=== PATIENT | female | born 1940 | race Caucasian/White ===

== ENCOUNTER 2018-05-01 18:46 | Emergency (ER) | payer MEDICARE, BC ==
--- NOTE | 2018-05-01 20:12 | ED ---
Abdominal Pain/Female - HPI Summary HPI Summary: Pt is a 77 y/o F presenting to the ED with a chief complaint of LLQ abd pain intermittently since 04/28/18 but steady since this afternoon. The pt reports a low fever, abd pain, normal bowel movements, and decreased frequency of urination. The pt denies N/V, hx of stomach surgery, diverticulitis, or kidney stones. - History of Current Complaint Chief Complaint: EDAbdPain Stated Complaint: SEVERE ABD CRAMPS SINCE 4 PM PER PT Time Seen by Provider: 05/01/18 20:08 Hx Obtained From: Patient Onset/Duration: Gradual Onset, Lasting Days, Still Present Timing: Days Severity Initially: Mild Severity Currently: Moderate Pain Intensity: 3 Pain Scale Used: 0-10 Numeric Location: Discrete At: LLQ Radiates: No Character: Cramping Aggravating Factor(s): Movement, Deep Breaths Alleviating Factor(s): Nothing Associated Signs and Symptoms: Positive: Fever, Urinary Symptoms - decreased urination. Negative: Nausea, Vomiting Allergies/Adverse Reactions: Allergies Allergy/AdvReac Type Severity Reaction Status Date / Time anaesthesia Allergy Severe violent Uncoded 05/01/18 18:50 emesis Home Medications: Home Medications [employer] Tab 1 cap PO DAILY 05/01/18 [History Confirmed ] Fish Oil 1,200 mg Softgel 1 cap PO DAILY 05/01/18 [History Confirmed 05/01/18] Vitamin C TAB* 1,000 mg PO DAILY 05/01/18 [History Confirmed 05/01/18] Vitamin D TAB* 1,000 units PO DAILY 05/01/18 [History Confirmed 05/01/18] PMH/Surg Hx/FS Hx/Imm Hx Previously Healthy: Yes Endocrine/Hematology History: Reports: Hx Thyroid Disease - 1/2 thyroid removed no problems since Denies: Hx Diabetes Cardiovascular History: Reports: Hx Angina, Hx Hypercholesterolemia, Hx Hypertension Respiratory History: Denies: Hx Asthma, Hx Chronic Obstructive Pulmonary Disease (COPD) GI History: Denies: Hx Diverticulosis History: Denies: Hx Kidney Stones Musculoskeletal History: Reports: Hx 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 Denies: Hx Osteoporosis Sensory History: Reports: Hx Cataracts - slight in both, Hx Contacts or Glasses Denies: Hx Hearing Aid Opthamlomology History: Reports: Hx Cataracts - slight in both, Hx Contacts or Glasses Neurological History: Reports: Hx Migraine - off and on - none recently - Cancer History Hx Chemotherapy: No Hx Radiation Therapy: No - Surgical History Surgery Procedure, Year, and Place: partial thyroidectomy Hx Anesthesia Reactions: Yes Infectious Disease History: No Infectious Disease History: Denies: Traveled Outside the [place] in Last 30 Days - Family History Known Family History: Negative: Renal Disease, Respiratory Disease - Social History Alcohol Use: None Hx Substance Use: No Substance Use Type: Reports: None Hx Tobacco Use: No Smoking Status (MU): Never Smoked Tobacco Review of Systems Positive: Fever Positive: Abdominal Pain. Negative: Vomiting, Nausea Positive: frequency - decreased frequency of urination All Other Systems Reviewed And Are Negative: Yes Physical Exam - Summary Physical Exam Summary: VITAL SIGNS: Reviewed. GENERAL: Patient is a well-developed and nourished female who is lying comfortable in the stretcher. Patient is not in any acute respiratory distress. HEAD AND FACE: No signs of trauma. No ecchymosis, hematomas or skull depressions. No sinus tenderness. EYES: PERRLA, EOMI x 2, No injected conjunctiva, no nystagmus. EARS: Hearing grossly intact. Ear canals and tympanic membranes are within normal limits. MOUTH: Oropharynx within normal limits. NECK: Supple, trachea is midline, no adenopathy, no JVD, no carotid bruit, no c- spine tenderness, neck with full ROM. CHEST: Symmetric, no tenderness at palpation LUNGS: Clear to auscultation bilaterally. No wheezing or crackles. CVS: Regular rate and rhythm, S1 and S2 present, no murmurs or gallops appreciated. ABDOMEN: LLQ tenderness. Abd diffusely distended. No rebound no guarding, and no masses palpated. Bowel sounds are normal. EXTREMITIES: FROM in all major joints, no edema, no cyanosis or clubbing. NEURO: Alert and oriented x 3. No acute neurological deficits. Speech is normal and follows commands. SKIN: Dry and warm Triage Information Reviewed: Yes Vital Signs On Initial Exam: Initial Vitals Temp Pulse Resp BP Pulse Ox 98.4 F 95 18 165/80 95 05/01/18 18:50 05/01/18 18:50 05/01/18 18:50 05/01/18 18:50 05/01/18 18:50 Vital Signs Reviewed: Yes Diagnostics - Vital Signs Vital Signs Temp Pulse Resp BP Pulse Ox 03/05/19 18:50 98.4 F 95 18 165/80 95 - Laboratory Result Diagrams: 05/01/18 20:43 05/01/18 20:43 Lab Statement: Any lab studies that have been ordered have been reviewed, and results considered in the medical decision making process. - CT Abd/pelv CT CT Interpretation Completed By: Radiologist Summary of CT Findings: 1. Fairly extensive sigmoid diverticulitis. No evidence of perforation or abscess. Mild associated small bowel ileus. 2. Left adnexal cyst measuring 3 x 4 cm. Followup ultrasound recommended, non-emergently. ED physician has reviewed this report. Abdominal Pain Fem Course/Dx - Course Course Of Treatment: Pt is a 77 y/o F presenting to the ED with a chief complaint of abd pain intermittently since 04/28/18 in her LLQ but steady since this afternoon. The pt reports a low fever, abd pain, normal bowel movements, and decreased frequency of urination. The pt denies N/V. Abd/pelv CT shows 1. Fairly extensive sigmoid diverticulitis. No evidence of perforation or abscess. Mild associated small bowel ileus.2. Left adnexal cyst measuring 3 x 4 cm. Followup ultrasound recommended, non-emergently. I discussed the results with the patient and gave her the option of going home or being admitted to the hospital. She would like to go home, and she will be discharged with abx and instructions to follow up with her primary care provider. - Diagnoses Provider Diagnoses: Diverticulitis Discharge - Sign-Out/Discharge Documenting (check all that apply): Patient Departure Patient Received Moderate/Deep Sedation with Procedure: No - Discharge Plan Condition: Stable Disposition: HOME Prescriptions: Levofloxacin TAB* [Levaquin TAB*] 500 mg PO DAILY #7 tab metroNIDAZOLE [Flagyl 500 MG TAB] 500 mg PO TID #1 tab Patient Education Materials: Diverticulitis (ED) Referrals: Yola Chua MD [Primary Care Provider] - Additional Instructions: Please follow up with your primary care provider within the next three days. Return to the emergency department with any new or worsening symptoms. - Attestation Statements Document Initiated by Scribe: Yes Documenting Scribe: Fide Mims Provider For Whom Scribe is Documenting (Include Credential): Viktor Olivas MD. Scribe Attestation: I, Fide O'Raimundo, scribed for Viktor Olivas MD. on 05/02/18 at 0158. Status of Scribe Document: Ready
[2018-05-01] MEDS ORDERED: Acetaminophen TAB* 325 MG PO ONE (20:27)
[2018-05-01] MEDS ORDERED: NS 0.9% 1000 ML** 1,000 ML IV ONE (20:27)
[2018-05-01 20:54] LABS: ABS Basophils 0.1 10^3/ul (0-0.2); ABS Eosinophils 0 10^3/ul (0-0.6); ABS Lymphocytes 1.4 10^3/ul (1.0-4.8); ABS Monocytes 0.9 10^3/ul (0-0.8); ABS Neutrophils 9.2 10^3/ul (1.5-7.7); ABS Nucleated RBC 0 10^3/ul; Eosinophil % 0.1 %; Hematocrit 36 % (35-47); Hemoglobin 11.7 g/dl (12.0-16.0); Lymphocyte % 12.3 %; Mean Corpuscular HGB Conc 33 g/dl (31-36); Mean Corpuscular Hemoglobin 29 pg (27-31); Mean Corpuscular Volume 87 fL (80-97); Mean Platelet Volume 7.4 fL (7.4-10.4); Nucleated Red Blood Cells % 0; Platelet Count 307 10^3/ul (150-450); Red Blood Count 4.09 10^6/ul (4.00-5.40); Red Cell Distribution Width 14 % (10.5-15); White Blood Count 11.6 10^3/ul (3.5-10.8)
[2018-05-01 21:06] LABS: Activated Partial Thrombo Time 25.5 seconds (26.0-36.3); INR 1.1 (0.77-1.02)
[2018-05-01 21:11] LABS: Albumin/Globulin Ratio 1.2 (1-3); C Reactive Protein 95.43 mg/L (<8.01); Calcium 9.4 mg/dL (8.6-10.3); EGFR African American 109.5 (>60); EGFR Non-African American 90.5 (>60); Globulin 3.3 g/dL (2-4); Potassium 3.8 mmol/L (3.5-5.0); Total Bilirubin 0.6 mg/dL (0.2-1.0); Total Protein 7.3 g/dL (6.4-8.9)
[2018-05-01] MEDS ORDERED: Iohexol 300* (CONTRAST) 10 ML SDV IV ONE (21:18)
[2018-05-01] MEDS ORDERED: metroNIDAZOLE TAB* 250 MG PO ONE (23:46)
[2018-05-01] MEDS ORDERED: Levofloxacin TAB* 500 MG PO ONE (23:51)
[2018-05-02 00:59] VITALS: BP 126/67
== END 2018-05-02 00:35 | disposition home or self-care (01) ==
LOC: ED 18:46
DX: K57.92 Diverticulitis of intestine, part unspecified, without perforation or abscess without bleeding (principal); R50.9 Fever, unspecified; R10.32 Left lower quadrant pain; E07.9 Disorder of thyroid, unspecified; I10 Essential (primary) hypertension; I20.9 Angina pectoris, unspecified
CPT/HCPCS: 36415; 74177; 80053; 82150; 83605; 83690; 83735; 85025; 85610; 85730; 86140; 87040; 96360; 96361; 99284; A9270-GY; Q9967

== ENCOUNTER 2019-03-25 21:52 | Inpatient (IN) | payer MEDICARE, BC ==
[2019-03-26 00:16] LABS: ABS Basophils 0.1 10^3/ul (0-0.2); ABS Lymphocytes 1.1 10^3/ul (1.0-4.8); ABS Monocytes 0.9 10^3/ul (0-0.8); ABS Neutrophils 9.8 10^3/ul (1.5-7.7); Eosinophil % 0.1 %; Hematocrit 34 % (35-47); Hemoglobin 11.6 g/dL (12.0-16.0); Lymphocyte % 9.5 %; Mean Corpuscular HGB Conc 34 g/dL (31-36); Mean Corpuscular Hemoglobin 28 pg (27-31); Mean Corpuscular Volume 82 fL (80-97); Mean Platelet Volume 6.9 fL (7.4-10.4); Platelet Count 472 10^3/uL (150-450); Red Blood Count 4.21 10^6 /uL (3.70-4.87); Red Cell Distribution Width 16 % (10-15); White Blood Count 11.8 10^3/uL (3.5-10.8)
[2019-03-26 00:27] LABS: Albumin 3.8 g/dL (3.2-5.2); Albumin/Globulin Ratio 1.1 (1-3); BUN/Creatinine Ratio 10.4 (8-20); C Reactive Protein 91.27 mg/L (<8.01); Calcium 9.4 mg/dL (8.6-10.3); EGFR African American 46.1 (>60); EGFR Non-African American 38.1 (>60); Globulin 3.5 g/dL (2-4); Potassium 3.4 mmol/L (3.5-5.0); Total Bilirubin 0.5 mg/dL (0.2-1.0); Total Protein 7.3 g/dL (6.4-8.9)
[2019-03-26 01:22] LABS: Urine Appearance Clear; Urine Bilirubin Negative (Negative); Urine Blood Negative (Negative); Urine Color Yellow; Urine Glucose Negative (Negative); Urine Ketones Trace (Negative); Urine Nitrite Negative (Negative); Urine Protein Negative (Negative); Urine Specific Gravity 1.009 (1.010-1.030); Urine Urobilinogen Negative (Negative)
[2019-03-26 01:30] LABS: Urine Bacteria 1+ (Absent); Urine Red Blood Cell 2+(6-10/hpf) (Absent); Urine Squamous Epithelial Cell Present (Absent); Urine White Blood Cell 3+(>20/hpf) (Absent)
[2019-03-26] MEDS ORDERED: Ondansetron INJ* 2 MG/ML VIAL IV ONE (02:02)
[2019-03-26] MEDS ORDERED: Famotidine IV* 10 MG/ML 2 ML (20 mg) IV SLOW PU ONE (02:02)
[2019-03-26] MEDS ORDERED: Lactated Ringers 1000 ML Bag* 1,000 ML IV ONE ×2 (02:02→06:24)
--- NOTE | 2019-03-26 02:09 | ED ---
Abdominal Pain/Female - HPI Summary HPI Summary: The patient is a 78 y/o female with a chief complaint of LLQ pain onset six days ago. She reports that she has a history of diverticulitis initially diagnosed a year ago but managed with antibiotic use. She was re-diagnosed six days ago by her PCP, who placed her on Cipro and Flagyl. She has since been experiencing LLQ and left flank pain and GI symptoms including nausea, vomiting , diarrhea, and decreased oral intake. She denies any dysuria or burning with urination. She is not currently in pain. She notes history of gallstones without any surgery. No other abdominal surgeries. She is also concerned for whiteness on her tongue without any current steroid use. PMHx: thyroid disease with partial removal, angina, HLD, HTN. Nonsmoker, no EtOH, no substance use. Medications reviewed. Allergies noted. - History of Current Complaint Chief Complaint: EDAbdPain Stated Complaint: POSSIBLE ALLERGIC REACTION Time Seen by Provider: 03/26/19 01:47 Hx Obtained From: Patient Onset/Duration: Lasting Days - six, Still Present Timing: Constant Severity Initially: Mild Severity Currently: Moderate Pain Intensity: 0 Pain Scale Used: 0-10 Numeric Location: Discrete At: LLQ Radiates: No Aggravating Factor(s): Nothing Alleviating Factor(s): Nothing Associated Signs and Symptoms: Positive: Nausea, Vomiting, Diarrhea, Other: - decreased oral intake, whiteness of tongue. Negative: Urinary Symptoms Allergies/Adverse Reactions: Allergies Allergy/AdvReac Type Severity Reaction Status Date / Time Anesthetics - Amide Type AdvReac Severe Vomiting Verified 03/26/19 10:45 Anesthetics - Kerry Type- AdvReac Severe Vomiting Verified 03/26/19 10:45 Parabens Home Medications: Home Medications Ciprofloxacin TAB* [Cipro 500 MG TAB*] 500 mg PO BID 03/26/19 [History Confirmed 03/26/19] PMH/Surg Hx/FS Hx/Imm Hx Endocrine/Hematology History: Reports: Hx Thyroid Disease - 1/2 thyroid removed no problems since Denies: Hx Diabetes Cardiovascular History: Reports: Hx Angina, Hx Hypercholesterolemia, Hx Hypertension, Other Cardiovascular Problems/Disorders - HYPERCHOLESTEROLEMIA Respiratory History: Denies: Hx Asthma, Hx Chronic Obstructive Pulmonary Disease (COPD) GI History: Reports: Other GI Disorders - diverticulitis History: Denies: Hx Kidney Stones Musculoskeletal History: Reports: Hx 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 Denies: Hx Osteoporosis Sensory History: Reports: Hx Cataracts - slight in both, Hx Contacts or Glasses Denies: Hx Hearing Aid Opthamlomology History: Reports: Hx Cataracts - slight in both, Hx Contacts or Glasses Neurological History: Reports: Hx Migraine - off and on - none recently - Cancer History Hx Chemotherapy: No Hx Radiation Therapy: No - Surgical History Surgical History: Yes Surgery Procedure, Year, and Place: partial thyroidectomy Hx Anesthesia Reactions: Yes Infectious Disease History: No Infectious Disease History: Denies: Traveled Outside the [place] in Last 30 Days - Family History Known Family History: Negative: Renal Disease, Respiratory Disease - Social History Alcohol Use: None Hx Substance Use: No Substance Use Type: Reports: None Hx Tobacco Use: No Smoking Status (MU): Never Smoked Tobacco Review of Systems Positive: Other - whiteness of tongue Positive: Abdominal Pain - LLQ, Vomiting, Diarrhea, Nausea, Other - decreased oral intake Positive: flank pain - left. Negative: burning, dysuria All Other Systems Reviewed And Are Negative: Yes Physical Exam - Summary Physical Exam Summary: Constitutional: Well-developed, Well-nourished, Alert. (-) Distressed Skin: Warm, Dry HENT: Normocephalic; Atraumatic Eyes: Conjunctiva normal Neck: Musculoskeletal ROM normal neck. (-) JVD, (-) Stridor, (-) Tracheal deviation Cardio: Rhythm regular, rate normal, Heart sounds normal; Intact distal pulses; The pedal pulses are 2+ and symmetric. Radial pulses are 2+ and symmetric. Pulmonary/Chest wall: Effort normal. (-) Respiratory distress, (-) Wheezes, (-) Rales Abd: Soft, (-) tenderness, (-) Distension, (-) Guarding, (-) Rebound Musculoskeletal: (-) CVA tenderness, (-) Edema Neuro: Alert, Oriented x3 Psych: Mood and affect Normal Triage Information Reviewed: Yes Vital Signs On Initial Exam: Initial Vitals Temp Pulse Resp BP Pulse Ox 99.2 F 92 18 155/81 96 03/25/19 21:54 03/25/19 21:54 03/25/19 21:54 03/25/19 21:54 03/25/19 21:54 Vital Signs Reviewed: Yes Procedures - Sedation Patient Received Moderate/Deep Sedation with Procedure: No Diagnostics - Vital Signs Vital Signs Temp Pulse Resp BP Pulse Ox 03/26/19 01:06 81 94 03/26/19 01:04 81 145/84 95 03/26/19 00:00 98.3 F 85 18 143/81 96 03/25/19 21:54 99.2 F 92 18 155/81 96 - Laboratory Lab Results: Lab Results 03/25/19 03/26/19 03/26/19 Range/Units 23:09 00:02 00:02 WBC 11.8 H (3.5-10.8) 10^3/uL RBC 4.21 (3.70-4.87) 10^6 /uL Hgb 11.6 L (12.0-16.0) g/dL Hct 34 L (35-47) % MCV 82 (80-97) fL MCH 28 (27-31) pg MCHC 34 (31-36) g/dL RDW 16 H (10-15) % Plt Count 472 H (150-450) 10^3/uL MPV 6.9 L (7.4-10.4) fL Neut % (Auto) 82.4 % Lymph % (Auto) 9.5 % [place] % (Auto) 7.5 % Eos % (Auto) 0.1 % Baso % (Auto) 0.5 % Absolute Neuts (auto) 9.8 H (1.5-7.7) 10^3/ul Absolute Lymphs (auto) 1.1 (1.0-4.8) 10^3/ul Absolute Monos (auto) 0.9 H (0-0.8) 10^3/ul Absolute Eos (auto) 0.0 (0-0.6) 10^3/ul Absolute Basos (auto) 0.1 (0-0.2) 10^3/ul Absolute Nucleated RBC 0.0 10^3/ul Nucleated RBC % 0.0 Sodium 136 (135-145) mmol/L Potassium 3.4 L (3.5-5.0) mmol/L Chloride 101 (101-111) mmol/L Carbon Dioxide 26 (22-32) mmol/L Anion Gap 9 (2-11) mmol/L BUN 14 (6-24) mg/dL Creatinine 1.35 H (0.51-0.95) mg/dL Est GFR ( Amer) 46.1 (>60) Est GFR (Non-Af Amer) 38.1 (>60) BUN/Creatinine Ratio 10.4 (8-20) Glucose 122 H (70-100) mg/dL Lactic Acid (0.5-2.0) mmol/L Calcium 9.4 (8.6-10.3) mg/dL Total Bilirubin 0.50 (0.2-1.0) mg/dL AST 15 (13-39) U/L ALT 18 (7-52) U/L Alkaline Phosphatase 85 (34-104) U/L C-Reactive Protein 91.27 H (<8.01) mg/L Total Protein 7.3 (6.4-8.9) g/dL Albumin 3.8 (3.2-5.2) g/dL Globulin 3.5 (2-4) g/dL Albumin/Globulin Ratio 1.1 (1-3) Lipase 19 (11.0-82.0) U/L Urine Color Yellow Urine Appearance Clear Urine pH 5.0 (5-9) Ur Specific [place] 1.009 L (1.010-1.030) Urine Protein Negative (Negative) Urine Ketones Trace A (Negative) Urine Blood Negative (Negative) Urine Nitrate Negative (Negative) Urine Bilirubin Negative (Negative) Urine Urobilinogen Negative (Negative) Ur Leukocyte Esterase 3+ A (Negative) Urine WBC (Auto) 3+(>20/hpf) A (Absent) Urine RBC (Auto) 2+(6-10/hpf) A (Absent) Ur Squamous Epith Cells Present A (Absent) Urine Bacteria 1+ A (Absent) Urine Glucose Negative (Negative) 03/26/19 Range/Units 00:02 WBC (3.5-10.8) 10^3/uL RBC (3.70-4.87) 10^6 /uL Hgb (12.0-16.0) g/dL Hct (35-47) % MCV (80-97) fL MCH (27-31) pg MCHC (31-36) g/dL RDW (10-15) % Plt Count (150-450) 10^3/uL MPV (7.4-10.4) fL Neut % (Auto) % Lymph % (Auto) % [place] % (Auto) % Eos % (Auto) % Baso % (Auto) % Absolute Neuts (auto) (1.5-7.7) 10^3/ul Absolute Lymphs (auto) (1.0-4.8) 10^3/ul Absolute Monos (auto) (0-0.8) 10^3/ul Absolute Eos (auto) (0-0.6) 10^3/ul Absolute Basos (auto) (0-0.2) 10^3/ul Absolute Nucleated RBC 10^3/ul Nucleated RBC % Sodium (135-145) mmol/L Potassium (3.5-5.0) mmol/L Chloride (101-111) mmol/L Carbon Dioxide (22-32) mmol/L Anion Gap (2-11) mmol/L BUN (6-24) mg/dL Creatinine (0.51-0.95) mg/dL Est GFR ( Amer) (>60) Est GFR (Non-Af Amer) (>60) BUN/Creatinine Ratio (8-20) Glucose (70-100) mg/dL Lactic Acid 0.5 (0.5-2.0) mmol/L Calcium (8.6-10.3) mg/dL Total Bilirubin (0.2-1.0) mg/dL AST (13-39) U/L ALT (7-52) U/L Alkaline Phosphatase (34-104) U/L C-Reactive Protein (<8.01) mg/L Total Protein (6.4-8.9) g/dL Albumin (3.2-5.2) g/dL Globulin (2-4) g/dL Albumin/Globulin Ratio (1-3) Lipase (11.0-82.0) U/L Urine Color Urine Appearance Urine pH (5-9) Ur Specific [place] (1.010-1.030) Urine Protein (Negative) Urine Ketones (Negative) Urine Blood (Negative) Urine Nitrate (Negative) Urine Bilirubin (Negative) Urine Urobilinogen (Negative) Ur Leukocyte Esterase (Negative) Urine WBC (Auto) (Absent) Urine RBC (Auto) (Absent) Ur Squamous Epith Cells (Absent) Urine Bacteria (Absent) Urine Glucose (Negative) Result Diagrams: 03/27/19 08:11 03/27/19 08:11 Lab Statement: Any lab studies that have been ordered have been reviewed, and results considered in the medical decision making process. - Radiology Abd/Pel CT Radiology Interpretation Completed By: Radiologist Summary of Radiographic Findings: Impression: 1. There is wall thickening noted of the sigmoid colon with surrounding inflammatory changes and scattered diverticula, findings are concerning for acute diverticulitis. There are multiple foci of pneumoperitoneum noted adjacent to the region of bowel inflammation concerning for perforation. 2. There are large gallstones noted within a partially collapsed gallbladder. 3. If there is a stable left adnexal cyst noted measuring approximately 4.2 cm. The uterus is unremarkable. 4. There is a stable calcified lesion noted in the right adnexa measuring up to 1.8 cm. ED physician has reviewed this report. Re-Evaluation - Re-Evaluation First Eval Comment: Plan for fluids, antiemetics, CT Second Eval Re-Evaluation Time: 04:00 Comment: Patient agreeable with admission Abdominal Pain Fem Course/Dx - Course Course Of Treatment: Patient is a 78 y/o female who has a history of diverticulitis managed with antibiotics presenting with an acute episode of LLQ and left flank pain accompanied by decreased oral intake, nausea, vomiting, and diarrhea despite being placed on Cipro and Flagyl by her PCP. No symptoms. Physical exam is negative for abdominal or CVA tenderness. Labs results reveal elevated WBCs, CRP of 91.27. UA consistent with UTI with 3+ WBCs, 2+ RBCs, 1+ bacteria. Patient administered lactated ringers, Pepcid, Zofran, and Zosyn in the ED. Abd/Pel CT impression reveals diverticulitis with perforation. Dr. Santiago accepts the patient for admission. Patient agreeable with plan. - Diagnoses Provider Diagnoses: Diverticulitis of intestine with perforation, Peritonitis - Provider Notifications Discussed Care Of Patient With: Harvey Santiago - hospitalist Time Discussed With Above Provider: 04:30 Instructed by Provider To: Other - Dr. Santiago accepts patient for admission. Discharge ED - Sign-Out/Discharge Documenting (check all that apply): Patient Departure - Patient accepted for admission by Dr. Santiago. - Discharge Plan Condition: Stable Disposition: ADMITTED TO [facility] - Attestation Statements Document Initiated by David: Yes Documenting Scribe: Angie Arroyo Provider For Whom David is Documenting (Include Credential): MD David Akers Attestation: IAngie scribed for Dr. Sergio Harris MD on 03/27/19 at 1147. Status of Scribe Document: Ready
[2019-03-26] MEDS ORDERED: Iodixanol* (CONTRAST) 320 MG/ML 100 ML SDV IV ONE (04:14)
[2019-03-26] MEDS ORDERED: Piperacillin/Tazobac ADVAN(*) 3.375 GM in NS 0.9% 100 ML* 100 ML IVPB ONE ×2 (04:50→08:00)
[2019-03-26] MEDS ORDERED: Lactated Ringers 1000 ML Bag* 1,000 ML IV SCH (05:00)
[2019-03-26] MEDS ORDERED: Zosyn per Pharmacy* NOTE FOLLOW UP SCH ×2 (06:00→07:00)
[2019-03-26] MEDS ORDERED: NS 0.9% 1000 ML** 1,000 ML IV SCH (07:00)
[2019-03-26] MEDS ORDERED: Lorazepam PYXIS KEY ONE (08:47)
[2019-03-26] MEDS: amLODIPine TAB* 5 MG PO SCH (09:25)
[2019-03-26] MEDS ORDERED: Clotrimazole TROCHE* 10 MG TROCHE PO SCH (10:00)
[2019-03-26] MEDS: Clotrimazole TROCHE* 10 MG TROCHE PO SCH ×4 (10:02→23:10)
[2019-03-26] MEDS: Pantoprazole IV* 40 MG IV SCH (10:45)
--- NOTE | 2019-03-26 11:16 | HP ---
HISTORY AND PHYSICAL: DATE OF ADMISSION: 03/26/19 ATTENDING PHYSICIAN: Harvey Santiago MD PRIMARY CARE PROVIDER: Dr. Chua. CONSULTING GENERAL SURGEON: Dr. Oakes. CHIEF COMPLAINT: Nausea, vomiting, inability to tolerate p.o., left lower quadrant abdominal pain. HISTORY OF PRESENT ILLNESS: Marycruz Mcadams is a 78-year-old female with past medical history of hypertension, hyperlipidemia, hemorrhoids, and episode of diverticulitis in 2019. Approximately, 03/13/19 she started to develop left lower quadrant abdominal pain. A week later on 03/20/19, she saw a colleague of her primary care provider, Dr. Velez, who suspected given her history another episode of diverticulitis and she was started empirically on ciprofloxacin and Flagyl. The pain almost immediately improved within a day or 2. However, she continued to have some nausea and vomiting and was initially only tolerating things like Jell-O, poornima jake, but then even the Jell-O she was not tolerating. She vomited once a day prior to admission, twice the day of admission. She also noticed some white discoloration of her tongue and that was one of the side effects of the medications to seek medical attention and therefore she did so. She had been having some low-grade fevers at home. She has been having some diarrhea and she, given her history of hemorrhoids, sometimes has some trace blood with diarrhea. Initial workup in [facility] emergency room included a mild leukocytosis of 11.8, temperature of 99.2, heart rate of 92. No lactic acidosis at 0.5. CRP was 91. Creatinine was elevated to 1.35 from baseline of 0.7 a month prior. She had a CT abdomen and pelvis with IV and oral contrast, demonstrated wall thickening of the sigmoid colon with surrounding inflammatory changes and scattered diverticula, findings concerning for acute diverticulitis. There were a multiple foci of pneumoperitoneum noted adjacent to the region of bowel inflammation concerning for perforation. There were large gallstones noted in the partially collapsed gallbladder, stable left adnexal cyst measuring approximately 4.2 cm and a stable calcified lesion in the right adnexa measuring up to 1.[address] Harris contacted general surgeon called Dr. Oakes, who recommended IV fluids, Zosyn, and p.o. and consideration for Medicine admission until he can evaluate further in the morning given Dr. Harris's report that she was nontoxic-appearing with no peritoneal signs or even any abdominal pain at the moment and mild leukocytosis. A year ago, she was diagnosed with diverticulitis that was fairly extensive in the sigmoid colon with oral antibiotics without any admission. She has had 3 colonoscopies in her life. She would refuse any further given that her from a perforation complication from a colonoscopy at this hospital approximately 3 years ago. She has never had a EGD before. PAST MEDICAL HISTORY: Hypertension, hyperlipidemia, hemorrhoids diverticulitis. PAST SURGICAL HISTORY: Half of her thyroid was removed. MEDICATIONS: Include: 1. Fish oil 1 capsule p.o. daily. 2. [employer] tab 1 capsule p.o. daily. 3. Aspirin 81 mg daily. 4. Vitamin D 1000 units p.o. daily. 5. Vitamin C 1000 mg p.o. daily. 6. Flagyl 500 mg p.o. t.i.d. 7. Losartan 100 mg p.o. daily. 8. Fluvastatin 40 mg p.o. at bedtime. 9. Ciprofloxacin 500 mg p.o. b.i.d. ALLERGIES: She had a severe reaction with to one of her anesthesia procedures to remove half of her thyroid. No other details available. FAMILY HISTORY: Her father and mother both of lung cancer at age mother of 51 and father of 61. She has 1 brother who of a myocardial infarction and exposure. One sister is alive and one sister who of gallbladder cancer. Both brother and sister around age 80. SOCIAL HISTORY: The patient is a never smoker, does not drink. She is a retired teacher. 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 She desires to be a full code. Her medical surrogate is her son, Juan Luis, who is at the bedside. REVIEW OF SYSTEMS: Complete 14-point review of systems negative except as per HPI. PHYSICAL EXAMINATION GENERAL APPEARANCE: In no acute distress. VITAL SIGNS: Temperature initially 99.2, pulse rate initially 92, satting 92% to 96% on room air, blood pressure 158/81. HEENT: Normocephalic and atraumatic. Pupils are equal, round, and reactive to light. Extraocular motions intact. No scleral icterus. There is evidence of thrush in her mouth. LUNGS: Clear to auscultation bilaterally with no wheezing, rales, or rhonchi. CARDIOVASCULAR: Regular rate and rhythm. No murmurs, rubs, or gallops. ABDOMEN: Soft, nontender, nondistended. No rebound or guarding. No Marrero sign. No CVA tenderness. EXTREMITIES: Warm and well perfused. No peripheral edema. SKIN: No lesions. No rashes. NEUROLOGIC: Cranial nerves II through XII intact. Moving all extremities. Walking in a stable gait. Alert and oriented x4. DIAGNOSTIC STUDIES/LAB DATA: White count 11.8, hemoglobin 11.6, hematocrit 34, platelets 472, RDW 16, MCV 82. Sodium 136, potassium 3.4, carbon dioxide 26, BUN 14, creatinine 1.35, glucose 122, lactic acid 0.5, calcium 9.4. Total bili 0.5, AST 15, ALT 18, alk phos 85. CRP 91.3. Albumin 3.8. Lipase 19. Urinalysis: 3+ leukocyte esterase, 3+ wbc's, 2+ rbc's, 1+ bacteria, trace ketones, specific gravity 1.009, squamous epithelial cells present. Imaging: CT abdomen and pelvis with p.o. and IV contrast demonstrated wall thickening of the sigmoid colon with surrounding inflammatory changes and scattered diverticula, findings concerning for acute diverticulitis. There were a multiple foci of pneumoperitoneum noted adjacent to the region of bowel inflammation concerning for perforation. There were large gallstones noted in the partially collapsed gallbladder, stable left adnexal cyst measuring approximately 4.2 cm and a stable calcified lesion in the right adnexa measuring up to 1.8 cm. ASSESSMENT AND PLAN: Pineda Mcadams is a 78-year-old female with past medical history of hypertension, hyperlipidemia, hemorrhoids, diverticulitis, who had abdominal pain starting about 2 weeks ago and resolved after starting outpatient Cipro and Flagyl, but she had continued progressive nausea, vomiting , and inability to tolerate p.o. intake on these medications. She developed white discoloration of her tongue, which concerned her. She has evidence of acute diverticulitis on CT abdomen and pelvis with p.o. and IV contrast. The case has been discussed with between Dr. Oakes and Dr. Harris. Dr. Oakes plans to see the patient in the morning after Medicine admits the patient, see her on General Surgery service. Recommendation to continue Zosyn, IV fluids, n.p.o. in case surgical intervention is required. She is nontoxic-appearing with no peritoneal signs. We will give her Zofran p.r.n. Get an EKG for possible preoperative risk stratification and check her QTc. I am going to continue her fluvastatin or can be substituted with atorvastatin as per formulary requirement. For her thrush, I am going to start clotrimazole troches 10 mg p.o. 5 times a day starting at [address] Oakes can see her and rule out that she would need an operative time this morning. Holding her losartan given her acute kidney injury with elevated creatinine of 1.35, substitute for amlodipine 5 mg daily and monitor her blood pressures, which are normotensive here potential diverticulitis infection. For her DVT prophylaxis, she can have SCDs. She is n.p.o. Medical surrogate is her son , Juan Luis. For IV fluids, she is status post 2 L of lactated Ringer's, continue at remain as IV 100 cc an hour. [id number]/[facility] #: [id number] MTDD
--- NOTE | 2019-03-26 11:25 | HP ---
CC: Dr. Chua; [facility] HISTORY AND PHYSICAL: DATE OF ADMISSION: 03/26/19 CHIEF COMPLAINT: Ms. Mcadams is a 78-year-old female who was admitted in the overnight period with a diagnosis of complicated diverticulitis. HISTORY OF PRESENT ILLNESS: The patient's symptoms started almost 2 weeks ago when she had intermitt ent left lower quadrant pain. She thought she might have had flu. It was associated with some GI ups et and the patient ultimately presented to her primary care doctor approximately a week ago with the thought that she possibly had diverticulitis similar to her first diverticulitis episode in April of 2018. She was started on ciprofloxacin and Flagyl and her pain promptly improved. She was told to c ontact the office or emergency room if she had any allergic symptoms possibly to the medication. The patient complained of nausea and multiple episodes of vomiting along with possible thrush, and for t his reason, presented to the ER. She has now presented with abdominal pain. She was treated with IV fluids and sent for a CAT scan of the abdomen and pelvis with p.o. and IV contrast. These images and report were reviewed and was consistent with perforated sigmoid diverticulitis. The patient had mult iple large calcified gallstones as well. No free air other than in the sigmoid mesentery. No absces s was noted. No evidence of small bowel obstruction. No free fluid, air in the rectum.. She was ad mitted and started on Zosyn, has received a single dose at this point. The patient is concerned about eating and afraid that it might give her additional nausea. She is pa ssing flatus and having loose bowel movements for almost 4 days now. PAST MEDICAL HISTORY: 1. Hypercholesterolemia. 2. Migraine headaches. PAST SURGICAL HISTORY: 1. Thyroidectomy. 2. No abdominal surgeries. MEDICATIONS: Home medications include: 1. Fluvastatin. 2. Ciprofloxacin. 3. Metronidazole. ALLERGIES: She is not allergic to any discrete medications. FAMILY HISTORY: Noncontributory. Mother and father of respiratory diseases secondary to smokin g. No history of colon cancer. SOCIAL HISTORY: Nonsmoker. Live alone. Very active. Children live nearby. REVIEW OF SYSTEMS: On review of systems, no fevers or chills. Nausea and vomiting as described. Ab dominal pain as described that has resolved. No shortness of breath or chest pain. History of colon oscopies, but the patient refused to ever get another one since her after being perforat ed during colonoscopy. The patient had a history of diverticulitis in April of last year. She presen antonio to the emergency room where a CT scan revealed this diagnosis and the patient was sent home and n ot admitted and did well with antibiotics alone. Denies any dysuria. No pneumaturia. No vaginal di scharge. No endocrine disorders. No bleeding or clotting disorders. No psychiatric illnesses. No neurologic illnesses other than intermittent migraines. PHYSICAL EXAMINATION GENERAL: Alert and oriented x3, in no apparent distress. VITAL SIGNS: She is afebrile. Vital signs are stable. HEENT: Head, ears, eyes, nose, and throat: Normocephalic, atraumatic. Sclerae anicteric. Mucous m embranes are moist. NECK: No lymphadenopathy. LUNGS: Clear. ABDOMEN: Soft, nondistended, nontender. Hypoactive bowel sounds. EXTREMITIES: Within normal limits. RECTAL: Not performed. DIAGNOSTIC STUDIES/LAB DATA: Labs reviewed show a white count of 11.8 with elevated platelets. Cleopatra ramon panel reviewed, shows an elevated creatinine of 1.35 and an elevated CRP of 91. The patient's baseline creatinine is less than 1. Urinalysis is negative for nitrites, positive for white blood ce lls. CAT scan reviewed and described above. IMPRESSION AND PLAN: Complicated diverticulitis with localized perforation, but no abscess in a matilda ent with benign abdomen and loose bowel movements with nausea and vomiting. The GI issues may be sec ondary to antibiotics, and we will convert it into renal dosing, hopefully with better results. I be lieve the patient would benefit from IV antibiotics at this point. We will forgo any urgent operatio n given the patient's stable situation. She shows no signs of sepsis or obstruction. Plan will be fo r introducing liquids later today. We will keep her on IV fluids, and she will have labs drawn in morning. The patient also is dealing with thrush, and we will start her on a swish and swallow nys tatin. She also has acute kidney injury and we will look towards maintaining hydration and repeating labs. This is all discussed with her and her daughter today. They understand that they may require urgent surgery, which would be a Erin procedure, but hopefully, the patient will benefit from jus t antibiotics and observation alone and we can look towards discussing the care as an outpatient. Th e patient will likely always refuse colonoscopy and this might be difficult going forward, but we celina l take it 1 step at a time. The patient will be given GI and DVT prophylaxis. [id number]/[facility] #: [id number]
[2019-03-26] MEDS: ZOSYN 3.375 GM Q8H per EXTENDED INFUSION IVPB SCH ×4 (14:05→23:05)
[2019-03-26] MEDS: Nystatin SUSPENSION* 100000 UNITS/ML 5 ML UDC PO SCH ×3 (14:27→23:09)
[2019-03-26] MEDS: NS 0.9% 1000 ML** 1,000 ML IV SCH (18:25)
[2019-03-26] MEDS: KCL 20 MEQ/100 ML IVPREMIX* 20 MEQ/100 ML BAG IV SCH ×2 (18:26→20:39)
[2019-03-26] MEDS ORDERED: FLUVASTATIN PO SCH (21:00)
[2019-03-26] MEDS ORDERED: Atorvastatin* 10 MG TAB PO SCH (21:00)
[2019-03-26] MEDS ORDERED: Losartan TAB* 25 MG PO SCH (21:00)
[2019-03-27] MEDS: ZOSYN 3.375 GM Q8H per EXTENDED INFUSION IVPB SCH ×6 (04:39→21:55)
[2019-03-27] MEDS: NS 0.9% 1000 ML** 1,000 ML IV SCH ×2 (04:40→18:33)
[2019-03-27] MEDS: Clotrimazole TROCHE* 10 MG TROCHE PO SCH ×5 (06:18→22:01)
[2019-03-27] MEDS: amLODIPine TAB* 5 MG PO SCH (08:18)
[2019-03-27] MEDS: Nystatin SUSPENSION* 100000 UNITS/ML 5 ML UDC PO SCH ×4 (08:19→21:54)
[2019-03-27 08:46] LABS: ABS Lymphocytes 1.3 10^3/ul (1.0-4.8); ABS Monocytes 0.8 10^3/ul (0-0.8); ABS Neutrophils 6.1 10^3/ul (1.5-7.7); Eosinophil % 0.3 %; Hematocrit 31 % (35-47); Hemoglobin 10.4 g/dL (12.0-16.0); Lymphocyte % 16.2 %; Mean Corpuscular HGB Conc 34 g/dL (31-36); Mean Corpuscular Hemoglobin 28 pg (27-31); Mean Corpuscular Volume 83 fL (80-97); Mean Platelet Volume 7.2 fL (7.4-10.4); Platelet Count 451 10^3/uL (150-450); Red Blood Count 3.73 10^6 /uL (3.70-4.87); Red Cell Distribution Width 15 % (10-15); White Blood Count 8.2 10^3/uL (3.5-10.8)
[2019-03-27 09:05] LABS: BUN/Creatinine Ratio 8.3 (8-20); Calcium 8.5 mg/dL (8.6-10.3); EGFR African American 42.5 (>60); EGFR Non-African American 35.1 (>60); Potassium 3.8 mmol/L (3.5-5.0)
[2019-03-27] MEDS: Pantoprazole IV* 40 MG IV SCH (09:08)
--- NOTE | 2019-03-27 12:30 | PN ---
Progress Note - Progress Note Date of Service: 03/27/19 SOAP: Subjective: Patient reports that she is doing very well. She denies any pain, n/v. Reports that she is having a lot of loose stools. States that she and her family would really like to have a repeat CT scan before she leaves the hospital. Objective: Vital Signs Temp 99.5 F 03/27/19 11:27 Pulse 85 03/27/19 11:27 Resp 16 03/27/19 11:27 BP 136/72 03/27/19 11:27 Pulse Ox 98 03/27/19 11:27 Intake & Output 03/26/19 03/27/19 03/27/19 18:59 06:59 18:59 Intake Total 0 2057 Output Total 700 1200 650 Balance -700 857 -650 Intake: IV Fluids 1087 ABX - ZOSYN 107 NS (0.9%) 980 Oral 0 970 Output: Urine 700 1200 650 Other: Estimated Void Medium # Bowel Movements 3 0 Estimated Stool Amount Medium # Voids 1 Laboratory Results - last 24 hr 03/27/19 03/27/19 08:11 08:11 WBC 8.2 RBC 3.73 Hgb 10.4 L Hct 31 L MCV 83 MCH 28 MCHC 34 RDW 15 Plt Count 451 H MPV 7.2 L Neut % (Auto) 73.9 Lymph % (Auto) 16.2 Lyon % (Auto) 9.1 Eos % (Auto) 0.3 Baso % (Auto) 0.5 Absolute Neuts (auto) 6.1 Absolute Lymphs (auto) 1.3 Absolute Monos (auto) 0.8 Absolute Eos (auto) 0.0 Absolute Basos (auto) 0.0 Absolute Nucleated RBC 0.0 Nucleated RBC % 0.0 Sodium 143 Potassium 3.8 Chloride 110 Carbon Dioxide 25 Anion Gap 8 BUN 12 Creatinine 1.45 H Est GFR ( Amer) 42.5 Est GFR (Non-Af Amer) 35.1 BUN/Creatinine Ratio 8.3 Glucose 103 H Calcium 8.5 L Physical Exam: General: Sitting up in bed in NAD. HEENT: Large white patch on posterior half of tongue. CV: RRR Resp: CTAB Abd: Soft, non-distended. Positive bowel sounds. No tenderness throughout. Assessment: This is a 78 year old female with complicated diverticulitis HD #2. WBC has normalized. There are no signs of sepsis or obstruction. Plan: No emergent surgical treatment needed at this point - continue observation and conservative management. Continue clear liquid diet as tolerated. <Solange French - Last Filed: 03/27/19 12:10> - Progress Note SOAP: Plan: Agree with above assessment, Pt doing well with conservative non operative management. Tolerating Clear liquid diet. appears comfortable. WBC Improved at 8.2 (11.8) creatinine elevated at 1.45 (1.35) IV Fluids NS @ 100cc/hr Will increase rate to 125/hr, recheck labs in AM. Add Mag Phos to AM LAbs Above D/W Dr Oakes [] <Munir Olmedo - Last Filed: 03/27/19 15:24>
[2019-03-27] MEDS: Losartan TAB* 25 MG PO SCH (21:53)
[2019-03-27] MEDS: FLUVASTATIN PO SCH (22:01)
[2019-03-28] MEDS: NS 0.9% 1000 ML** 1,000 ML IV SCH ×3 (02:36→20:33)
[2019-03-28] MEDS: Clotrimazole TROCHE* 10 MG TROCHE PO SCH ×5 (04:47→22:00)
[2019-03-28] MEDS: ZOSYN 3.375 GM Q8H per EXTENDED INFUSION IVPB SCH ×2 (04:48)
[2019-03-28 06:59] LABS: BUN/Creatinine Ratio 6.3 (8-20); Calcium 7.9 mg/dL (8.6-10.3); EGFR African American 49.1 (>60); EGFR Non-African American 40.5 (>60); Magnesium 1.8 mg/dL (1.9-2.7); Phosphorus 3.2 mg/dL (2.5-5.0); Potassium 3.1 mmol/L (3.5-5.0)
[2019-03-28] MEDS: amLODIPine TAB* 5 MG PO SCH (08:47)
[2019-03-28] MEDS: Nystatin SUSPENSION* 100000 UNITS/ML 5 ML UDC PO SCH ×4 (08:51→20:30)
[2019-03-28] MEDS: Pantoprazole IV* 40 MG IV SCH (08:52)
--- NOTE | 2019-03-28 09:42 | PN ---
Progress Note - Progress Note Date of Service: 03/28/19 SOAP: Subjective:No pain,no nausea,[place] clears;passing flatus and loose stools;feeling better [] Objective: Laboratory Results - last 24 hr 03/28/19 06:15 Sodium 144 Potassium 3.1 L Chloride 112 H Carbon Dioxide 25 Anion Gap 7 BUN 8 Creatinine 1.28 H Est GFR ( Amer) 49.1 Est GFR (Non-Af Amer) 40.5 BUN/Creatinine Ratio 6.3 L Glucose 98 Calcium 7.9 L Phosphorus 3.2 Magnesium 1.8 L Vital Signs Temp 98.3 F 03/28/19 08:00 Pulse 66 03/28/19 08:00 Resp 18 03/28/19 08:00 BP 143/71 03/28/19 08:00 Pulse Ox 97 03/28/19 08:00 Intake & Output 03/27/19 03/28/19 03/28/19 18:59 06:59 18:59 Intake Total 2528 1660 Output Total 1300 1200 200 Balance 1228 460 -200 Intake: IV Fluids 2062 1080 ABX - ZOSYN 100 100 NS (0.9%) 1963 980 IVPB 105 ABX - ZOSYN 105 Oral 360 580 Output: Urine 1300 1200 200 Other: # Bowel Movements 0 abd:+bs,softly distended,nontender to deep palpation,no guarding [] Assessment:HD#3 complicated diverticulitis with local perforation,no abscess; pain free and afebrile;hypokalemia [] Plan:replete K+;try full liquids;update []
[2019-03-28] MEDS: KCL 20 MEQ/100 ML IVPREMIX* 20 MEQ/100 ML BAG IV SCH ×2 (10:01→16:02)
[2019-03-28] MEDS ORDERED: ZOSYN 3.375 GM x ONE DOSE over 30 miuntes IVPB ×2 (14:00)
[2019-03-28] MEDS ORDERED: Magnesium Sulfate 2 GM IV* 2 GM/50 ML BAG IVPB ONE (14:30)
[2019-03-28] MEDS: FLUVASTATIN PO SCH (20:29)
[2019-03-28] MEDS: Losartan TAB* 25 MG PO SCH (20:30)
[2019-03-28] MEDS: Piperacillin/Tazobac ADVAN(*) 3.375 GM in NS 0.9% 100 ML* 100 ML IVPB SCH (20:31)
[2019-03-29] MEDS: Piperacillin/Tazobac ADVAN(*) 3.375 GM in NS 0.9% 100 ML* 100 ML IVPB SCH ×2 (04:10→13:34)
[2019-03-29] MEDS: NS 0.9% 1000 ML** 1,000 ML IV SCH (04:14)
[2019-03-29 05:50] LABS: ABS Eosinophils 0.1 10^3/ul (0-0.6); ABS Lymphocytes 1.5 10^3/ul (1.0-4.8); ABS Monocytes 0.8 10^3/ul (0-0.8); ABS Neutrophils 4.8 10^3/ul (1.5-7.7); Eosinophil % 0.9 %; Hematocrit 27 % (35-47); Hemoglobin 9.1 g/dL (12.0-16.0); Lymphocyte % 20.4 %; Mean Corpuscular HGB Conc 34 g/dL (31-36); Mean Corpuscular Hemoglobin 28 pg (27-31); Mean Corpuscular Volume 81 fL (80-97); Platelet Count 362 10^3/uL (150-450); Red Cell Distribution Width 15 % (10-15); White Blood Count 7.1 10^3/uL (3.5-10.8)
[2019-03-29 06:03] LABS: Calcium 7.8 mg/dL (8.6-10.3); Potassium 3.2 mmol/L (3.5-5.0)
[2019-03-29 06:09] LABS: BUN/Creatinine Ratio 4.5 (8-20); EGFR African American 57.8 (>60); EGFR Non-African American 47.8 (>60)
[2019-03-29] MEDS: Clotrimazole TROCHE* 10 MG TROCHE PO SCH ×4 (06:14→17:29)
[2019-03-29] MEDS: amLODIPine TAB* 5 MG PO SCH (08:52)
[2019-03-29] MEDS: Nystatin SUSPENSION* 100000 UNITS/ML 5 ML UDC PO SCH ×3 (08:55→17:29)
[2019-03-29] MEDS: Pantoprazole IV* 40 MG IV SCH (08:56)
[2019-03-29] MEDS ORDERED: Potassium Chlor TAB* 20 MEQ TAB.ER PO ONE (09:40)
[2019-03-29] MEDS: KCL 20 MEQ/100 ML IVPREMIX* 20 MEQ/100 ML BAG IV SCH ×2 (10:05→13:18)
--- NOTE | 2019-03-29 12:08 | PN ---
Progress Note - Progress Note Date of Service: 03/29/19 SOAP: Subjective: Patient seen and examined. Overall, she continues to feel well. She is tolerating a full liquid diet. She has no abdominal pain. No nausea or vomiting. She continues to have loose bowel movements. These are nonbloody. Patient does complain of hemorrhoids. Objective: Temp Pulse Resp BP Pulse Ox 98.9 F 71 18 146/76 98 03/29/19 11:22 03/29/19 11:22 03/29/19 11:22 03/29/19 11:22 03/29/19 11:22 Alert and oriented 3, in no apparent distress Abdomen: Soft, nondistended, nontender. Normoactive bowel sounds. Rectal: No stool in the vault. No blood. No masses or fullness to suggest abscess. Positive enlarged external hemorrhoids. Nonbleeding. Anoscopy not performed Labs noted. Low potassium Assessment: Hospital day four, complicated diverticulitis, hemodynamically stable and improving with each day on IV antibiotics. Acute kidney injury that's improved with normalizing creatinine. Plan: I would like to send patient home with antibiotics, likely 10 days of Augmentin 875 twice a day. However, given the findings of the initial CT scan I would like patient to undergo a CAT scan today to rule out abscess. If there is a small abscess I would like her to remain on IV antibiotics, larger abscess may warrant percutaneous drainage. If there is no evidence of abscess, we will look towards discharge home with follow-up next week. We discussed the possibility of surgical intervention as we go. Certainly no surgical intervention at this time. Patient understands the plan as it was discussed with her in length. [facility] to cover me until April 01
[2019-03-29 15:29] VITALS: BP 148/70
[2019-03-29] MEDS ORDERED: Piperacillin/Tazobac ADVAN(*) 3.375 GM in NS 0.9% 100 ML* 100 ML IVPB SCH (15:30)
--- NOTE | 2019-03-29 17:31 | DS ---
Discharge Summary Surgeon: Violette LUCAS Admit Date:03/25/2019 Discharge Date: 03/29/2019 Admission DX: Diverticulitis Discharge DX:Diverticulitis, Acute Kidney Injury, Oral Candidiasis Condition at Discharge: Stable Date of D/C PEX: Temp Pulse Resp BP Pulse Ox 98.9 F 71 18 146/76 98 03/29/19 11:22 03/29/19 11:22 03/29/19 11:22 03/29/19 11:22 03/29/19 11:22 Alert and oriented 3, in no apparent distress Abdomen: Soft, nondistended, nontender. Normoactive bowel sounds. Rectal: No stool in the vault. No blood. No masses or fullness to suggest abscess. Positive enlarged external hemorrhoids. Nonbleeding. Anoscopy not performed Labs noted. Low potassium Hospital Course: Admitted with complicated diverticulitis, oral candidiasis and acute kidney injury. Treatment plan was IV Fluids, IV ABX, PO Nystatin and Chlotrimazole. Labs were checked daily, electrolytes were checked and corrected. patients condition continued to improve Creatinine continued to improve, Thrush continued to improve. CT scan was repeated on 03/29 with no abscess formation noted. Plan for Discharge home on oral Augmentin 875 BID x 10 days, Clotrimazole x 10 days, with office follow up in 1 week Laboratory Tests 03/26/19 03/26/19 03/27/19 00:02 00:02 08:11 WBC 11.8 H 8.2 Creatinine 1.35 H 03/27/19 03/28/19 03/29/19 08:11 06:15 05:37 WBC 7.1 Creatinine 1.45 H 1.28 H 03/29/19 05:37 WBC Creatinine 1.[address] Scan 03/25/2019 IMPRESSION: 1. There is wall thickening noted of the sigmoid colon with surrounding inflammatory changes and scattered diverticula, findings are concerning for acute diverticulitis. There are multiple foci of pneumoperitoneum noted adjacent to the region of bowel inflammation concerning for perforation. 2. There are large gallstones noted within a partially collapsed gallbladder. 3. If there is a stable left adnexal cyst noted measuring approximately 4.2 cm. The uterus is unremarkable. 4. There is a stable calcified lesion noted in the right adnexa measuring up to 1.[address] Scan 03/29/2019 IMPRESSION: 1. SIGMOIDAL DIVERTICULITIS WITH UNCHANGED BURDEN OF FOCAL INFLAMMATION. NO EXTRALUMINAL ORAL CONTRAST IS IDENTIFIED. A FISTULOUS APPEARING STRUCTURE DIRECTED FROM THE SIGMOID TOWARD THE LEFT ADNEXA/BLADDER IS ANNOTATED ON GABRIEL IMAGES. IT IS NOT OPACIFIED WITH CONTRAST. 2. ABNORMAL RETENTION OF CONTRAST IN THE KIDNEYS. CORRELATE FOR SIGNS OF ACUTE KIDNEY INJURY 3. CHOLELITHIASIS WITH NO INTRA OR EXTRAHEPATIC BILIARY DUCTAL DILATATION. 4. LEFT ADNEXAL CYSTIC STRUCTURE UNCHANGED FROM APRIL 2018. GIVEN THIS PATIENT' S AGE, A BASELINE PELVIC ULTRASOUND SHOULD BE OBTAINED FOR SCREENING PURPOSES. 5. RIGHT LOWER LOBE ATELECTASIS VERSUS INFILTRATE. Case discussed with Dr. Marcell Alvarez at 12:55 PM on March 29, 2019 Discharge instructions were given to the patient regarding Diet, Medications, Activity, and post operative Follow up. All Questions were answered. Discharged Home in Stable Condition on 03/29/2019
== END 2019-03-29 18:15 | disposition home or self-care (01) | DRG 392 ==
LOC: ED 21:52 → SSU 03-26 05:35 → ED 03-26 06:28
PROVIDERS: ADMIT Internal Medicine; ATTEND Surgery
DX: K57.20 Diverticulitis of large intestine with perforation and abscess without bleeding (principal); N17.9 Acute kidney failure, unspecified; B37.0 Candidal stomatitis; E78.00 Pure hypercholesterolemia, unspecified; G43.909 Migraine, unspecified, not intractable, without status migrainosus; E89.0 Postprocedural hypothyroidism; I10 Essential (primary) hypertension; E78.5 Hyperlipidemia, unspecified; K64.9 Unspecified hemorrhoids; M17.11 Unilateral primary osteoarthritis, right knee; M19.042 Primary osteoarthritis, left hand; M19.041 Primary osteoarthritis, right hand; E87.6 Hypokalemia; Z88.4 Allergy status to anesthetic agent; Z28.21 Immunization not carried out because of patient refusal
CPT/HCPCS: 36415; 74176; 74177; 80048; 80053; 81003; 81015; 83605; 83690; 83735; 84100; 85025; 86140; 87086; 93005; 99284; A9270-GY; J2405; J2543; J3475; J3480; Q9967

== ENCOUNTER 2019-04-26 11:53 | Inpatient (IN) | payer MEDICARE, BC ==
--- OUTSIDE RECORDS SUMMARY | 2019-04-26 12:06 | XMS REPORT | Continuity of Care Document ---
:1940 External Reference #:[id number] Author Name Marcell Oakes MD, FACS (transmitted by agent of provider [employer]) Address [address] [place] [address] Care Team Providers Name Role Phone Yola Chua MD - Family Care Team Information Reception Specialist [phone] Medicine Problems Active Problems Provider Date Arthroplasty of knee Syeda Nelson M.D. Onset: 12/30/2015 Localized, primary osteoarthritis Syeda Nelson M.D. Onset: 06/01/2015 Social History Type Date Description Comments Sex Unknown ETOH Use Denies alcohol use Tobacco Use Start: Unknown Patient has never smoked Recreational Drug Use Denies Drug Use Smoking Status Reviewed: 04/04/19 Patient has never smoked Exercise Type/Frequency Exercises regularly Allergies, Adverse Reactions, Alerts Description No Known Drug Allergies Medications Active Medications SIG Qnty Indications Ordering Provider Date Ibuprofen 1 by mouth three 90tabs Z47.1 Syeda Nelson, 01/08/2016 800mg Tablets times a day as M.D. needed Fluvastatin Sodium Yola Chua, 40mg MD Capsules Losartan Potassium Yola Chua, 100mg MD Tablets Augmentin one by mouth Unknown 875-125mg every 12 hours Tablets for ten days Multivitamin Adult 1 by mouth every Unknown day Tablets Aspirin 81 1 by mouth every Unknown 81mg Tablets day DR Fish Oil 1 tab by mouth Unknown 1000mg Capsules every morning Coq10 1 by mouth once Unknown 100mg Capsules a day Vitamin C 1 by mouth every Unknown 1000mg Tablets day Medications Administered in Office Medication SIG Qnty Indications Ordering Provider Date Synvisc Or Synvisc-One Injection 1 Syeda Nelson M.D. 06/26/2015 MG Injection Synvisc Or Synvisc-One Injection 1 Syeda Nelson M.D. 06/19/2015 MG Injection Synvisc Or Synvisc-One Injection 1 Syeda Nelson M.D. 06/08/2015 MG Injection Immunizations Description No Information Available Vital Signs Date Vital Result Comment 04/04/2019 11:41am Height 59.5 inches 4'11.50" Weight 130.00 lb Heart Rate 84 /min BP Systolic 130 mmHg BP Diastolic 68 mmHg Respiratory Rate 16 /min Body Temperature 100.4 F BMI (Body Mass Index) 25.8 kg/m2 04/01/2016 8:44am Height 60 inches 5'0" Weight 141.00 lb Heart Rate 82 /min Respiratory Rate 17 /min Body Temperature 98.3 F Pain Level 0 BMI (Body Mass Index) 27.5 kg/m2 Results Test Acquired Date Facility Test Result H/L Range Note CBC Auto 04/04/2019 [facility] White Blood 8.8 10^3/uL Normal 3.5-10.[address] Count [place], [place] [id number] [phone] Red Blood Count 3.67 10^6/uL Low 3.70-4.87 Hemoglobin 10.2 g/dL Low 12.0-16.0 Hematocrit 30 % Low 35-47 Mean Corpuscular Volume 81 fL Normal 80-97 Mean Corpuscular Hemoglobin 28 pg Normal 27-31 Mean Corpuscular HGB Conc 34 g/dL Normal 31-36 Red Cell Distribution Width 16 % High 10-15 Platelet Count 465 10^3/uL High 150-450 Mean Platelet Volume 7.3 fL Low 7.4-10.4 Abs Neutrophils 6.1 10^3/uL Normal 1.5-7.7 Abs Lymphocytes 1.7 10^3/uL Normal 1.0-4.8 Abs Monocytes 0.9 10^3/uL High 0-0.8 Abs Eosinophils 0.1 10^3/uL Normal 0-0.6 Abs Basophils 0.0 10^3/uL Normal 0-0.2 Abs Nucleated RBC 0.0 10^3/uL Granulocyte % 69.7 % Lymphocyte % 19.4 % Monocyte % 9.7 % Eosinophil % 0.7 % Basophil % 0.5 % Nucleated Red Blood Cells % 0.0 Basic Metabolic 04/04/2019 [facility] Sodium 141 mmol/L Normal 135-145 Panel [address] [place] [address] [phone] Potassium 4.0 mmol/L Normal 3.5-5.0 Chloride 104 mmol/L Normal 101-111 Co2 Carbon Dioxide 29 mmol/L Normal 22-32 Anion Gap 8 mmol/L Normal 2-11 Glucose 118 mg/dL High 70-100 Blood Urea Nitrogen 7 mg/dL Normal 6-24 Creatinine 0.82 mg/dL Normal 0.51-0.95 BUN/Creatinine Ratio 8.5 Normal 8-20 Calcium 9.1 mg/dL Normal 8.6-10.3 Egfr Non- 67.8 >60 Egfr 82.0 >60 1 Laboratory test 04/04/2019 [facility] Phosphorus 2.8 mg/dL Normal 2.5-5.0 finding [address] [place] [address] [phone] Magnesium 1.9 mg/dL Normal 1.9-2.7 1 Because ethnic data is not always readily available, this report includes an eGFR for both -Americans and non- Americans. The National Kidney Disease Education Program (NKDEP) does not endorse the use of the MDRD equation for patients that are not between the ages of 18 and 70, are , have extremes of body size, muscle mass, or nutritional status, or are non- or non-. According to the National Kidney Foundation, irrespective of diagnosis, the stage of the disease is based on the level of kidney function: Stage Description GFR(mL/min/1.73 m(2)) 1 Kidney damage with normal or decreased GFR 90 2 Kidney damage with mild decrease in GFR 60-89 3 Moderate decrease in GFR 30-59 4 Severe decrease in GFR 15-29 5 Kidney failure <15 (or dialysis) Procedures Description No Information Available Medical Devices Description No Information Available Encounters Type Date Location Provider Dx Diagnosis Office Visit 03/29/2019 Surgical Rey K57.20 Dvtrcli of lg int w 7:[facility]a [facility]C perforation and abscess w/o bleeding N17.9 Acute kidney failure, unspecified B37.0 Candidal stomatitis Office Visit 03/28/2019 Surgical Hillary Meredith K57.20 Dvtrcli of lg int 7:00a [facility] MARINA Tarango w perforation and Collar Stay Fuser Tender abscess w/o bleeding Office Visit 03/27/2019 Surgical Marcell Oakes, K57.20 Dvtrcli of lg int 7:00a [facility] w perforation and Collar Stay Fuser Tender abscess w/o bleeding Office Visit 03/26/2019 Surgical Marcell Oakes, K57.20 Dvtrcli of lg int 7:00a [facility] w perforation and Collar Stay Fuser Tender abscess w/o bleeding Assessments Date Code Description Provider 03/29/2019 K57.20 Diverticulitis of large intestine with Munir Olmedo PA-C perforation and abscess without bleeding 03/29/2019 N17.9 Acute kidney failure, unspecified Munir Olmedo PA-C 03/29/2019 B37.0 Candidal stomatitis Munir Olmedo PA-C 03/28/2019 K57.20 Diverticulitis of large intestine with Hillary Tarango NP perforation and abscess without bleeding 03/27/2019 K57.20 Diverticulitis of large intestine with Marcell Oakes MD , KAMRAN perforation and abscess without bleeding 03/26/2019 K57.20 Diverticulitis of large intestine with Marcell Oakes MD , FACS perforation and abscess without bleeding Plan of Treatment Future Appointment(s):04/08/2019 11:30 am - Marcell Oakes MD, FACS at [facility] Functional Status Description No Information Available Mental Status Description No Information Available Referrals Description No Information Available
--- OUTSIDE RECORDS SUMMARY | 2019-04-26 12:06 | XMS REPORT | Continuity of Care Document ---
:1940 External Reference #:[id number] Author Name Marcell Oakes MD, FACS (transmitted by agent of provider Wally Cazares) Address [address] [place] [address] Care Team Providers Name Role Phone Yola Chua MD - Family Care Team Information Ski Patrol Director [phone] Medicine Problems Active Problems Provider Date Arthroplasty of knee Syeda Nelson M.D. Onset: 12/30/2015 Localized, primary osteoarthritis Syeda Nelson M.D. Onset: 06/01/2015 Social History Type Date Description Comments Sex Unknown ETOH Use Denies alcohol use Tobacco Use Start: Unknown Patient has never smoked Recreational Drug Use Denies Drug Use Smoking Status Reviewed: 04/08/19 Patient has never smoked Exercise Type/Frequency Exercises regularly Allergies, Adverse Reactions, Alerts Description No Known Drug Allergies Medications Active Medications SIG Qnty Indications Ordering Provider Date Fluvastatin Sodium 1 tab by mouth Yola Chua, 40mg daily MD Capsules Losartan Potassium 1 tab by mouth Yola Chua, 100mg daily MD Tablets Multivitamin Adult 1 by mouth every Unknown day Tablets Aspirin 81 1 by mouth every Unknown 81mg Tablets day DR Fish Oil 1 tab by mouth Unknown 1000mg Capsules every morning Coq10 1 by mouth once a Unknown 100mg Capsules day Vitamin C 1 by mouth every Unknown 1000mg Tablets day Tylenol 2 by mouth every Unknown 325mg Tablets 6 hours as needed pain Medications Administered in Office Medication SIG Qnty Indications Ordering Provider Date Synvisc Or Synvisc-One Injection 1 Syeda Nelson M.D. 06/26/2015 MG Injection Synvisc Or Synvisc-One Injection 1 Syeda Nelson M.D. 06/19/2015 MG Injection Synvisc Or Synvisc-One Injection 1 Syeda Nelson M.D. 06/08/2015 MG Injection Immunizations Description No Information Available Vital Signs Date Vital Result Comment 04/08/2019 11:08am Heart Rate 72 /min BP Systolic Sitting 124 mmHg BP Diastolic Sitting 72 mmHg Respiratory Rate 16 /min Body Temperature 97.1 F 04/04/2019 11:41am Height 59.5 inches 4'11.50" Weight 130.00 lb Heart Rate 84 /min BP Systolic 130 mmHg BP Diastolic 68 mmHg Respiratory Rate 16 /min Body Temperature 100.4 F BMI (Body Mass Index) 25.8 kg/m2 Results Test Acquired Date Facility Test Result H/L Range Note CBC Auto 04/04/2019 [facility] White Blood 8.8 10^3/uL Normal 3.5-10.[address] [place] [address] [phone] Red Blood Count 3.67 10^6/uL Low 3.70-4.87 [...] Blood Cells % 0.0 Basic Metabolic 04/04/2019 [facility] Sodium 141 mmol/L Normal 135-[address] [place] [address] [phone] Potassium 4.0 mmol/L Normal 3.5-5.0 Chloride 104 mmol/L Normal 101-111 Co2 Carbon Dioxide 29 mmol/L Normal 22-32 Anion Gap 8 mmol/L Normal 2-11 Glucose 118 mg/dL High 70-100 Blood Urea Nitrogen 7 mg/dL Normal 6-24 Creatinine 0.82 mg/dL Normal 0.51-0.95 BUN/Creatinine Ratio 8.5 Normal 8-20 Calcium 9.1 mg/dL Normal 8.6-10.3 Egfr Non- 67.8 >60 Egfr 82.0 >60 1 Laboratory test 04/04/2019 [facility] Phosphorus 2.8 mg/dL Normal 2.5-5.0 finding [address] [place] [address] [phone] Magnesium 1.9 mg/dL Normal 1.9-2.7 1 Because [...] Date Location Provider Dx Diagnosis Office Visit 04/08/2019 Surgical Marcell Oakes, K57.20 Dvtrcli of lg int w 11:30a [facility] FACS perforation and abscess w/o bleeding N17.9 Acute kidney failure, unspecified N28.89 Other specified disorders of kidney and ureter Office Visit 03/29/2019 7:00a Surgical Munir Keane K57.20 Dvtrcli of lg int [facility] Activities Leader Shara, PA-C w perforation and abscess w/o bleeding N17.9 Acute kidney failure, unspecified B37.0 Candidal stomatitis Office Visit 03/28/2019 Surgical Hillary Meredith K57.20 Dvtrcli of lg int 7:00a [facility] Sukhdeep TRACK SERVICE PERSON w perforation and Activities Leader abscess w/o bleeding Office Visit 03/27/2019 Surgical Marcell Oakes, K57.20 Dvtrcli of lg int 7:00a [facility] w perforation and Activities Leader abscess w/o bleeding Office Visit 03/26/2019 Surgical Marcell Oakes, K57.20 Dvtrcli of lg int 7:00a [facility] w perforation and Activities Leader abscess w/o bleeding Assessments Date Code Description Provider 04/08/2019 K57.20 Diverticulitis of large intestine with Marcell Oakes MD , FACS perforation and abscess without bleeding 04/08/2019 N17.9 Acute kidney failure, unspecified Marcell Oakes MD, FACS 04/08/2019 N28.89 Other specified disorders of kidney and Marcell Oakes MD , FACS ureter 04/04/2019 K57.20 Diverticulitis of large intestine with Marcell Oakes MD , FACS perforation and abscess without bleeding 04/04/2019 N17.9 Acute kidney failure, unspecified Marcell Oakes MD, FACS 03/29/2019 K57.20 Diverticulitis of large intestine with Munir Olmedo PA-C perforation and abscess without bleeding 03/29/2019 N17.9 Acute kidney failure, unspecified Munir Olmedo PA-C 03/29/2019 B37.0 Candidal stomatitis Munir Olmedo PA-C 03/28/2019 K57.20 Diverticulitis of large intestine with Hillary Tarango, TRACK SERVICE PERSON perforation and abscess without bleeding 03/27/2019 K57.20 Diverticulitis of large intestine with Marcell Oakes MD , FACS perforation and abscess without bleeding 03/26/2019 K57.20 Diverticulitis of large intestine with Marcell Oakes MD , FACS perforation and abscess without bleeding Plan of Treatment Future Appointment(s):04/22/2019 11:00 am - Marcell Oakes MD, [facility] at [facility]04/08/2019 - Marcell Oakes MD, [id number] Diverticulitis of large intestine with perforation and abscess without bleedingFollow up:2 weeksInstructions:Low fiber diet until stools are normalized with 12 weeks from now, which ever is first No additional [id number] Acute kidney failure, [id number] Other specified disorders of kidney and ureterReferral:Myron Hanson MD, Urology Functional Status Description No Information Available Mental Status Description No Information Available Referrals Refer to Reason for Referral Status Appt Date Myron Hanson MD Recent hospitalization for complicated Created diverticulitis. During admission, repeat CT scan with no IV contrast showed persistent IV contrast over 72 hours still in the kidneys. Nephrology was consulted and considered possibility of UVJ pathology. additionally, patient likely will undergo sigmoid colectomy, and I would like her to undergo ureteral stents prior to intervention. [address] [place] [address] [place] [address] [phone]
--- OUTSIDE RECORDS SUMMARY | 2019-04-26 12:06 | XMS REPORT | Continuity of Care Document ---
:1940 External Reference #:[id number] Author Name Yola Chua M.D. Address [address] [place] [address] Care Team Providers Name Role Phone Julian Aguilar - Surgery Care Team Information Rail Washer [phone] Sergio Mcneill MD - Surgery Care Team Information Rail Washer [phone] Bhavya Hawkins - Pediatric Care Team Information Rail Washer [phone] Dermatology Problems Active Problems Provider Date Pure hypercholesterolemia Yola Chua M.D. Onset: 08/17/2010 Disorder of thyroid gland Yola Chua M.D. Onset: 08/17/2010 Essential hypertension Yola Chua M.D. Onset: 08/17/2010 Social History Type Date Description Comments Sex Unknown Tobacco Use Start: Unknown Never Smoked Cigarettes Allergies, Adverse Reactions, Alerts Active Allergies Reaction Severity Comments Date Anesthetic Severe Vomiting Reaction To Anesthetic 07/25/2007 Medications Active Medications SIG Qnty Indications Ordering Date Provider Nystatin 5 milliliters swish 120ml B37.0 Yola Saucedo 04/15/2019 and swallow four Blegen, M.D. [id number]/ML times a day x 5-7 Suspension days for thrush Vitamin D3 Decrease To 1 by Yola Saucedo 02/15/2016 1000Unit mouth every day for Blegen, M.D. Tablets vit d deficiency Co Q10 1 by mouth every Yola Saucedo 02/10/2014 100mg Capsules day Blegen, M.D. Fish Oil 1 by mouth every Yola Saucedo 02/10/2014 1000mg day Blegen, M.D. Capsules Fluvastatin Sodium Take 1 Capsule By caps Yola Saucedo 02/10/2014 Mouth AT Bedtime Harshil MJaneDJane 40mg Capsules Aspirin 1 po qd Yola Saucedo 03/07/2012 81mg Tablets Harshil M.D. Losartan Potassium take 1 tablet by 90tabs I10 Yola PJane 12/19/2011 mouth once daily Blegen M.D. 100mg Tablets Centrum Performance one po qd Yola PJane 10/17/2011 Harshil M.DJane Tablets Vitamin C (luke-c) one po qd Yola PJane 10/17/2011 500mg Harshil M.D. Chewtabs Amoxicillin/Clavulan Unknown ate Potassium 875-125mg Tablets Clotrimazole dissolve lozenge in 50units Yola Saucedo 10mg mouth 5 times per Leonardo Chua Lozenges day for 7-10 days History Medications Metronidazole take 1 tablet by 30tabs K57.32 Gurvinder 03/20/2019 - 500mg mouth 3 times per MD Rosie 04/03/2019 Tablets day for 10 days for diverticulitis Cipro 1 tab by mouth twice 20tabs K57.32 Gurvinder 03/20/2019 - 500mg Tablets a day MD Rosie 04/03/2019 Amoxicillin 4 by mouth x 1 dose 8tabs Yola Saucedo 03/04/2019 - 500mg 1 hour prior to Leonardo Chua 04/03/2019 Tablets dental procedure as directed Immunizations CPT Code Status Date Vaccine Lot # [id number] Given 12/20/2018 [place] [id number] Given 12/20/2018 [place] [address] Given 12/11/2017 [place] [address] Given 02/16/2017 Tdap (Adacel) [id number] 66838 Given 12/14/2016 Influenza Vaccine High Dose PF [id number] 16989 Given 11/24/2015 Influenza Vaccine High Dose PF [id number] 14406 Given 01/19/2015 [place] [address] Given 02/10/2014 Prevnar-13 Pneumococcal Conjugate Vaccine [id number] 53048 Given 12/19/2012 Influenza Vaccine-Preservative Free 3 Yrs And Above 22135 Given 02/17/2009 H1N1 Influenza Vaccine 90075 Given 11/28/2007 Pneumovax 23 (PPSV23) 65+ years or high risk 2 to 64 year old 08785 Given 07/25/2007 Zoster Vaccine [id number] 28585 Given 07/25/2007 Tdap (Adacel) [id number] 60379 Given 01/30/2003 Influenza Virus Vaccine, 3 Yrs And Above 15290 Given 07/10/1996 DT (Adult) Vital Signs Date Vital Result Comment 04/15/2019 1:35pm Weight 137.00 lb Weight 62.143 kg BP Systolic 128 mmHg BP Diastolic 74 mmHg Heart Rate 74 /min Body Temperature 98.4 F Respiratory Rate 16 /min O2 % BldC Oximetry 98 % 04/03/2019 11:28am Weight 132.38 lb Weight 60.045 kg BP Systolic 132 mmHg BP Diastolic 80 mmHg Heart Rate 88 /min Body Temperature 100.8 F tympanic Respiratory Rate 16 /min O2 % BldC Oximetry 97 % Results Test Acquired Date Facility Test Result H/L Range Note Urine DIP 04/03/2019 In House Lab Leukocytes NEG Neg (607)- - Urine Nitrites NEG Neg Urobilinogen NORM Norm Total Protein Urine NEG Neg Urine pH 7.5 High 5-6 Urine Blood 1+ High Neg Specific Babbitt 1.005 Low 1.01-1.02 Urine Ketones NEG Neg Urine Bilirubin NEG Neg Urine Glucose NORM Norm CBC Auto 03/26/2019 [facility] White Blood 11.8 10^3/ uL High 3.5-10.8 Diff [phone] Count Red Blood Count 4.21 10^6/uL Normal 3.70-4.87 Hemoglobin 11.6 g/dL Low 12.0-16.0 Hematocrit 34 % Low 35-47 Mean Corpuscular Volume 82 fL Normal 80-97 Mean Corpuscular Hemoglobin 28 pg Normal 27-31 Mean Corpuscular HGB Conc 34 g/dL Normal 31-36 Red Cell Distribution Width 16 % High 10-15 Platelet Count 472 10^3/uL High 150-450 Mean Platelet Volume 6.9 fL Low 7.4-10.4 Abs Neutrophils 9.8 10^3/uL High 1.5-7.7 Abs Lymphocytes 1.1 10^3/uL Normal 1.0-4.8 Abs Monocytes 0.9 10^3/uL High 0-0.8 Abs Eosinophils 0.0 10^3/uL Normal 0-0.6 Abs Basophils 0.1 10^3/uL Normal 0-0.2 Abs Nucleated RBC 0.0 10^3/uL Granulocyte % 82.4 % Lymphocyte % 9.5 % Monocyte % 7.5 % Eosinophil % 0.1 % Basophil % 0.5 % Nucleated Red Blood Cells % 0.0 Laboratory test 03/26/2019 [facility] Lactic Acid 0.5 mmol/L Normal 0.5-2.0 1 finding [phone] Comp Metabolic 03/26/2019 [facility] Sodium 136 mmol/ L Normal 135-145 Panel [phone] Potassium 3.4 mmol/L Low 3.5-5.0 Chloride 101 mmol/L Normal 101-111 Co2 Carbon Dioxide 26 mmol/L Normal 22-32 Anion Gap 9 mmol/L Normal 2-11 Glucose 122 mg/dL High 70-100 Blood Urea Nitrogen 14 mg/dL Normal 6-24 Creatinine 1.35 mg/dL High 0.51-0.95 BUN/Creatinine Ratio 10.4 Normal 8-20 Calcium 9.4 mg/dL Normal 8.6-10.3 Total Protein 7.3 g/dL Normal 6.4-8.9 Albumin 3.8 g/dL Normal 3.2-5.2 Globulin 3.5 g/dL Normal 2-4 Albumin/Globulin Ratio 1.1 Normal 1-3 Total Bilirubin 0.50 mg/dL Normal 0.2-1.0 Alkaline Phosphatase 85 U/L Normal 34-104 Alt 18 U/L Normal 7-52 Ast 15 U/L Normal 13-39 Egfr Non- 38.1 >60 Egfr 46.1 >60 2 Laboratory test 03/26/2019 [facility] Lipase 19 U/L Normal 11.0-82.0 finding [phone] C Reactive Protein 91.27 mg/L High <8.01 Urinalysis Profile 03/26/2019 [facility] Urine Color Yellow [phone] Urine Appearance Clear Urine Specific Babbitt 1.009 Low 1.010-1.030 Urine pH 5.0 Normal 5-9 Urine Urobilinogen Negative Negative Urine Ketones Trace Abnormal Negative Urine Protein Negative Negative Urine Leukocytes 3+ Abnormal Negative Urine Blood Negative Negative Urine Nitrite Negative Negative Urine Bilirubin Negative Negative Urine Glucose Negative Negative Urine White Blood Cell 3+(>20/hpf) Abnormal Absent Urine Red Blood Cell 2+(6-10/hpf) Abnormal Absent Urine Bacteria 1+ Abnormal Absent Urine Squamous Epithelial Cell Present Abnormal Absent Laboratory test 03/26/2019 [facility] Magnesium 2.0 mg/dL Normal 1.9-2.7 finding [phone] Urine Culture And 03/26/2019 [facility] Urine Culture SEE 3 Sensitivities [phone] RESULT BELOW Lipid Profile 03/04/2019 [facility] Triglycerides 101 mg/dL 4 (Trig/Chol/HDL) [phone] Cholesterol 190 mg/dL 5 HDL Cholesterol 50.3 mg/dL 6 LDL Cholesterol 120 mg/dL 7 Laboratory test 03/04/2019 [facility] Hemoglobin A1c 5.6 % Normal 4.0-5.6 8 finding [phone] (Glyco HGB) TSH (Thyroid Stim Horm) 1.25 mcIU/mL Normal 0.34-5.60 9 Free T4 (Free Thyroxine) 1.02 ng/dL Normal 0.61-1.12 10 Vitamin D Total 25(Oh) 40.3 ng/mL Normal 20-50 11 Comp Metabolic 02/18/2019 [facility] Sodium 140 mmol/ L Normal 135-145 Panel [phone] Potassium 4.4 mmol/L Normal 3.5-5.0 Chloride 104 mmol/L Normal 101-111 Co2 Carbon Dioxide 29 mmol/L Normal 22-32 Anion Gap 7 mmol/L Normal 2-11 Glucose 89 mg/dL Normal 70-100 Blood Urea Nitrogen 18 mg/dL Normal 6-24 Creatinine 0.70 mg/dL Normal 0.51-0.95 BUN/Creatinine Ratio 25.7 High 8-20 Calcium 9.4 mg/dL Normal 8.6-10.3 Total Protein 6.9 g/dL Normal 6.4-8.9 Albumin 4.1 g/dL Normal 3.2-5.2 Globulin 2.8 g/dL Normal 2-4 Albumin/Globulin Ratio 1.5 Normal 1-3 Total Bilirubin 0.40 mg/dL Normal 0.2-1.0 Alkaline Phosphatase 86 U/L Normal 34-104 Alt 16 U/L Normal 7-52 Ast 19 U/L Normal 13-39 Egfr Non- 81.4 >60 Egfr 98.4 >60 12 CBC Auto 02/18/2019 [facility] White Blood 6.5 10^3/ uL Normal 3.5-10.8 Diff [phone] Count Red Blood Count 4.30 10^6/uL Normal 3.70-4.87 Hemoglobin 12.1 g/dL Normal 12.0-16.0 Hematocrit 36 % Normal 35-47 Mean Corpuscular Volume 84 fL Normal 80-97 Mean Corpuscular Hemoglobin 28 pg Normal 27-31 Mean Corpuscular HGB Conc 33 g/dL Normal 31-36 Red Cell Distribution Width 15 % Normal 10-15 Platelet Count 416 10^3/uL Normal 150-450 Mean Platelet Volume 7.1 fL Low 7.4-10.4 Abs Neutrophils 3.5 10^3/uL Normal 1.5-7.7 Abs Lymphocytes 2.4 10^3/uL Normal 1.0-4.8 Abs Monocytes 0.5 10^3/uL Normal 0-0.8 Abs Eosinophils 0.1 10^3/uL Normal 0-0.6 Abs Basophils 0.0 10^3/uL Normal 0-0.2 Abs Nucleated RBC 0.0 10^3/uL Granulocyte % 53.8 % Lymphocyte % 36.7 % Monocyte % 7.2 % Eosinophil % 1.7 % Basophil % 0.6 % Nucleated Red Blood Cells % 0.0 Protein 02/18/2019 [facility] Total 6.8 g/dL 6.3 - Electrophoresis [phone] Protein(Pep) 7.9 Albumin 3.2 g/dL Abnormal 3.4-4.7 Alpha-1 Globulin 0.3 g/dL 0.1-0.3 Alpha-2 Globulin 1.2 g/dL Abnormal 0.6-1.0 Beta Globulin 1.1 g/dL 0.7-1.2 Gamma Globulin 0.9 g/dL 0.6-1.6 Albumin/Globulin Ratio 0.86 Impression See Comment 13 Pthi 02/18/2019 [facility] Calcium (PTH 9.2 mg/dL Normal 8.6-10.3 [phone] Intact) PTH Intact 38.5 pg/mL Normal 12-88 Laboratory test 02/18/2019 [facility] Bone Alkaline 12 g/L 14 razkvym [phone] Phosphatase, S Osteocalcin 24 ng/mL 9 - 42 15 N-Telopeptide, Serum 11.8 nMBCE 16 1 [facility] Severe Sepsis and Septic Shock Management Bundle Measure requires all lactic acids initially measuring >2.0 mmol/L be repeated. 2 Because ethnic data is not always readily [...] 15-29 5 Kidney failure <15 (or dialysis) 3 SEE RESULT BELOW Name: MARYCRUZ MCADAMS : [address]: Marcell Oakes MD Acct: [id number] Unit: [id number] AGE: 78 Location: [place] [address] Re03/26/19 SEX: F Status: ADM IN SPEC: [id number] OLENA: 03/25/19-[address]: Sergio Harris MD REQ: [id number] RECD: 03/26/190110 STATUS: COMP OTHR DR: [facility] Yola Chua MD _ SOURCE: URINE SPDESC: ORDERED: Urine Culture Procedure Result Reported Site Urine Culture Final 03/27/19- 0918 ML No Growth (<1,000 CFU/mL) * ML - Main Lab . END OF REPORT DEPARTMENT OF PATHOLOGY, [address] [place] [address] Josesito Willson M.D. Director [facility] # [id number] 4 Desirable: <150 Borderline High: 150-199 High: 200-499 Very High: >500 5 Desirable: <200 Borderline High: 200-239 High: >239 6 Low: <40 Desirable: 40-60 High: >60 7 Desirable: <100 Near Optimal: 100-129 Borderline High: 130-159 High: 160-189 Very High: >189 8 Therapeutic target for the treatment of diabetes mellitus patients is <7% HBA1C, and in selective patients <6.0%. Please refer to [place] [employer] diabetic care guidelines for further information. 9 FASTING [id number] 10 FASTING [id number] 11 Total 25-Hydroxyvitamin D2 and D3 (25-OH-VitD) <10 ng/mL (severe deficiency) 10-19 ng/mL (mild to moderate deficiency) 20-50 ng/mL (optimum levels) 51-80 ng/mL (increased risk of hypercalciuria) >80 ng/mL (toxicity possible) 12 Because ethnic data is not always readily [...] 15-29 5 Kidney failure <15 (or dialysis) 13 RESULT: No apparent monoclonal protein on serum electrophoresis. Test Performed by: [place] [address] [employer] Supervisor: Chencho Welch M.D. Ph.D.; CLIA# [id number] 14 REFERENCE VALUE <=14 (Premenopausal) <=22 (Postmenopausal) Test Performed by: [place] [address] [employer] Supervisor: Chencho Welch M.D. Ph.D.; CLIA# [id number] 15 Test Performed by: [place] [address] [employer] Supervisor: Chencho Welch M.D. Ph.D.; CLIA# [id number] 16 REFERENCE VALUE Premenopausal Females: 6.2-19.0 nM BCE The target value for post-menopausal adult females undergoing treatment for osteoporosis is the same as the premenopausal reference interval. BCE= Bone Collagen Equivalents Test Performed by: [facility] [address] [place] [address] [employer] Supervisor: Chencho Welch M.D. Ph.D.; [facility]# [id number] Procedures Date Code Description Status 11/05/2018 29080 EKG, at Least 12 Leads w/Interpretation and Report Completed 12/29/2011 81664725 Colonoscopy Completed Medical Devices Description No Information Available Encounters Type Date Location Provider Dx Diagnosis Office Visit 04/03/2019 Main Office Yola Saucedo K57.20 Dvtrcli of lg int w 11:45a Alireza Chua. perforation and abscess w/o bleeding Office Visit 03/20/2019 Main Office Gurvinder K57.32 Dvtrcli of lg int 5:00p MD Rosie w/o perforation or abscess w/o bleeding Office Visit 03/04/2019 [facility] Yola Saucedo Z00.00 Encntr for general 9:30a Leonardo Chua adult medical exam w/o abnormal findings I10 Essential (primary) hypertension E78.00 Pure hypercholesterolemia, unspecified E07.89 Other specified disorders of thyroid E55.9 Vitamin D deficiency, unspecified M85.80 Oth disrd of bone density and structure, unspecified site Z12.31 Encntr screen mammogram for malignant neoplasm of breast M19.049 Primary osteoarthritis, unspecified hand E66.3 Overweight Office Visit 11/08/2018 12:15p Main Office Yola Saucedo R07.9 Chest pain, Blegen M.D. unspecified I10 Essential (primary) hypertension E78.00 Pure hypercholesterolemia, unspecified Office Visit 11/05/2018 3:30p Main Office Kassandra Rhodes7.9 Chest pain, M.D., R.D. unspecified Assessments Date Code Description Provider 04/15/2019 K57.20 Diverticulitis of large intestine with Yola Chua M.D. perforation and abscess without bleeding 04/15/2019 B37.0 Candidal stomatitis Yola Chua M.D. 04/15/2019 R19.7 Diarrhea, unspecified Yola Chua M.D. 04/03/2019 K57.20 Diverticulitis of large intestine with Yola Chua M.D. perforation and abscess without bleeding 03/20/2019 K57.32 Diverticulitis of large intestine Gurvinder Velez MD without perforation or abscess without bleeding 03/04/2019 Z00.00 Encounter for general adult medical Yola Chua M.D. examination without abnormal findings 03/04/2019 I10 Essential (primary) hypertension Yola Chua M.D. 03/04/2019 E78.00 Pure hypercholesterolemia, unspecified Yola Chua M.D. 03/04/2019 E07.89 Other specified disorders of thyroid Yola Chua M.D. 03/04/2019 E55.9 Vitamin D deficiency, álvaro Chua M.D. 03/04/2019 M85.80 Other specified disorders of bone Yola Chua M.D. density and structure, uns 03/04/2019 Z12.31 Encounter for screening mammogram for Yola Chua M.D. malignant neoplasm of 03/04/2019 M19.049 Primary osteoarthritis, ahmetified Yola Chua M.D. hand 03/04/2019 E66.3 Overweight Yola Chua M.D. 11/08/2018 R07.9 Chest pain, unspecified Yola Chua M.D. 11/08/2018 I10 Essential (primary) hypertension Yola Chua M.D. 11/08/2018 E78.00 Pure hypercholesterolemia, unspecified oYla Chua M.D. 11/05/2018 R07.9 Chest pain, unspecified Shannan Pena M.D., R.D. Plan of Treatment 04/15/2019 - Yola Chua M.D.K57.20 Diverticulitis of large intestine with perforation and abscess without bleedingComments:APPRECIATE DR. OAKES'S CARE. PT IS IMPROVING, STILL CAN GET TIRED BUT GETTING BACK TO HER BASELINE. NO FURTHER FEVERS OR ELEVATED TEMPS. WAS HAVING SWEATING AT NIGHT, WHICH MAY HAVE REPRESENTED FEVER BUT NOT FOR PAST NIGHT. ADVISED TO NOTIFY IF THAT RECURS AGAIN AND WOULD REPEAT CBC, CMP, CRP AND CONSIDER REPEAT CT ABD/ PELVIS. PLAN IS TO HAVE PARTIAL COLON RESECTION OF AFFECTED AREA AT 12 WEEKS. PT HAS BEEN TO [facility] IN [place] IN PAST FOR HEMORRHOID CARE AND WE DISCUSSED SEEING THEMFOR CONSULT WELL. PT WILL BRING CD OF HER CT SCANS TO THEM FOR REVIEW WELL. PT IS FOLLOWING WITH DR. RODRIGUEZ FOR UROLOGY GIVEN ACUTE KIDNEY INJURY DURING HOSPITALIZATION FOR THIS, HE WILL BE DOING CYSTOSCOPY IN 2 DAYS TO EVALUATE BLADDER/ URETERS. CREATININE WAS BACK TO HER NORMAL BASELINE.Follow up:REFER TO DR. DE LA FUENTE, [facility]- FOR CONSULT ON COMPLICATED DIVERTICULITISRecommendations:-- I'M GLAD YOU ARE DOING BETTER- YOU SHOULD CONTINUE TO IMPROVE -- NOTIFY IF NIGHT SWEATS AGAIN, FEVER OR DISCOMFORT -- WE WILL HAVE YOU GET AN OPINION FROM THE [facility] IN [place]- I WILL DO THE REFERRAL. YOU SHOULD HEAR FROM OUR OFFICE BY NEXT WEEK ABOUT THE REFERRAL- PLEASE CALL US MONDAY IF YOU DON'T HEAR FROM US -- CALL [facility] (MAIN NUMBER [phone]) TO ASK TO GET A CD OF YOUR CT SCANS TO [employer] AND BRING TO [place] FOR YOUR CONSULT -- CONTINUE ON YOU LOW RESIDUE / LOW FIBER DIET -- FOLLOW-UP WITH DR. RODRIGUEZ [id number] Candidal stomatitisNew Medication:Nystatin 243137 Unit/ML - 5 milliliters swish and swallow four times a day x 5-7 days for thrushComments:THRUSH IS RESOLVING, WHITE COATING IS RESOLVED, STILL ERYTHEMA AND INFLAMMATORY TONGUE CHANGES BUT LOOKS LIKE ALMOST RESOLVING. PT TOLD BY HER PHARMACIST WHEN PICKED UP CLOTRIMAZOLE LOZENGES THAT IT CAN CAUSE DIARRHEA. IT DOES NOT LIST THAT COMMON SIDE EFFECT ON EPOCRATES BUT DISCUSSED CAN CONSIDER TRYING NYSTATIN SWISH AND SWALLOW INSTEAD. PT WILL BE PICKING UP MEDS AT [facility]- SPOKE WITH PHARMACIST THERE AND SHE SAID NYSTATIN SS 2-10% LISTED RISK DIARRHEA, CLOTRIMAZOLE INSERT LISTS "MILD" RISK BUT DOES NOT GIVE PERCENTAGES. PT WILL TRY OFF CLOTRIMAZOLE AND TRY NYSTATIN S/S INSTEAD.Follow up: .Recommendations:-- IN CASE THE CLOTRIMAZOLE IS CAUSING YOUR DIARRHEA, STOP USING THAT AND USE THE NYSTATIN SWISH ANDSWALLOW- 5 ML SWISH IN MOUTH AND THEN SWALLOW- 4 TIMES PER DAY FOR AT LEAST 3 MORE DAYS, UP TO 5 MORE DAYS, UNTIL YOUR THRUSH SYMPTOMS RESOLVE -- LET ME KNOW IF YOUR THRUSH DOES NOT BSABNQMR74.7 Diarrhea, unspecifiedComments:DOES NOT SEEM LIKE C DIFF FORMED STOOLS- DISCUSSED RISK OF C DIFF AND TO NOTIFY IF LIQUID STOOLS AND SHOULD TEST FOR THAT. TRY SWITCHING OUT CLOTRIMAZOLE TO NYSTATIN IN #2. CONTINUE PROBIOTIC, CONTINUE TRY DIFFERENT ONE. DISCUSSED CONSIDER TRY OFF LACTOSE FOR 1- 2 WEEKS TO SEE IF HELPS SX, MAY BERELATIVELY LACTOSE INTOLERANT AFTER HER DIARRHEA.PT WILL NOTIFY IF DIARRHEA PERSISTS.Follow up:.Recommendations:-- CONTINUE PROBIOTIC- YOU CAN TRY CULTURELLE OR ALIGN INSTEAD IF YOUR DIARRHEA PERSISTS -- HOPEFULLY, SWITCHING TO NYSTATIN FROM CLOTRIMAZOLE WILL HELP -- PEOPLE CAN BECOME RELATIVELY LACTOSE INTOLERANT WHEN THEY HAVE DIARRHEA- YOU CAN TRY LACTOSE-FREE MILK, TRY SLOVAK YOGURT INSTEAD OF REGULAR YOGURT -- CONTINUE BANANAS Functional Status Description No Information Available Mental Status Description No Information Available Referrals Description No Information Available
--- OUTSIDE RECORDS SUMMARY | 2019-04-26 12:06 | XMS REPORT | Continuity of Care Document ---
:1940 External Reference #:[id number] Author Name Marcell Oakes MD, FACS (transmitted by agent of provider Wally Cazares) Address [address] [place] [address] Care Team Providers Name Role Phone Yola Chua MD - Family Care Team Information Hop Strainer [phone] Medicine Problems Active Problems Provider Date Arthroplasty [...] Available Vital Signs Date Vital Result Comment 04/22/2019 10:35am Height 59.5 inches 4'11.50" Weight 126.00 lb Heart Rate 84 /min BP Systolic Sitting 126 mmHg BP Diastolic Sitting 70 mmHg Respiratory Rate 16 /min Body Temperature 98.8 F BMI (Body Mass Index) 25.0 kg/m2 04/08/2019 11:08am Heart Rate 72 /min BP Systolic Sitting 124 mmHg BP Diastolic Sitting 72 mmHg Respiratory Rate 16 /min Body Temperature 97.1 F Results Test Acquired Date Facility Test Result H/L Range Note CBC Auto 04/04/2019 [facility] White Blood 8.8 10^3/uL Normal 3.5-10.[address] [place] [address] [phone] Red Blood Count 3.67 10^6/uL Low 3.70-4.87 [...] Blood Cells % 0.0 Basic Metabolic 04/04/2019 [facility] Sodium 141 mmol/L Normal 135-[address] [place] [address] [phone] Potassium 4.0 mmol/L Normal 3.5-5.0 Chloride 104 mmol/L Normal 101-111 Co2 Carbon Dioxide 29 mmol/L Normal 22-32 Anion Gap 8 mmol/L Normal 2-11 Glucose 118 mg/dL High 70-100 Blood Urea Nitrogen 7 mg/dL Normal 6-24 Creatinine 0.82 mg/dL Normal 0.51-0.95 BUN/Creatinine Ratio 8.5 Normal 8-20 Calcium 9.1 mg/dL Normal 8.6-10.3 Egfr Non- 67.8 >60 Egfr 82.0 >60 1 Laboratory test 04/04/2019 [facility] Phosphorus 2.8 mg/dL Normal 2.5-5.0 finding [address] [place] [address] [phone] Magnesium 1.9 mg/dL Normal 1.9-2.7 1 Because [...] 5 Kidney failure <15 (or dialysis) Procedures Date Code Description Status 03/26/2019 81138 EKG, Interpretation Only Completed Medical Devices Description No Information Available Encounters Type Date Location Provider Dx Diagnosis Office Visit 04/08/2019 Surgical Marcell Oakes, K57.20 [facility] w 11:30a [facility], FACS perforation and abscess w/o bleeding N17.9 Acute kidney failure, unspecified N28.89 Other specified disorders of kidney and ureter Office Visit 04/04/2019 11:30a Bill Saucedo K57.20 [facility] MD, w perforation and FACS abscess w/o bleeding N17.9 Acute kidney failure, unspecified Office Visit 03/29/2019 7:00a Surgical Munir Keane K57.20 [facility] of [facility] PA-C w perforation and abscess w/o bleeding N17.9 Acute kidney failure, unspecified B37.0 Candidal stomatitis Office Visit 03/28/2019 Surgical Hillary Meredith K57.20 [facility] of lg int 7:00a [facility] w perforation and Bottom Sprayer abscess w/o bleeding Office Visit 03/27/2019 Surgical Marcell Oakes K57.20 [facility] of lg int 7:00a [facility] w perforation and Bottom Sprayer abscess w/o bleeding Office Visit 03/26/2019 Surgical Marcell Oakes K57.20 [facility]tr[facility] of lg int 7:00a [facility] w perforation and Bottom Sprayer abscess w/o bleeding Assessments Date Code Description Provider 04/22/2019 K57.20 Diverticulitis of large intestine Marcell Oakes MD, FACS with perforation and abscess without bleeding 04/08/2019 K57.20 Diverticulitis of large intestine Marcell Oakes MD, FACS with perforation and abscess without bleeding 04/08/2019 N17.9 Acute kidney failure, unspecified Marcell Oakes MD, FACS 04/08/2019 N28.89 Other specified disorders of kidney Marcell Oakes MD, FACS and ureter 04/04/2019 K57.20 Diverticulitis of large intestine Marcell Oakes MD, FACS with perforation and abscess without bleeding 04/04/2019 N17.9 Acute kidney failure, unspecified Marcell Oakes MD, FACS 03/29/2019 K57.20 Diverticulitis of large intestine Munir Olmedo PA-C with perforation and abscess without bleeding 03/29/2019 N17.9 Acute kidney failure, unspecified Munir Olmedo PA-C 03/29/2019 B37.0 Candidal stomatitis Munir Olmedo PA-C 03/28/2019 K57.20 Diverticulitis of large intestine Hillary Tarango NP with perforation and abscess without bleeding 03/27/2019 K57.20 Diverticulitis of large intestine Marcell Oakes MD, FACS with perforation and abscess without bleeding 03/26/2019 Z13.6 Encounter for screening for Aguilar Craig M.D., [facility], [facility] cardiovascular disorders 03/26/2019 K57.20 Diverticulitis of large intestine Marcell Oakes MD, FACS with perforation and abscess without bleeding Plan of Treatment Future Appointment(s):06/24/2019 11:00 am - Marcell Oakes MD, [facility] at [facility]04/22/2019 - Marcell Oakes MD, [id number] Diverticulitis of large intestine with perforation and abscess without bleedingFollow up:2 months Functional Status Description No Information Available Mental Status Description No Information Available Referrals Refer to Reason for Referral Status Appt Date Myron Hanson MD Recent hospitalization for complicated Sent diverticulitis. During admission, repeat CT scan with no IV contrast showed persistent IV contrast over 72 hours still in the kidneys. Nephrology was consulted and considered possibility of UVJ pathology. additionally, patient likely will undergo sigmoid colectomy, and I would like her to undergo ureteral stents prior to intervention. [address] [place] [address] [place] [address] [phone]
[2019-04-26] MEDS ORDERED: NS 0.9% 1000 ML** 1,000 ML IV ONE (12:31)
--- NOTE | 2019-04-26 12:44 | ED ---
HPI Febrile Illness - HPI Summary HPI Summary: This pt is a 78 Y/O F presenting to [facility] with a CC of a fever that is currently 101.0 F. She states that she has had the fever since 04/24/2019 and it has steadily increasing in temperature. She states that the fever has increased from 100.8 F to 101.0 F. She was recently treated by Dr. Oakes for diverticulitis recently and was found to have normal bowel movements. She states that she has had rhinorrhea since the onset. She denies any CP, urinary symptoms, sore throat, headache, chills, N/V, abdominal pain, SOB, and rashes. She was recommended to the ED after she called her PCP. She has no aggravating or alleviating factors. She states that she has been taking APAP without relief. She has a PMHx of HTN and angina. - History of Current Complaint Chief Complaint: EDFever Time Seen by Provider: 04/26/19 12:12 Hx Obtained From: Patient Onset/Duration: Started Days Ago - 2, Still Present Time of Onset: 21:00 Timing: Constant Temperature: 101.5 F Current Severity: None Pain Intensity: 0 Pain Scale Used: 0-10 Numeric Aggravating Factors: Nothing Alleviating Factors: Nothing Associated Signs and Symptoms: Negative - CP, urinary symptoms, sore throat, headache, chills, N/V, abdominal pain, SOB, and rashes. - Additional Pertinent History Primary Care Physician: [id number] - Allergy/Home Medications Allergies/Adverse Reactions: Allergies Allergy/AdvReac Type Severity Reaction Status Date / Time Anesthetics - Amide Type AdvReac Severe Vomiting Verified 04/26/19 11:57 Anesthetics - Kerry Type- AdvReac Severe Vomiting Verified 04/26/19 11:57 Parabens Home Medications: Home Medications Aspirin [Aspirin Adult Low Strengt 81 MG] 81 mg PO DAILY 12/04/15 [History Confirmed 04/26/19] Fluvastatin (NF) [Lescol (NF)] 40 mg PO BEDTIME 12/04/15 [History Confirmed ] Ascorbic Acid TAB* [Vitamin C TAB*] 500 mg PO DAILY 04/26/19 [History Confirmed 04/26/19] Cholecalciferol CAP/TAB(NF) [Vitamin D3 CAP/TAB (NF)] 5,000 unit PO DAILY [History Confirmed 04/26/19] Losartan Potassium 100 mg PO DAILY 04/26/19 [History Confirmed 04/26/19] Multivitamins/Minerals TAB* [Theragran/minerals TAB*] 1 tab PO DAILY 04/26/19 [ History Confirmed 04/26/19] [place]-3 Fatty Acids (Nf) [Fish Oil (NF)] 1,000 mg PO DAILY 04/26/19 [History Confirmed 04/26/19] PMH/Surg Hx/FS Hx/Imm Hx Previously Healthy: Yes Endocrine/Hematology History: Reports: Hx Thyroid Disease - 1/2 thyroid removed no problems since Denies: Hx Diabetes Cardiovascular History: Reports: Hx Angina, Hx Hypercholesterolemia, Hx Hypertension, Other Cardiovascular Problems/Disorders - HYPERCHOLESTEROLEMIA Respiratory History: Denies: Hx Asthma, Hx Chronic Obstructive Pulmonary Disease (COPD) GI History: Reports: Other GI Disorders - diverticulitis Denies: Hx Diverticulosis History: Denies: Hx Kidney Stones Musculoskeletal History: Reports: Hx 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 Denies: Hx Osteoporosis Sensory History: Reports: Hx Cataracts - slight in both, Hx Contacts or Glasses Denies: Hx Hearing Aid Opthamlomology History: Reports: Hx Cataracts - slight in both, Hx Contacts or Glasses Neurological History: Reports: Hx Migraine - off and on - none recently - Cancer History Hx Chemotherapy: No Hx Radiation Therapy: No - Surgical History Surgical History: Yes Surgery Procedure, Year, and Place: partial thyroidectomy Hx Anesthesia Reactions: Yes - Immunization History Immunizations Up to Date: Yes Infectious Disease History: No Infectious Disease History: Denies: Traveled Outside the [place] in Last 30 Days - Family History Known Family History: Negative: Renal Disease, Respiratory Disease - Social History Occupation: Retired Lives: Alone Alcohol Use: None Hx Substance Use: No Substance Use Type: Reports: None Hx Tobacco Use: No Smoking Status (MU): Never Smoked Tobacco Review of Systems Positive: Fever - 101.5 F. Negative: Chills Negative: Sore Throat Negative: Chest Pain Negative: Shortness Of Breath Negative: Abdominal Pain, Vomiting, Nausea Genitourinary: Negative Negative: discharge, urgency Negative: Rash Negative: Headache All Other Systems Reviewed And Are Negative: Yes Physical Exam - Summary Physical Exam Summary: VITAL SIGNS: Reviewed. GENERAL: Patient is a well-developed and nourished female who is lying comfortable in the stretcher. Patient is not in any acute respiratory distress. HEAD AND FACE: No signs of trauma. No ecchymosis, hematomas or skull depressions. No sinus tenderness. EYES: PERRLA, EOMI x 2, No injected conjunctiva, no nystagmus. EARS: Hearing grossly intact. Ear canals and tympanic membranes are within normal limits. MOUTH: Oropharynx within normal limits. NECK: Supple, trachea is midline, no adenopathy, no JVD, no carotid bruit, no c- spine tenderness, neck with full ROM. CHEST: Symmetric, no tenderness at palpation. LUNGS: Clear to auscultation bilaterally. No wheezing or crackles. CVS: Regular rate and rhythm, S1 and S2 present, no murmurs or gallops appreciated. ABDOMEN: Soft, non-tender. No signs of distention. No rebound, no guarding, and no masses palpated. Bowel sounds are normal. EXTREMITIES: FROM in all major joints, no edema, no cyanosis or clubbing. NEURO: Alert and oriented x 3. No acute neurological deficits. Speech is normal and follows commands. SKIN: Dry and warm. Triage Information Reviewed: Yes Vital Signs On Initial Exam: Initial Vitals Temp Pulse Resp BP Pulse Ox 98.8 F 96 16 101/81 96 04/26/19 11:55 04/26/19 11:55 04/26/19 11:55 04/26/19 11:55 04/26/19 11:55 Vital Signs Reviewed: Yes Procedures - Sedation Patient Received Moderate/Deep Sedation with Procedure: No Diagnostics - Vital Signs Vital Signs Temp Pulse Resp BP Pulse Ox 04/26/19 11:55 98.8 F 96 16 101/81 96 - Laboratory Result Diagrams: 04/26/19 12:57 04/26/19 12:57 Lab Statement: Any lab studies that have been ordered have been reviewed, and results considered in the medical decision making process. - Radiology CXR Radiology Interpretation Completed By: Radiologist Summary of Radiographic Findings: No active cardiopulmonary disease is noted. ED Physician has reviewed this report. - CT CT A/P CT Interpretation Completed By: Radiologist Summary of CT Findings: Continued significant perienteric inflammatory change at the sigmoid colon with foci. of extra enteric gas within the sigmoid mesentery without evidence for a loculated. drainable abscess collection. Interval worsening with new contiguous extension of. inflammatory change to the urinary bladder with mural thickening at the dome as described. Negative for resulting bowel obstruction. Hepatomegaly. ED physician has reviewed this report. Re-Evaluation - Re-Evaluation First Eval Re-Evaluation Time: 16:17 Change: Unchanged Comment: Upon re-evaluation the pt expressed concerns and wants a CT scan. Discharge will wait. Course/Dx - Course Assessment/Plan: This pt is a 78 Y/O F presenting to [facility] with a CC of a fever that is currently 101.0 F. She states that she has had the fever since 2019 and it has steadily increasing in temperature. She states that the fever has increased from 100.8 F to 101.0 F. She was recently treated by Dr. Oakes for diverticulitis recently and was found to have normal bowel movements. She states that she has had rhinorrhea since the onset. She denies any CP, urinary symptoms, sore throat, headache, chills, N/V, abdominal pain, SOB, and rashes. She was recommended to the ED after she called her PCP. She has no aggravating or alleviating factors. She states that she has been taking APAP without relief. She has a PMHx of HTN and angina. Blood work without any significant abnormality except for the WBC of 14.4, hemoglobin 9.6, hematocrit 29 platelets 270. Potassium level is 2.2 chloride is 100, glucose 124, CRP 198. The patient has increased CRP and white blood cell count, however the patient is being treated for diverticulitis therefore, I believe that this elevated levels are secondary to inflammation. Patient reports that she doesnt have any abdominal pain, nausea vomiting or diarrhea or constipation. I offered the patient and abdominal and pelvic CT but she declined. Influenza A and B is negative. The blood cultures are still pending. I discussed all the findings and test results with the patient and the need to return to the emergency department if she develops any other symptom. The patient denies any headache, chest pain, shortness of breath or palpitations. Patient denies any cough nausea vomiting diarrhea constipation. She has no symptoms. Patient is hemodynamically stable alert and oriented 3. Dr. Oakes spoke with the patient and she changed her mind and she will have an abdominal and pelvic CT even though she does not have any abdominal complaints. Abdominal and pelvic CT IMPRESSION: #. Continued significant perienteric inflammatory change at the sigmoid colon with foci of extra enteric gas within the sigmoid mesentery without evidence for a loculated drainable abscess collection. Interval worsening with new contiguous extension of inflammatory change to the urinary bladder with mural thickening at the dome as described. Negative for resulting bowel obstruction. #. Hepatomegaly. Patient was placed in Zosyn. I discussed the case with Dr. Oakes and recommends admission to the hospitalist service. I discuss my physical exam and test results with Dr. Garcia from the hospitalist services and she agrees to admit the patient to her services. The patient is hemodynamically stable alert and oriented x 3. - Diagnoses Provider Diagnoses: Fever, Diverticulitis - Provider Notifications Discussed Care Of Patient With: Danni Garcia Time Discussed With Above Provider: 18:02 Instructed by Provider To: Admit As Inpatient Admit/Transition Orders Completed By ED Provider: Yes Discharge ED - Sign-Out/Discharge Documenting (check all that apply): Patient Departure - admitted - Discharge Plan Condition: Good Disposition: ADMITTED TO [facility] Referrals: Yola Chua MD [Primary Care Provider] - 2 Days Additional Instructions: PLEASE FOLLOW UP WITH YOUR PRIMARY CARE PROVIDER IN 1-3 DAYS AND RETURN TO THE EMERGENCY DEPARTMENT FOR ANY NEW OR WORSENING SYMPTOMS. - Billing Disposition and Condition Condition: GOOD Disposition: Admitted to [facility] - Attestation Statements Document Initiated by David: Yes Documenting Scribe: Eulogio Cobb Provider For Whom David is Documenting (Include Credential): Zachary Castro MD Scribe Attestation: Eulogio Clemens, scribed for Zachary Castro MD on 04/26/19 at 1824. Scribe Documentation Reviewed: Yes Provider Attestation: The documentation as recorded by the Eulogio ann accurately reflects the service I personally performed and the decisions made by me, Zachary Castro MD Status of Scribe Document: Viewed
[2019-04-26 13:03] LABS: Influenza A Molecular Negative (Negative); Influenza B Molecular Negative (Negative)
[2019-04-26 13:09] LABS: ABS Lymphocytes 1.7 10^3/ul (1.0-4.8); ABS Monocytes 1.1 10^3/ul (0-0.8); ABS Neutrophils 11.6 10^3/ul (1.5-7.7); Eosinophil % 0.1 %; Hematocrit 29 % (35-47); Hemoglobin 9.6 g/dL (12.0-16.0); Lymphocyte % 11.9 %; Mean Corpuscular HGB Conc 33 g/dL (31-36); Mean Corpuscular Hemoglobin 27 pg (27-31); Mean Corpuscular Volume 80 fL (80-97); Platelet Count 370 10^3/uL (150-450); Red Blood Count 3.57 10^6 /uL (3.70-4.87); Red Cell Distribution Width 17 % (10-15); White Blood Count 14.4 10^3/uL (3.5-10.8)
[2019-04-26 13:26] LABS: Albumin 3.9 g/dL (3.2-5.2); Albumin/Globulin Ratio 1.1 (1-3); BUN/Creatinine Ratio 19.4 (8-20); C Reactive Protein 198.99 mg/L (<8.01); Calcium 9.4 mg/dL (8.6-10.3); EGFR African American 95.3 (>60); EGFR Non-African American 78.8 (>60); Globulin 3.6 g/dL (2-4); Potassium 3.2 mmol/L (3.5-5.0); Total Bilirubin 0.5 mg/dL (0.2-1.0); Total Protein 7.5 g/dL (6.4-8.9)
[2019-04-26] MEDS ORDERED: Potassium Chlor TAB* 20 MEQ TAB.ER PO ONE (13:30)
[2019-04-26 13:31] LABS: Activated Partial Thrombo Time 35.7 seconds (26.0-38.0); INR 1.44 (0.82-1.09)
[2019-04-26 14:01] LABS: Magnesium 1.8 mg/dL (1.9-2.7)
[2019-04-26 14:27] LABS: Erythrocyte Sed Rate > 120 mm/Hr (0-29)
[2019-04-26 14:51] LABS: Urine Appearance Clear; Urine Bilirubin Negative (Negative); Urine Blood 2+ (Negative); Urine Color Straw; Urine Glucose Negative (Negative); Urine Ketones Negative (Negative); Urine Nitrite Negative (Negative); Urine Protein Negative (Negative); Urine Specific Gravity 1.005 (1.010-1.030); Urine Urobilinogen Negative (Negative)
[2019-04-26 14:55] LABS: Urine Bacteria 1+ (Absent); Urine Red Blood Cell Absent (Absent); Urine Squamous Epithelial Cell Present (Absent); Urine White Blood Cell Trace(0-5/hpf) (Absent)
[2019-04-26] MEDS ORDERED: Iohexol 300* (CONTRAST) 10 ML SDV IV ONE (16:55)
[2019-04-26] MEDS ORDERED: Piperacillin/Tazobac ADVAN(*) 3.375 GM in NS 0.9% 100 ML* 100 ML IVPB ONE (17:57)
--- NOTE | 2019-04-26 19:43 | CONS ---
[facility]; Yola Chua MD; Myron Hanson MD SURGICAL CONSULTATION REPORT: DATE OF CONSULT: 04/26/19 LOCATION: The patient is seen in the emergency room. HISTORY OF PRESENT ILLNESS: Ms. Mcadams is a 78-year-old female known to me after recent admission to the hospital with complicated diverticulitis. She was treated with IV antibiotics and showed impr ovement quickly. She had a followup CAT scan prior to discharge, which although showed complicating factors, it was unchanged from the preoperative one with regards to the sigmoid colon. Plan was for discharge home and the patient was maintained on oral antibiotics. She had come to us to the emergen cy room on 03/26/19 having already been on antibiotics for a diagnosis of diverticulitis having been her second episode within a year. She was on Cipro and Flagyl and we did convert this to Augmentin. I had followed the patient as an outpatient while she was on the antibiotics and then after this cour se completed, the patient was doing very well. My last visit with her was a week ago. At that point, she was off antibiotics and afebrile toleratin g diet. She had some loose bowel movements, but these became more solid and the patient was adamant that she would not want to undergo a colonoscopy in the future. My recommendations as outpatient was for sigmoid colectomy. The patient understood my recommendation and through her primary care doctor was considering strongly a second opinion. This was due to occu r this coming week. The patient presented to the emergency room today with fevers and decreased appetite. She denied any abdominal pain, no nausea, no vomiting. Her bowel movements were normalizing. She denied any dysur ia, no pneumaturia. In the emergency room, she was evaluated by the ER doctor. I did evaluate her because she had contac antonio our offices and so going in to check her. I did consider strongly without any other etiology for her fever to undergo a CAT scan of the abdomen and pelvis. Of note, she was afebrile in the emergen cy room, but did have an elevated white blood cell count of 14 along with a CRP that was 200. After our discussion, the patient did agree to a CAT scan and this was done through the emergency oj m physician. This was done without oral contrast and only IV contrast. These images as well as the report were reviewed and consistent with continued inflammatory changes in sigmoid colon with foci of extraluminal gas without abscess formation along with some inflammatory changes in the dome of the u rinary bladder. PAST MEDICAL HISTORY: 1. Hypertension. 2. Hypercholesterolemia. 3. Diverticulitis. PAST SURGICAL HISTORY: Hemithyroidectomy. MEDICATIONS: Reviewed and please see list for details. ALLERGIES: No obvious allergies concern for previous anesthesia needs. FAMILY HISTORY: Noncontributory. SOCIAL HISTORY: Nonsmoker. She lives alone. She is very active. REVIEW OF SYSTEMS: Fevers as described is high as 101.5 at home, afebrile here. Sweats at night and that she notes her fevers usually worse during the afternoon. No shortness of breath or chest pain. No cardiac disease. No GI complaints today other than decreased appetite stating that nothing taste good and she did have no appetite for anything. No dysuria, no pneumaturia. Bowel habits as describ ed above. Anesthesia complications after hemithyroidectomy. No bleeding or clotting disorders. No endocrine disorders. The patient refused colonoscopy, but I do believe she has had one in the past. No family history of colon cancers, but of note, her after having perforation following a colonoscopy. PHYSICAL EXAM: On physical exam in the emergency room, the patient is afebrile, heart rate 86, 140/ 70 blood pressure and 97% O2 sat on room air. She is alert and oriented x3, in no apparent distress. Head, eyes, ears, nose, and throat: Normocephalic, atraumatic. Sclerae anicteric. Mucous membrane s are moist. Neck: No lymphadenopathy. Lungs: Clear to auscultation bilaterally. Abdomen: Soft, mild distention, tender only on deep palpation of the right lower quadrant. Rectal exam not performe d. No CVA tenderness. Extremities: Within normal limits. DIAGNOSTIC STUDIES/LAB DATA: Labs reviewed and showed an elevated white blood count as described as 14.4 with H and H 9.6/29, which is about her baseline. Chemistry reviewed and did show a low potassiu m. However, the patient's creatinine was 0.72, which was improvement compared to initial admission, she appeared as described. Urinalysis shows blood in the urine, negative nitrites. 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 Recommendation i s for admission, IV fluids, n.p.o. status, IV antibiotics and urology evaluation and likely OR for op en sigmoid colectomy with end colostomy. I outlined the details of this procedure with the patient. The patient does not wish to undergo a colostomy placement, but this is something that I do strongly recommend at this time, but it is not emergent rather she has failed therapy with this refractory co urse and I think it is the best option for her. She may consider transfer and it is not unreasonable and an Infectious Disease consult would also be appropriate. I have asked the ER doctor to reach ou t to the hospitalist service and asked them to assist in the management of this mati patient and we will follow her closely. [id number] #: [id number]
[2019-04-26] MEDS ORDERED: Acetaminophen TAB* 325 MG PO PRN (20:43)
--- NOTE | 2019-04-26 21:19 | ADMNOTE ---
Subjective Interval History: this is my H/P 78 yo female with hx of diveriticulitis, presented with CC of fever. She has been spiking fevers for about 2 days. Otherwise has absolutely no other symptoms. She denies upper respiratory symptoms, abdominal pain, N/V, diarrhea. She measured her temperature a few times at home and it was 101, so she came to the ER. She is a pt of Dr. Oakes for diverticulitis. She was treated last a few weeks ago. In the ED, she is febrile. Has a white count of [address] abdomen shows perienteric inflammatory changes at the sigmoid colon without evidence of loculated drainable abscess. Surgery requested admission to hospitalist service for abx. of note, she is flu neg. Family History: Unchanged from Admission Social History: Unchanged from Admission Past Medical History: Unchanged from Admission Review of Systems - Measurements Intake and Output: Intake and Output Last 24 Hours 04/24/19 04/25/19 04/26/19 04/27/19 06:59 06:59 06:59 06:59 Intake Total 1000 Balance 1000 Weight 123 lb Intake: IV Fluids 1000 - Review of Systems Constitutional Symptoms: Positive: Fever Negative: Weight Gain, Weight Loss, Weakness, Fatigue, Night Sweats, Unexplained Falls, Other Dermatology: Negative: Normal, Rash, Skin Lesions, Cancer, Skin Lumps, Other HEENT: Negative: Normal, Change in Hearing, Vertigo, Dental Problems, Tinnitus, Sinus Problem, Other Eyes: Negative: Normal, Change in Vision, Double Vision, Eye Pain, Glaucoma, Cataract, Contacts or Glasses, Other Thyroid: Negative: Normal, Goiter, Thyroid Nodule, Cold Intolerance, Heat Intolerance , Sweatiness, Tremor, Frequent Defecation, Constipation, Palpitations, Primary Hypothyroidism, Primary Hyperthyroidism, Weight Loss, Weight Gain, Change in Skin/Hair, Change in Menstruation, Radiation Exposure, Other Pulmonary: Negative: Normal, Cough, Sputum, Hemoptysis, Wheezing, Respiratory Distress, Shortness of Breath, COPD, Asthma, Exercise Intolerance, Home Oxygen, Other Cardiology: Negative: Normal, Chest Pain, Shortness of Breath, Palpitations, Swelling of Ankles, Peripheral Vascular Dis, Edema, Faintness, Syncope, Claudication, Proximal NocturnalDyspnea, Orthopnoea, Other Gastroenterology: Negative: Normal, Abdominal Pain, Nausea, Vomiting, Anorexia, Indigestion, Difficulty Swallowing, Heartburn, Constipation, Diarrhea, Blood in Stools, Change in Bowel Habits, Haematemesis, Melena, Other Genital - Urinary: Negative: Normal, Dysuria, Hematuria, Polyuria, Nocturia, Other Musculoskeletal: Negative: Joint Pain, Joint Stiffness, Arthritis, Osteoporosis, Low Back Pain , Sciatica, Joint Deformities, Kyphoscoliosis, Other Endocrinology: Negative: Normal, Thyroid Problems, Adrenal Problems, Gonadal Problems, Family Hx Endocrine Disorders, Obesity, Diabetes Mellitus, Hyperglycemia, Hx Hypoglycemia, Diabetic Foot Ulcers, Calluses, Hirsutism, Menstrual Abnormalities , Polydipsia, Polyuria, Gonadal Problems, Gynecomastia, Pituitary disease, Other Hematologic/Lymphatic: Negative: Anemia, Easy Bruising, Hx Leukemia, Hx Lymphoma, Use of Anticoagulant, Use of Antiplatelet Drugs, Other Neurology: Negative: Normal, Headache, Migraines, Change in Vision, Diplopia, Dizziness , Change in Balancing, Change in Coordination, Change in Memory, Change in Speech, Change in Sphincter Function, Change in Walking, Numbness\Paresthesiae, Unexplained Weakness, Hx of Stroke\TIA, Hx of Seizures, Other Psychiatry: Negative: Normal, Depression, Anxiety, Depressed Mood, Anhedonia, Sexual Dysfunction, Weight Change, Guilt Feelings, Tearfulness, Unusual Fatigue, Unusual Anxiety, Suicidal Ideation, Hypomania, Eating Disorders, Other Objective Active Medications: Acetaminophen (Tylenol Tab*) 650 mg PO Q6H PRN PRN Reason: PAIN - MILD Sodium Chloride (Ns 0.9% 1000 Ml) 1,000 mls @ 125 mls/hr IV PER RATE [facility] Losartan Potassium (Cozaar Tab*) 100 mg PO DAILY [facility] Vital Signs - 8 hr 04/26/19 04/26/19 04/26/19 13:38 13:47 14:00 Temperature Pulse Rate 83 80 77 Respiratory Rate Blood Pressure 130/56 127/62 (mmHg) O2 Sat by Pulse 97 98 97 Oximetry 04/26/19 04/26/19 04/26/19 14:17 14:47 15:00 Temperature Pulse Rate 84 81 85 Respiratory Rate Blood Pressure 144/61 131/76 (mmHg) O2 Sat by Pulse 98 97 98 Oximetry 04/26/19 04/26/19 04/26/19 15:17 15:47 16:00 Temperature Pulse Rate 81 91 Respiratory Rate Blood Pressure 126/61 139/77 (mmHg) O2 Sat by Pulse 97 95 Oximetry 04/26/19 04/26/19 04/26/19 16:17 16:47 16:53 Temperature 98.1 F Pulse Rate 86 81 Respiratory Rate Blood Pressure 131/64 144/77 (mmHg) O2 Sat by Pulse 95 97 Oximetry 04/26/19 04/26/19 04/26/19 17:13 17:17 18:00 Temperature Pulse Rate 89 86 98 Respiratory Rate Blood Pressure 142/70 (mmHg) O2 Sat by Pulse 97 97 96 Oximetry 04/26/19 04/26/19 04/26/19 18:17 18:47 19:00 Temperature Pulse Rate 93 92 91 Respiratory Rate Blood Pressure 155/74 149/71 (mmHg) O2 Sat by Pulse 94 94 94 Oximetry 04/26/19 04/26/19 04/26/19 19:17 19:45 19:47 Temperature 100.2 F Pulse Rate 90 89 88 Respiratory 16 Rate Blood Pressure 139/109 137/86 141/64 (mmHg) O2 Sat by Pulse 94 94 95 Oximetry 04/26/19 04/26/19 04/26/19 20:00 20:17 20:32 Temperature Pulse Rate 87 89 86 Respiratory Rate Blood Pressure 142/67 135/69 (mmHg) O2 Sat by Pulse 94 94 94 Oximetry 04/26/19 20:35 Temperature 99.0 F Pulse Rate 88 Respiratory 16 Rate Blood Pressure 135/69 (mmHg) O2 Sat by Pulse 95 Oximetry Oxygen Devices in Use Now: None Appearance: NID Eyes: No Scleral Icterus, PERRLA Ears/Nose/Mouth/Throat: NL Teeth, Lips, Gums, Mucous Membranes Moist Neck: NL Appearance and Movements; NL JVP, Trachea Midline Respiratory: Symmetrical Chest Expansion and Respiratory Effort, Clear to Auscultation Cardiovascular: NL Sounds; No Murmurs; No JVD, No Edema Abdominal: NL Sounds; No Tenderness; No Distention Lymphatic: No Cervical Adenopathy Extremities: No Edema, No Clubbing, Cyanosis Skin: No Rash or Ulcers, No Nodules or Sclerosis Neurological: Alert and Oriented x 3, NL Muscle Strength and Tone Result Diagrams: 04/26/19 12:57 04/26/19 12:57 Assess/Plan/Problems-Billing Assessment: - Patient Problems (1) Diverticulitis Current Visit: No Status: Acute Code(s): K57.92 - DVTRCLI OF INTEST, PART UNSP, W/O PERF OR ABSCESS W/O BLEED SNOMED Code(s): 295797930 Comment: presenting with fever X 2 days. Otherwise asymptomatic. Has a hx of diveritculitis and sees Dr. Oakes. CT abdomen was done and showed perienteric inflammation. IV zosyn, IVF, NPO (2) DVT prophylaxis Current Visit: Yes Status: Acute Code(s): Z29.9 - ENCOUNTER FOR PROPHYLACTIC MEASURES, UNSPECIFIED SNOMED Code(s): 047158216 Comment: heparin (3) Full code status Current Visit: Yes Status: Acute Code(s): Z78.9 - OTHER SPECIFIED HEALTH STATUS SNOMED Code(s): 771867041
[2019-04-26] MEDS ORDERED: Zosyn per Pharmacy* NOTE FOLLOW UP SCH (22:00)
[2019-04-26] MEDS: NS 0.9% 1000 ML** 1,000 ML IV SCH (22:31)
[2019-04-26] MEDS: ZOSYN 3.375 GM Q8H per EXTENDED INFUSION IVPB SCH ×2 (22:42)
[2019-04-27] MEDS: Ondansetron INJ* 2 MG/ML VIAL IV PRN (05:18)
[2019-04-27 05:38] LABS: ABS Lymphocytes 1.7 10^3/ul (1.0-4.8); ABS Monocytes 0.9 10^3/ul (0-0.8); ABS Neutrophils 8.1 10^3/ul (1.5-7.7); Eosinophil % 0.1 %; Hematocrit 28 % (35-47); Hemoglobin 9.3 g/dL (12.0-16.0); Lymphocyte % 16.2 %; Mean Corpuscular HGB Conc 34 g/dL (31-36); Mean Corpuscular Hemoglobin 27 pg (27-31); Mean Corpuscular Volume 80 fL (80-97); Mean Platelet Volume 7.3 fL (7.4-10.4); Platelet Count 358 10^3/uL (150-450); Red Blood Count 3.47 10^6 /uL (3.70-4.87); Red Cell Distribution Width 17 % (10-15); White Blood Count 10.8 10^3/uL (3.5-10.8)
[2019-04-27 05:55] LABS: Albumin 3.4 g/dL (3.2-5.2); BUN/Creatinine Ratio 12.3 (8-20); Calcium 8.7 mg/dL (8.6-10.3); EGFR African American 93.8 (>60); EGFR Non-African American 77.5 (>60); Globulin 3.5 g/dL (2-4); Potassium 3.5 mmol/L (3.5-5.0); Total Bilirubin 0.7 mg/dL (0.2-1.0); Total Protein 6.9 g/dL (6.4-8.9)
[2019-04-27] MEDS: ZOSYN 3.375 GM Q8H per EXTENDED INFUSION IVPB SCH ×6 (06:19→20:48)
[2019-04-27] MEDS: NS 0.9% 1000 ML** 1,000 ML IV SCH (07:47)
[2019-04-27] MEDS: Heparin VIAL(*) 5000 UNITS/ML VIAL (FIVE THOUSAND) SUBCUT SCH ×2 (07:48→20:25)
[2019-04-27] MEDS ORDERED: Losartan TAB* 25 MG PO SCH (09:00)
--- NOTE | 2019-04-27 10:46 | PN ---
Subjective Date of Service: 04/27/19 Interval History: Patient denied abdominal pain, afebrile overnight. Complained of one episode of watery stool yesterday, stating she already had diarrhea with antibiotics Denied dysuria, pyuria,swelling urine. She told me she initially wanted to [place] for treatment, now she would like to stay here for operation. Objective Active Medications: Acetaminophen (Tylenol Tab*) 650 mg PO Q6H PRN PRN Reason: PAIN - MILD Fluvastatin Sodium (Lescol (Nf)) 40 mg PO BEDTIME [facility]; Protocol Heparin Sodium (Porcine) (Heparin Vial(*)) 5,000 units SUBCUT Q12HR [facility] Last Admin: 04/27/19 07:48 Dose: 5,000 units Sodium Chloride (Ns 0.9% 1000 Ml) 1,000 mls @ 125 mls/hr IV PER RATE [facility] Last Admin: 04/27/19 07:47 Dose: 125 mls/hr Piperacillin Sod/Tazobactam (Sod 3.375 gm/ Sodium Chloride) 100 mls @ 25 mls/ hr IVPB Q8H [facility] Last Admin: 04/27/19 06:19 Dose: 25 mls/hr Pto Nf Med* Losartan (100mg Tab) 1 admin PO DAILY [facility] Ondansetron HCl (Zofran Inj*) 4 mg IV Q6H PRN PRN Reason: NAUSEA Last Admin: 04/27/19 05:18 Dose: 4 mg Pharmacy Consult (Zosyn Per Pharmacy*) 1 note FOLLOW UP .ZOSYN PER PHARMACY [facility] Vital Signs - 8 hr 04/27/19 04/27/19 06:14 07:15 Temperature 99.5 F Pulse Rate 96 Respiratory 18 16 Rate Blood Pressure 142/63 (mmHg) O2 Sat by Pulse 96 Oximetry Oxygen Devices in Use Now: None Exam: Gen: sitting on a chair, comfortable. NAD HEENT: normacephalic and atraumatic Lungs: clear on auscultation Heart: S1/S2 heard with no murmur Abdomen: Soft, nondistended and nontender. Normal BS heard Extremities: no cyanosis, no edema. Neuro; Alert and oriented x4. Gross motor strength normal in all 4 limbs. Result Diagrams: 04/27/19 05:07 04/27/19 05:07 Assess/Plan/Problems-Billing Assessment: Marycruz Mcadams is a 78 y/o female with history of HTN, HLD, diverticulosis, presented with fever for 2 days, found to have sepsis due to complicated diverticulitis, with possible colovesicular fistula. - Patient Problems (1) Diverticulitis Current Visit: No Status: Acute Code(s): K57.92 - DVTRCLI OF INTEST, PART UNSP, W/O PERF OR ABSCESS W/O BLEED SNOMED Code(s): 611452325 Comment: complicated diverticlus with colovesicular fistula likely appreciate general surgery recs possible op on Monday Based on RCRI, her preoperative risk for abdominal surgery is 6% in terms of 30 day risk of detah, DC or cardiac arrest. She is medically cleared for operation. (2) Hypertension Current Visit: Yes Status: Acute Code(s): I10 - ESSENTIAL (PRIMARY) HYPERTENSION SNOMED Code(s): 71589864 Comment: BP 117-144/57-65mmhg continue home med losartan (3) Hyperlipidemia Current Visit: Yes Status: Acute Code(s): E78.5 - HYPERLIPIDEMIA, UNSPECIFIED SNOMED Code(s): 44171500 Comment: continue fluvostatin (4) DVT prophylaxis Current Visit: Yes Status: Acute Code(s): Z29.9 - ENCOUNTER FOR PROPHYLACTIC MEASURES, UNSPECIFIED SNOMED Code(s): 983691310 Comment: heparin Status and Disposition: Inpatient Medicine. Attestation Documenting Resident: Bernarda Gomez Supervising Physician: Cosme Avila Attending/Supervising Physician Comment: 78 year old w/ recurrent diverticulitis. Will go to OR in 2 days, discussed w/ resident coordinating w/ urology and general surgery. Continue IV abx. Attestation: This service has been performed in part by a resident under the direction of a teaching physician.I, Cosme Avila, performed the service, or was physically present during the critical, or chapman portions of the service, furnished by the resident. I participated in the management of the patient.
--- NOTE | 2019-04-27 17:04 | CONS ---
CONSULTATION NOTE: DATE OF CONSULT: 04/27/19 LOCATION: The patient is in room #432. HISTORY OF PRESENT ILLNESS: I was asked by the hospitalist service and by Dr. Oakes to see this 78-year-old white female because of diverticulitis. Ms. Mcadams was admitted about one month ago with acute diverticulitis. She was managed conservatively with antibiotics and she improved. At that time, her CT showed some thickening of the bladder wall; however, the thickening was adjacent to where the diverticulitis was noted. Dr. Hanson at that time had recommended performing a cystoscopy at a later date to rule out any bladder lesions. The cystoscopy has not been done yet because the patient was still having the symptoms of diverticulitis. The patient was readmitted to [facility] because of flare-up of her diverticulitis and she is back on intravenous antibiotics. CT scan was repeated and upon review she has no hydronephrosis, no ureteral obstruction, and no evidence of any colovesical fistula. There is a loop of inflamed sigmoid adjacent to the left anterior bladder wall, associated with thickening of that wall, but there is no evidence of bladder mass, and no signs of colo-vesical fistula formation. Upon questioning, the patient has no urinary symptoms. She denies any flank pain. She has no symptoms of urinary tract infection and no voiding symptoms of urgency frequency, burning on urination or gross hematuria. She also denies any pneumaturia or passage of any particles in her urine. She denies any past history of smoking. No past history of gross hematuria. IMPRESSION AND PLAN: The thickening of the left anterior bladder wall is most likely inflammatory secondary to the adjacent diverticular abscess. No additional urological workup is needed at this time. I discussed her condition with Dr. Oakes, her surgeon. He plans to perform a laparotomy, sigmoid resection, drainage of the diverticular abscess with probable creation of colostomy. He requested that I place a left ureteral stent for easier identification of the left ureter during the surgery. This will be performed at the initiation of the laparotomy and at cystoscopy will check the bladder wall to rule out any bladder lesions. I discussed the above plans with Ms. Mcadams and her daughter, and all their questions were answered. [id number]/[facility] #: [id number] [facility]
[2019-04-27] MEDS: LOSARTAN 100 MG PO SCH (20:24)
[2019-04-27] MEDS: FLUVASTATIN PO SCH (20:25)
[2019-04-28] MEDS: NS 0.9% 1000 ML** 1,000 ML IV SCH ×2 (02:10→14:04)
[2019-04-28] MEDS: ZOSYN 3.375 GM Q8H per EXTENDED INFUSION IVPB SCH ×6 (06:10→22:01)
[2019-04-28] MEDS: Heparin VIAL(*) 5000 UNITS/ML VIAL (FIVE THOUSAND) SUBCUT SCH ×2 (09:12→20:06)
--- NOTE | 2019-04-28 11:29 | PN ---
Progress Note - Progress Note Date of Service: 04/28/19 SOAP: Subjective: Pt seen and examined yesterday and again now. no significant abdo pain. pos appetite. loose BMs we discussed at length yesterday regarding segmental colectomy and colostomy vs anastomosis with protective ileostomy depending upon findings at time of surgery. Pt also aware that she may require bladder repair at time of surgery. Pt feels confident going forward with surgery at this time. The plan in Tues or wed this week Objective: Temp Pulse Resp BP Pulse Ox 97.8 F 69 16 142/83 96 04/28/19 07:15 04/28/19 07:15 04/28/19 07:42 04/28/19 07:15 04/28/19 07:42 a and o x3, nad abdo: soft./ distended/ NT Assessment: complicated diverticulitis- refractory Plan: OR for sigmoid colectomy appreciate note. Will need uretal stenting abx for now
--- NOTE | 2019-04-28 14:14 | PN ---
Subjective Date of Service: 04/28/19 Interval History: Patient has some LLQ pain occasionally. Tolerating clear liquids. Walking in [place]. Bee from Dr. Oakes that surgery may occur Monday. Family History: Unchanged from Admission Social History: Unchanged from Admission Past Medical History: Unchanged from Admission Objective Active Medications: Acetaminophen (Tylenol Tab*) 650 mg PO Q6H PRN PRN Reason: PAIN - MILD Fluvastatin Sodium (Lescol (Nf)) 40 mg PO BEDTIME [facility]; Protocol Last Admin: 04/27/19 20:25 Dose: 40 mg Heparin Sodium (Porcine) (Heparin Vial(*)) 5,000 units SUBCUT Q12HR [facility] Last Admin: 04/28/19 09:12 Dose: 5,000 units Sodium Chloride (Ns 0.9% 1000 Ml) 1,000 mls @ 125 mls/hr IV PER RATE [facility] Last Admin: 04/28/19 14:04 Dose: 125 mls/hr Piperacillin Sod/Tazobactam (Sod 3.375 gm/ Sodium Chloride) 100 mls @ 25 mls/ hr IVPB Q8H [facility] Last Admin: 04/28/19 14:04 Dose: 25 mls/hr Losartan Potassium (Cozaar Tab*) 100 mg PO DAILY [facility] Ondansetron HCl (Zofran Inj*) 4 mg IV Q6H PRN PRN Reason: NAUSEA Last Admin: 04/27/19 05:18 Dose: 4 mg Pharmacy Consult (Zosyn Per Pharmacy*) 1 note FOLLOW UP .ZOSYN PER PHARMACY [facility] Vital Signs - 8 hr 04/28/19 04/28/19 04/28/19 07:15 07:42 11:15 Temperature 36.6 C 37.1 C Pulse Rate 69 85 Respiratory 16 16 16 Rate Blood Pressure 142/83 137/63 (mmHg) O2 Sat by Pulse 96 96 95 Oximetry Oxygen Devices in Use Now: None Appearance: alert, no distress Eyes: No Scleral Icterus Neck: NL Appearance and Movements; NL JVP Respiratory: Clear to Auscultation Cardiovascular: NL Sounds; No Murmurs; No JVD, RRR Abdominal: NL Sounds; No Tenderness; No Distention, No Hepatosplenomegaly Lines/Tubes/Other Access: Clean, Dry and Intact Peripheral IV Nutrition: Taking PO's Result Diagrams: 04/27/19 05:07 04/27/19 05:07 Microbiology and Other Data: Microbiology 04/26/19 12:57 Aerobic Blood Culture - Preliminary Blood Venous No Growth Day 2 Anaerobic Blood Culture - Preliminary No Growth Day 2 04/26/19 12:57 Aerobic Blood Culture - Preliminary Blood Venous No Growth Day 2 Anaerobic Blood Culture - Preliminary No Growth Day 2 04/26/19 12:22 Urine Culture - Final Urine Assess/Plan/Problems-Billing Assessment: Marycruz Mcadams is a 78 y/o female with history of HTN, HLD, diverticulosis, presented with fever for 2 days, found to have sepsis due to complicated diverticulitis, with possible colovesicular fistula. - Patient Problems (1) Diverticulitis Current Visit: Yes Status: Acute Priority: High Code(s): K57.92 - DVTRCLI OF INTEST, PART UNSP, W/O PERF OR ABSCESS W/O BLEED SNOMED Code(s): 354068254 Comment: - recurrent diverticulitis with suspected colovesicular fistula - reviewed general surgery and urology plans - possible op on Monday (2) Hypertension Current Visit: Yes Status: Acute Priority: Medium Code(s): I10 - ESSENTIAL (PRIMARY) HYPERTENSION SNOMED Code(s): 32677774 Comment: -BP well controlled -continue home med losartan (3) Hyperlipidemia Current Visit: Yes Status: Acute Code(s): E78.5 - HYPERLIPIDEMIA, UNSPECIFIED SNOMED Code(s): 67345032 Comment: -continue fluvastatin (4) DVT prophylaxis Current Visit: Yes Status: Acute Priority: Low Code(s): Z29.9 - ENCOUNTER FOR PROPHYLACTIC MEASURES, UNSPECIFIED SNOMED Code(s): 829359867 Comment: -heparin SC (5) Liver enzyme elevation Current Visit: Yes Status: Acute Priority: Medium Code(s): R74.8 - ABNORMAL LEVELS OF OTHER SERUM ENZYMES SNOMED Code(s): 241967143 Comment: -Will recheck, schedule US liver if elevation continues -Could be developing ascending colangitis, or liver injury due to medications Status and Disposition: Inpatient Medicine.
[2019-04-28] MEDS ORDERED: Losartan TAB* 25 MG PO SCH (19:00)
[2019-04-28] MEDS: FLUVASTATIN PO SCH (20:06)
[2019-04-28] MEDS: LOSARTAN 100 MG PO SCH ×2 (20:13→21:12)
[2019-04-29 05:47] LABS: ABS Lymphocytes 1.9 10^3/ul (1.0-4.8); ABS Monocytes 0.6 10^3/ul (0-0.8); ABS Neutrophils 2.9 10^3/ul (1.5-7.7); Eosinophil % 0.6 %; Hematocrit 24 % (35-47); Hemoglobin 7.9 g/dL (12.0-16.0); Lymphocyte % 35.1 %; Mean Corpuscular HGB Conc 34 g/dL (31-36); Mean Corpuscular Hemoglobin 27 pg (27-31); Mean Corpuscular Volume 81 fL (80-97); Mean Platelet Volume 7.6 fL (7.4-10.4); Platelet Count 273 10^3/uL (150-450); Red Blood Count 2.94 10^6 /uL (3.70-4.87); Red Cell Distribution Width 17 % (10-15); White Blood Count 5.6 10^3/uL (3.5-10.8)
[2019-04-29 05:53] LABS: INR 1.4 (0.82-1.09)
[2019-04-29 06:02] LABS: Albumin 3.1 g/dL (3.2-5.2); Albumin/Globulin Ratio 1.1 (1-3); BUN/Creatinine Ratio 6.6 (8-20); Calcium 8.3 mg/dL (8.6-10.3); EGFR African American 115.4 (>60); EGFR Non-African American 95.4 (>60); Globulin 2.8 g/dL (2-4); Potassium 3.3 mmol/L (3.5-5.0); Total Bilirubin 0.4 mg/dL (0.2-1.0); Total Protein 5.9 g/dL (6.4-8.9)
[2019-04-29] MEDS: ZOSYN 3.375 GM Q8H per EXTENDED INFUSION IVPB SCH ×6 (06:07→22:10)
[2019-04-29] MEDS ORDERED: Potassium Chlor TAB* 20 MEQ TAB.ER PO ONE (07:52)
[2019-04-29] MEDS: Heparin VIAL(*) 5000 UNITS/ML VIAL (FIVE THOUSAND) SUBCUT SCH ×2 (07:57→21:15)
[2019-04-29] MEDS: Potassium Chlor TAB* 20 MEQ TAB.ER PO SCH (08:01)
[2019-04-29] MEDS: NS 0.9% 1000 ML** 1,000 ML IV SCH ×2 (10:21→18:39)
--- NOTE | 2019-04-29 10:26 | PN ---
Subjective Date of Service: 04/29/19 Interval History: Patient is feeling well, no abdominal pain, no fever, no nausea or vomiting. Has long standing hemorrhoid, fresh bleeding per rectum currently, improving. No dizziness. Objective Active Medications: Heparin Sodium (Porcine) (Heparin Vial(*)) 5,000 units SUBCUT Q12HR [facility] Last Admin: 04/29/19 07:57 Dose: 5,000 units Sodium Chloride (Ns 0.9% 1000 Ml) 1,000 mls @ 125 mls/hr IV PER RATE [facility] Last Admin: 04/28/19 14:04 Dose: 125 mls/hr Piperacillin Sod/Tazobactam (Sod 3.375 gm/ Sodium Chloride) 100 mls @ 25 mls/ hr IVPB Q8H [facility] Last Admin: 04/29/19 06:07 Dose: 25 mls/hr Pto Nf Med* Losartan (100mg Tab) 1 admin PO BEDTIME [facility] Last Admin: 04/28/19 21:12 Dose: 1 admin Ondansetron HCl (Zofran Inj*) 4 mg IV Q6H PRN PRN Reason: NAUSEA Last Admin: 04/27/19 05:18 Dose: 4 mg Pharmacy Consult (Zosyn Per Pharmacy*) 1 note FOLLOW UP .ZOSYN PER PHARMACY [facility] Potassium Chloride (Klor Con Er Tab*) 20 meq PO DAILY [facility] Stop: 05/02/19 08:59 Last Admin: 04/29/19 08:01 Dose: 20 meq Vital Signs - 8 hr 04/29/19 04/29/19 04/29/19 03:15 07:15 08:00 Temperature 97.9 F 97.8 F Pulse Rate 69 76 Respiratory 18 20 20 Rate Blood Pressure 114/55 135/65 (mmHg) O2 Sat by Pulse 96 96 96 Oximetry Oxygen Devices in Use Now: None Exam: Appearance: alert, no distress Eyes: No Scleral Icterus Neck: NL Appearance and Movements; NL JVP Respiratory: Clear to Auscultation Cardiovascular: NL Sounds; No Murmurs; No JVD, RRR Abdominal: NL Sounds; No Tenderness; No Distention, No Hepatosplenomegaly Lines/Tubes/Other Access: Clean, Dry and Intact Peripheral IV Nutrition: clear liquid currently, tolerating well Result Diagrams: 04/29/19 05:21 04/29/19 05:21 Microbiology and Other Data: Microbiology 04/26/19 12:57 Aerobic Blood Culture - Preliminary Blood Venous No Growth Day 2 Anaerobic Blood Culture - Preliminary No Growth Day 2 04/26/19 12:57 Aerobic Blood Culture - Preliminary Blood Venous No Growth Day 2 Anaerobic Blood Culture - Preliminary No Growth Day 2 04/26/19 12:22 Urine Culture - Final Urine Assess/Plan/Problems-Billing Assessment: Marycruz Mcadams is a 78 y/o female with history of HTN, HLD, diverticulosis, presented with fever for 2 days, found to have sepsis due to complicated diverticulitis, with possible colovesicular fistula, plan for operation 04/29 - Patient Problems (1) Diverticulitis Current Visit: Yes Status: Acute Priority: High Code(s): K57.92 - DVTRCLI OF INTEST, PART UNSP, W/O PERF OR ABSCESS W/O BLEED SNOMED Code(s): 550528207 Comment: - recurrent diverticulitis with suspected colovesicular fistula - reviewed general surgery and urology plans - possible op on Monday - patient is medically cleared for surgery (2) Liver enzyme elevation Current Visit: Yes Status: Acute Priority: Medium Code(s): R74.8 - ABNORMAL LEVELS OF OTHER SERUM ENZYMES SNOMED Code(s): 026299775 Comment: - US liver today - unknown etiology, sepsis related possibly, will need to trend (3) Hypertension Current Visit: Yes Status: Acute Priority: Medium Code(s): I10 - ESSENTIAL (PRIMARY) HYPERTENSION SNOMED Code(s): 98868294 Comment: -BP well controlled -continue home med losartan (4) Hyperlipidemia Current Visit: Yes Status: Acute Code(s): E78.5 - HYPERLIPIDEMIA, UNSPECIFIED SNOMED Code(s): 28888727 Comment: -continue fluvastatin, hold off due to new trasaminitis (5) DVT prophylaxis Current Visit: Yes Status: Acute Priority: Low Code(s): Z29.9 - ENCOUNTER FOR PROPHYLACTIC MEASURES, UNSPECIFIED SNOMED Code(s): 072607158 Comment: -heparin SC Status and Disposition: Inpatient Medicine. plan for op tomorrow Attestation Documenting Resident: Bernarda Gomez Supervising Physician: Cosme Avila Attending/Supervising Physician Comment: Patient has diverticulitis on CT, plan for resection and backup colostomy tomorrow. LFTs elevated, ?obstructive picture. Will have liver US. Attestation: This service has been performed in part by a resident under the direction of a teaching physician.I, Cosme Avila, performed the service, or was physically present during the critical, or chapman portions of the service, furnished by the resident. I participated in the management of the patient.
--- NOTE | 2019-04-29 12:55 | PN ---
Progress Note - Progress Note Date of Service: 04/29/19 SOAP: Subjective: NAD Sitting comfortably in chair, denies CP, SOB. N/V/D [] Objective: Vital Signs Temp 97.5 F 04/29/19 10:59 Pulse 72 04/29/19 10:59 Resp 16 04/29/19 10:59 BP 130/70 04/29/19 10:59 Pulse Ox 98 04/29/19 10:59 Intake & Output 04/28/19 04/29/19 04/29/19 18:59 06:59 18:59 Intake Total 1910 1206 1265 Output Total 0 Balance 1910 1206 1265 Intake: IV Fluids 100 ABX - ZOSYN 100 IVPB 706 ABX - ZOSYN 110 NS (0.9%) 596 Oral 2125 114 7328 Output: Urine 0 Other: # Bowel Movements 0 Laboratory Tests 04/26/19 04/27/19 04/29/19 12:57 05:07 05:21 WBC 14.4 H 10.8 5.6 Potassium 04/29/19 05:21 WBC Potassium 3.3 L PEX GEN: NAD HEENT: posterior tongue with thrush CHEST: CTAB CVS: RRR ABD: Soft,+ BS's, non tender EXT: Calves soft B/L [] Assessment: 78 yo female with Complicated Diverticulitis, failing conservative management with PO ABX. Low K+ [] Plan: Will need Sigmoid Colectomy, Ureteral Stenting pre op, IV ABX, Clear Liquids now, Bowel Prep Pre op, Replace K+, type and cross. resume swish and swallow for thrush.
--- NOTE | 2019-04-29 15:33 | CONSULT ---
Consult Consult: I briefly saw patient earlier today. Plan is for scheduling a sigmoid colectomy with primary anastomosis and protective ileostomy. Plan is for ureteral stents at time of surgery an case has been discussed with urology. Patient is aware of the planned timing for surgery May 01.
[2019-04-29] MEDS ORDERED: Nystatin SUSPENSION* 100000 UNITS/ML 5 ML UDC SWISH SWAL SCH (17:00)
[2019-04-29] MEDS: Nystatin SUSPENSION* 100000 UNITS/ML 5 ML UDC SWISH SWAL SCH ×2 (17:23→21:14)
[2019-04-29] MEDS: LOSARTAN 100 MG PO SCH (21:14)
[2019-04-30] MEDS: ZOSYN 3.375 GM Q8H per EXTENDED INFUSION IVPB SCH ×6 (05:25→21:51)
[2019-04-30 05:36] LABS: ABS Eosinophils 0.1 10^3/ul (0-0.6); ABS Lymphocytes 1.6 10^3/ul (1.0-4.8); ABS Monocytes 0.6 10^3/ul (0-0.8); ABS Neutrophils 4.3 10^3/ul (1.5-7.7); Eosinophil % 1.5 %; Hematocrit 23 % (35-47); Hemoglobin 7.8 g/dL (12.0-16.0); Lymphocyte % 23.9 %; Mean Corpuscular HGB Conc 34 g/dL (31-36); Mean Corpuscular Hemoglobin 27 pg (27-31); Mean Corpuscular Volume 80 fL (80-97); Mean Platelet Volume 7.3 fL (7.4-10.4); Platelet Count 283 10^3/uL (150-450); Red Blood Count 2.92 10^6 /uL (3.70-4.87); Red Cell Distribution Width 17 % (10-15); White Blood Count 6.7 10^3/uL (3.5-10.8)
[2019-04-30 05:51] LABS: Albumin 2.9 g/dL (3.2-5.2); BUN/Creatinine Ratio 6.5 (8-20); C Reactive Protein 111.36 mg/L (<8.01); EGFR African American 113.2 (>60); EGFR Non-African American 93.6 (>60); Potassium 3.2 mmol/L (3.5-5.0); Total Bilirubin 0.3 mg/dL (0.2-1.0); Total Protein 5.9 g/dL (6.4-8.9)
[2019-04-30] MEDS: NS 0.9% 1000 ML** 1,000 ML IV SCH ×3 (06:15→22:29)
[2019-04-30] MEDS: Heparin VIAL(*) 5000 UNITS/ML VIAL (FIVE THOUSAND) SUBCUT SCH ×2 (07:45→21:53)
[2019-04-30] MEDS: Nystatin SUSPENSION* 100000 UNITS/ML 5 ML UDC SWISH SWAL SCH ×4 (07:45→21:53)
[2019-04-30] MEDS: Potassium Chlor TAB* 20 MEQ TAB.ER PO SCH ×2 (07:45→21:51)
[2019-04-30] MEDS ORDERED: Potassium Chlor TAB* 10 MEQ TAB.ER PO ONE (09:16)
[2019-04-30 09:33] LABS: Magnesium 1.6 mg/dL (1.9-2.7)
[2019-04-30] MEDS ORDERED: Magnesium Sulf 4 GM/100 ML IV* 4,000 MG/100 ML BAG IVPB ONE (10:27)
--- NOTE | 2019-04-30 10:35 | PN ---
Subjective Date of Service: 04/30/19 Interval History: Patient was afebrile overnight. Feeling good. Patient was upset about the discontinuation of her fluvastatin without informing her. I apologized for not informing her this ahead. She would like to know every medication changes we made in the future. She had no nausea or vomiting. Objective Active Medications: Heparin Sodium (Porcine) (Heparin Vial(*)) 5,000 units SUBCUT Q12HR [facility] Last Admin: 04/30/19 07:45 Dose: 5,000 units Sodium Chloride (Ns 0.9% 1000 Ml) 1,000 mls @ 125 mls/hr IV PER RATE [facility] Last Admin: 04/30/19 06:15 Dose: 125 mls/hr Piperacillin Sod/Tazobactam (Sod 3.375 gm/ Sodium Chloride) 100 mls @ 25 mls/ hr IVPB Q8H [facility] Last Admin: 04/30/19 05:25 Dose: 25 mls/hr Magnesium Sulfate (Magnesium Sulf 4 Gm/100 Ml Iv*) 4,000 mg in 100 mls @ 33.333 mls/hr IVPB ONCE ONE Stop: 04/30/19 13:26 Pto Nf Med* Losartan (100mg Tab) 1 admin PO BEDTIME [facility] Last Admin: 04/29/19 21:14 Dose: 1 admin Nystatin (Nystatin Suspension*) 500,000 units SWISH SWAL QID [facility] Stop: 05/06/19 15:37 Last Admin: 04/30/19 07:45 Dose: 500,000 units Ondansetron HCl (Zofran Inj*) 4 mg IV Q6H PRN PRN Reason: NAUSEA Last Admin: 04/27/19 05:18 Dose: 4 mg Pharmacy Consult (Zosyn Per Pharmacy*) 1 note FOLLOW UP .ZOSYN PER PHARMACY [facility] Potassium Chloride (Klor Con Er Tab*) 20 meq PO BID [facility] Stop: 05/03/19 20:59 Vital Signs - 8 hr 04/30/19 04/30/19 04/30/19 03:15 07:15 08:00 Temperature 98.1 F 97.8 F Pulse Rate 61 71 Respiratory 18 18 20 Rate Blood Pressure 116/56 140/67 (mmHg) O2 Sat by Pulse 97 98 98 Oximetry Oxygen Devices in Use Now: None Exam: Appearance: alert, no distress Eyes: No Scleral Icterus Neck: NL Appearance and Movements; NL JVP Respiratory: Clear to Auscultation Cardiovascular: NL Sounds; No Murmurs; No JVD, RRR Abdominal: NL Sounds; No Tenderness; No Distention, No Hepatosplenomegaly Lines/Tubes/Other Access: Clean, Dry and Intact Peripheral IV Nutrition: clear liquid currently, tolerating well Result Diagrams: 05/01/19 06:28 05/01/19 06:28 Microbiology and Other Data: Microbiology 04/26/19 12:57 Aerobic Blood Culture - Preliminary Blood Venous No Growth Day 2 Anaerobic Blood Culture - Preliminary No Growth Day 2 04/26/19 12:57 Aerobic Blood Culture - Preliminary Blood Venous No Growth Day 2 Anaerobic Blood Culture - Preliminary No Growth Day 2 04/26/19 12:22 Urine Culture - Final Urine Assess/Plan/Problems-Billing Assessment: Marycruz Mcadams is a 78 y/o female with history of HTN, HLD, diverticulosis, presented with fever for 2 days, found to have sepsis due to complicated diverticulitis, with possible colovesicular fistula, plan for operation 05/01/18. - Patient Problems (1) Diverticulitis Current Visit: Yes Status: Acute Priority: High Code(s): K57.92 - DVTRCLI OF INTEST, PART UNSP, W/O PERF OR ABSCESS W/O BLEED SNOMED Code(s): 991644598 Comment: - recurrent diverticulitis with suspected colovesicular fistula - reviewed general surgery and urology plans - plan for operation on - patient is medically cleared for surgery - continue IV zosyn while awaiting - need bowel prep tomorrow (2) Liver enzyme elevation Current Visit: Yes Status: Acute Priority: Medium Code(s): R74.8 - ABNORMAL LEVELS OF OTHER SERUM ENZYMES SNOMED Code(s): 748938882 Comment: - US liver showing no abscess - liver function trending down - can restart fluvastatin if LFT keeps improving - unknown etiology, sepsis related possibly, will need to trend (3) Hypertension Current Visit: Yes Status: Acute Priority: Medium Code(s): I10 - ESSENTIAL (PRIMARY) HYPERTENSION SNOMED Code(s): 21270657 Comment: -BP well controlled -continue home med losartan (4) Hypokalemia Current Visit: Yes Status: Acute Code(s): E87.6 - HYPOKALEMIA SNOMED Code( s): 86402221 Comment: - potassium and magnesium replaced - recheck tomorrow (5) Hyperlipidemia Current Visit: Yes Status: Acute Code(s): E78.5 - HYPERLIPIDEMIA, UNSPECIFIED SNOMED Code(s): 45349958 Comment: -restart fluvastatin if LFT keeps downtrending, hold off due to new trasaminitis (6) DVT prophylaxis Current Visit: Yes Status: Acute Priority: Low Code(s): Z29.9 - ENCOUNTER FOR PROPHYLACTIC MEASURES, UNSPECIFIED SNOMED Code(s): 031354411 Comment: -heparin SC Status and Disposition: Inpatient Medicine. plan for op Attestation Documenting Resident: Bernarda Gomez Supervising Physician: Cosme Avila Attending/Supervising Physician Comment: Plan for colectomy for diverticulitis . Bowel prep Monday. LFTs improving, U/S liver reviewed. Attestation: This service has been performed in part by a resident under the direction of a teaching physician.I, Cosme Avila, performed the service, or was physically present during the critical, or chapman portions of the service, furnished by the resident. I participated in the management of the patient.
--- NOTE | 2019-04-30 12:54 | PN ---
Progress Note - Progress Note Date of Service: 04/30/19 SOAP: Subjective: NAD " Slept poorly" no N/V Abd Pain [] Objective: Vital Signs Temp 99.1 F 04/30/19 11:15 Pulse 73 04/30/19 11:15 Resp 17 04/30/19 11:15 BP 137/73 04/30/19 11:15 Pulse Ox 98 04/30/19 11:15 Intake & Output 04/29/19 04/30/19 04/30/19 18:59 06:59 18:59 Intake Total 2004 2059 420 Output Total 0 Balance 2004 2059 420 Intake: IV Fluids 500 1580 ABX - ZOSYN 205 NS (0.9%) 500 1375 Oral 1505 480 420 Output: Urine 0 Other: # Bowel Movements 5 # Voids 4 Laboratory Tests 04/30/19 04/30/19 05:18 05:23 WBC 6.7 Hgb 7.8 L Hct 23 L Potassium 3.2 L PEX GEN: NAD HEENT: posterior tongue with thrush CHEST: CTAB CVS: RRR ABD: Soft,+ BS's, non tender EXT: Calves soft B/L [] Assessment: 78 yo female with Complicated Diverticulitis, failed conservative management with PO ABX. Low K+ [] Plan: Scheduled for a Sigmoid Colectomy, Ureteral Stenting on 05/02/2019. pre op ABX, Clear Liquids. Bowel Prep Pre op, Replace K+, type and cross tomorrow 04/30. continue swish and swallow for thrush.
--- NOTE | 2019-04-30 15:58 | PN ---
Progress Note - Progress Note Date of Service: 04/30/19 SOAP: Subjective: Patient seen and examined. No new complaints Objective: Temp Pulse Resp BP Pulse Ox 99.1 F 73 17 137/73 98 04/30/19 11:15 04/30/19 11:15 04/30/19 11:15 04/30/19 11:15 04/30/19 11:15 Abdomen: Soft, nondistended, nontender Labs noted Assessment: Complicated refractory diverticulitis, concern for bladder involvement. I've recommended sigmoid colectomy with end colostomy versus primary anastomosis and protective ileostomy. I've outlined the details of all these procedures to the patient at length and with pictures. Her daughter was available for the description as well. My intention is to perform a sigmoid colectomy with primary anastomosis and protective ileostomy if possible, and knowing that a Dobson's procedure may be the best procedure after seeing the intraoperative anatomy and inflammation. Patient's questions were answered. She understands the possible competitions of surgery which include but are not limited to bleeding, infection, hernia, injury to adjacent organs, need for additional procedures, prolonged hospitalization, stroke, [place], and . Plan: Continue antibiotics Liquid diet for now. Bowel prep tomorrow. Ostomy nurse consult at and should be marking the patient tomorrow.
[2019-04-30] MEDS: Losartan TAB* 25 MG PO SCH (16:49)
[2019-05-01] MEDS: ZOSYN 3.375 GM Q8H per EXTENDED INFUSION IVPB SCH ×6 (05:33→22:50)
[2019-05-01 06:51] LABS: ABS Eosinophils 0.1 10^3/ul (0-0.6); ABS Lymphocytes 1.5 10^3/ul (1.0-4.8); ABS Monocytes 0.8 10^3/ul (0-0.8); ABS Neutrophils 4.9 10^3/ul (1.5-7.7); Hematocrit 23 % (35-47); Hemoglobin 7.6 g/dL (12.0-16.0); Lymphocyte % 20.9 %; Mean Corpuscular HGB Conc 34 g/dL (31-36); Mean Corpuscular Hemoglobin 27 pg (27-31); Mean Corpuscular Volume 79 fL (80-97); Mean Platelet Volume 7.9 fL (7.4-10.4); Platelet Count 297 10^3/uL (150-450); Red Blood Count 2.84 10^6 /uL (3.70-4.87); Red Cell Distribution Width 17 % (10-15); White Blood Count 7.3 10^3/uL (3.5-10.8)
[2019-05-01 07:07] LABS: BUN/Creatinine Ratio 3.3 (8-20); Calcium 7.9 mg/dL (8.6-10.3); EGFR African American 115.4 (>60); EGFR Non-African American 95.4 (>60); Potassium 3.3 mmol/L (3.5-5.0)
[2019-05-01] MEDS ORDERED: Potassium Chlor TAB* 20 MEQ TAB.ER PO ONE (09:26)
[2019-05-01] MEDS: Potassium Chlor TAB* 20 MEQ TAB.ER PO SCH ×2 (09:53→20:21)
[2019-05-01] MEDS: Nystatin SUSPENSION* 100000 UNITS/ML 5 ML UDC SWISH SWAL SCH ×4 (09:54→20:21)
[2019-05-01] MEDS ORDERED: PEG 3000 GI LAVAGE* 1 GALLON PO ONE (10:00)
--- NOTE | 2019-05-01 10:35 | PN ---
Subjective Date of Service: 05/01/19 Interval History: Patient is doing okay, still having some mild diarrhea with current antibiotics , but tolerable. Starting bowel prep today Objective Active Medications: Heparin Sodium (Porcine) (Heparin Vial(*)) 5,000 units SUBCUT Q12HR [facility] Last Admin: 04/30/19 21:53 Dose: 5,000 units Sodium Chloride (Ns 0.9% 1000 Ml) 1,000 mls @ 125 mls/hr IV PER RATE [facility] Last Admin: 04/30/19 22:29 Dose: 125 mls/hr Piperacillin Sod/Tazobactam (Sod 3.375 gm/ Sodium Chloride) 100 mls @ 25 mls/ hr IVPB Q8H [facility] Last Admin: 05/01/19 05:33 Dose: 25 mls/hr Losartan Potassium (Cozaar Tab*) 100 mg PO QPM [facility] Last Admin: 04/30/19 16:49 Dose: 100 mg Metronidazole (Flagyl) 500 mg PO 1300,1400,2300 [facility] Stop: 05/01/19 23:01 Neomycin Sulfate (Neomycin Tab*) 1,000 mg PO 1300,1400,2300 [facility] Stop: 05/01/19 23:01 Nystatin (Nystatin Suspension*) 500,000 units SWISH SWAL QID [facility] Stop: 05/06/19 15:37 Last Admin: 05/01/19 09:54 Dose: 500,000 units Ondansetron HCl (Zofran Inj*) 4 mg IV Q6H PRN PRN Reason: NAUSEA Last Admin: 04/27/19 05:18 Dose: 4 mg Pharmacy Consult (Zosyn Per Pharmacy*) 1 note FOLLOW UP .ZOSYN PER PHARMACY [facility] Potassium Chloride (Klor Con Er Tab*) 20 meq PO BID [facility] Stop: 05/03/19 20:59 Last Admin: 05/01/19 09:53 Dose: 20 meq Vital Signs - 8 hr 05/01/19 05/01/19 03:15 07:48 Temperature 98.4 F 97.9 F Pulse Rate 66 80 Respiratory 18 18 Rate Blood Pressure 129/62 145/70 (mmHg) O2 Sat by Pulse 95 96 Oximetry Oxygen Devices in Use Now: None Exam: Appearance: alert, no distress Eyes: No Scleral Icterus Neck: NL Appearance and Movements; NL JVP Respiratory: Clear to Auscultation Cardiovascular: NL Sounds; No Murmurs; No JVD, RRR Abdominal: NL Sounds; No Tenderness; No Distention, No Hepatosplenomegaly Lines/Tubes/Other Access: Clean, Dry and Intact Peripheral IV Nutrition: clear liquid currently, tolerating well Result Diagrams: 05/01/19 06:28 05/01/19 06:28 Microbiology and Other Data: Microbiology 04/26/19 12:57 Aerobic Blood Culture - Preliminary Blood Venous No Growth Day 2 Anaerobic Blood Culture - Preliminary No Growth Day 2 04/26/19 12:57 Aerobic Blood Culture - Preliminary Blood Venous No Growth Day 2 Anaerobic Blood Culture - Preliminary No Growth Day 2 04/26/19 12:22 Urine Culture - Final Urine Assess/Plan/Problems-Billing Assessment: Marycruz Mcadams is a 78 y/o female with history of HTN, HLD, diverticulosis, presented with fever for 2 days, found to have sepsis due to complicated diverticulitis, with possible colovesicular fistula, plan for operation 05/01/18. 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 - reviewed general surgery and urology plans - plan for operation on - patient is medically cleared for surgery, bowel prep today - continue IV zosyn while awaiting (2) Liver enzyme elevation Current Visit: Yes Status: Acute Priority: Medium Code(s): R74.8 - ABNORMAL LEVELS OF OTHER SERUM ENZYMES SNOMED Code(s): 351204639 Comment: - US liver showing no abscess - liver function trending down back to normal - unknown etiology, sepsis related possibly - continue fluvastatin since LFT recovered (3) Hypertension Current Visit: Yes Status: Acute Priority: Medium Code(s): I10 - ESSENTIAL (PRIMARY) HYPERTENSION SNOMED Code(s): 06431534 Comment: -BP well controlled (4) Hypokalemia Current Visit: Yes Status: Acute Code(s): E87.6 - HYPOKALEMIA SNOMED Code( s): 12028920 Comment: - potassium and magnesium replaced - recheck tomorrow (5) Hyperlipidemia Current Visit: Yes Status: Acute Code(s): E78.5 - HYPERLIPIDEMIA, UNSPECIFIED SNOMED Code(s): 87603736 Comment: -restart fluvastatin if LFT keeps downtrending, hold off due to new trasaminitis (6) DVT prophylaxis Current Visit: Yes Status: Acute Priority: Low Code(s): Z29.9 - ENCOUNTER FOR PROPHYLACTIC MEASURES, UNSPECIFIED SNOMED Code(s): 999934332 Comment: -heparin SC Status and Disposition: Inpatient Medicine. plan for op Attestation Documenting Resident: Bernarda Gomez Supervising Physician: Cosme Avila Attending/Supervising Physician Comment: Patient prepping for diverticulitis resection. LFTs improving. Rechallenging w/ statin. Zosyn can also elevate LFTs. Attestation: This service has been performed in part by a resident under the direction of a teaching physician.I, Cosme Avila, performed the service, or was physically present during the critical, or chapman portions of the service, furnished by the resident. I participated in the management of the patient.
[2019-05-01 10:49] LABS: Albumin 2.9 g/dL (3.2-5.2); Indirect Bilirubin 0.2 mg/dL (0.3-1.0); Total Bilirubin 0.3 mg/dL (0.2-1.0); Total Protein 5.9 g/dL (6.4-8.9)
[2019-05-01] MEDS: NS 0.9% 1000 ML** 1,000 ML IV SCH ×2 (10:49→16:34)
[2019-05-01] MEDS: Heparin VIAL(*) 5000 UNITS/ML VIAL (FIVE THOUSAND) SUBCUT SCH ×2 (10:59→20:22)
--- NOTE | 2019-05-01 13:19 | PN ---
Progress Note - Progress Note Date of Service: 05/01/19 SOAP: Subjective: NAD, comfortable in chair drinking bowel prep. [] Objective: Vital Signs Temp 98.4 F 05/01/19 11:15 Pulse 77 05/01/19 11:15 Resp 16 05/01/19 11:15 BP 146/76 05/01/19 11:15 Pulse Ox 95 05/01/19 11:15 Intake & Output 04/30/19 05/01/19 05/01/19 18:59 06:59 18:59 Intake Total 1790 2291 110 Output Total 480 Balance 1790 1811 110 Intake: IV Fluids 685 1811 ABX - ZOSYN 110 200 NS (0.9%) 575 1611 IVPB 25 ABX - ZOSYN 25 Oral 1080 480 110 Output: Urine 480 Other: # Voids 8 Laboratory Tests 04/29/19 05/01/19 05/01/19 05:21 06:28 06:28 WBC 7.3 Hgb 7.6 L Hct 23 L Plt Count 297 INR (Anticoag Therapy) 1.40 H Sodium 142 Potassium 3.3 L Chloride 111 Carbon Dioxide 24 BUN 2 L Creatinine 0.61 Est GFR (Non-Af Amer) 95.4 Glucose 102 H PEX GEN: NAD CHEST: CTAB CVS: RRR ABD: Soft,+ BS's, non tender EXT: Calves soft B/L , + edema [] Assessment: 78 yo female with Complicated Diverticulitis, failed conservative management with PO ABX. Low K+, LE Edema [] Plan: Decrease IVF to 75ccc/hr, continue bowel prep now underway, NPO After MN for Sigmoid Colectomy, Ureteral Stenting on 05/02/2019. pre op ABX, Clear Liquids. Replace K+, type and screen for 2 units for tomorrow 05/01. continue swish and swallow for thrush
[2019-05-01] MEDS: metroNIDAZOLE * 500 MG TABLET PO SCH ×3 (13:46→22:50)
[2019-05-01] MEDS: Neomycin TAB* 500 MG PO SCH ×3 (13:46→22:50)
[2019-05-01] MEDS: Losartan TAB* 25 MG PO SCH (17:55)
[2019-05-01] MEDS: Atorvastatin* 10 MG TAB PO SCH (20:20)
[2019-05-02] MEDS: NS 0.9% 1000 ML** 1,000 ML IV SCH ×2 (05:11→20:35)
[2019-05-02] MEDS: ZOSYN 3.375 GM Q8H per EXTENDED INFUSION IVPB SCH ×6 (05:14→23:14)
[2019-05-02 05:16] LABS: ABS Eosinophils 0.1 10^3/ul (0-0.6); ABS Lymphocytes 1.9 10^3/ul (1.0-4.8); ABS Monocytes 0.9 10^3/ul (0-0.8); ABS Neutrophils 5.1 10^3/ul (1.5-7.7); Eosinophil % 0.9 %; Hematocrit 23 % (35-47); Hemoglobin 7.7 g/dL (12.0-16.0); Lymphocyte % 23.4 %; Mean Corpuscular HGB Conc 33 g/dL (31-36); Mean Corpuscular Hemoglobin 27 pg (27-31); Mean Corpuscular Volume 80 fL (80-97); Mean Platelet Volume 7.8 fL (7.4-10.4); Platelet Count 294 10^3/uL (150-450); Red Blood Count 2.87 10^6 /uL (3.70-4.87); Red Cell Distribution Width 17 % (10-15)
[2019-05-02 05:32] LABS: BUN/Creatinine Ratio 5.4 (8-20); Calcium 8.2 mg/dL (8.6-10.3); EGFR African American 127.4 (>60); EGFR Non-African American 105.3 (>60); Potassium 3.5 mmol/L (3.5-5.0)
[2019-05-02] MEDS: Heparin VIAL(*) 5000 UNITS/ML VIAL (FIVE THOUSAND) SUBCUT SCH ×2 (08:19→22:58)
[2019-05-02] MEDS: Potassium Chlor TAB* 20 MEQ TAB.ER PO SCH ×2 (09:15→22:58)
[2019-05-02] MEDS: Nystatin SUSPENSION* 100000 UNITS/ML 5 ML UDC SWISH SWAL SCH ×4 (09:15→23:13)
--- NOTE | 2019-05-02 12:20 | PN ---
Progress Note - Progress Note Date of Service: 05/02/19 SOAP: Subjective: []Pt seen and examined. patient feels well and is ready for surgery. No nausea or vomiting. Continued loose bowel movements. No abdominal pain at this time. Objective: [ Temp Pulse Resp BP Pulse Ox 98.0 F 68 16 137/68 97 05/02/19 07:23 05/02/19 07:23 05/02/19 08:00 05/02/19 07:23 05/02/19 08:00 A and O 3, in no apparent distress. abdomen: Soft, nondistended, nontender. Marked by ostomy nurse. Extremities within normal limits rectal exam not repeated labs noted. Continued anemia Assessment: refractory diverticulitis Plan: exploratory laparotomy and sigmoid colectomy with primary anastomosis, with possible protective loop ileostomy. Patient understands that she may undergo an colostomy depending on the disease at time of surgery. We talked about possibility of bladder involvement and the need for prolonged Espinal catheterization. I discussed the risks, benefits and alternatives to surgery and patient wishes to proceed. We spoke about possible complications whi, infection, abscess formation, need for additional surgery, injury to adjacent organs, prolonged hospitalization, ICU needs, stroke, [place], and even . Patient was marked accordingly. She will continue on preoperative antibiotics. Espinal catheter in OR.
[2019-05-02] MEDS ORDERED: fentaNYL* 50 MCG/ML 5 ML VIAL (250 MCG VIAL) ONE ×2 (14:39→15:56)
[2019-05-02] MEDS ORDERED: Iohexol 180 (CONTRAST) 10 ML SDV IV ONE (14:45)
--- NOTE | 2019-05-02 15:49 | PN ---
Subjective Date of Service: 05/02/19 Interval History: Patient remains well. Passing watery stool with minimal residual so far. Potassium in the morning normal. Objective Active Medications: Atorvastatin Calcium (Lipitor*) 5 mg PO BEDTIME [facility] Last Admin: 05/01/19 20:20 Dose: Not Given Heparin Sodium (Porcine) (Heparin Vial(*)) 5,000 units SUBCUT Q12HR [facility] Last Admin: 05/02/19 08:19 Dose: Not Given Piperacillin Sod/Tazobactam (Sod 3.375 gm/ Sodium Chloride) 100 mls @ 25 mls/ hr IVPB Q8H [facility] Last Admin: 05/02/19 05:14 Dose: 25 mls/hr Sodium Chloride (Ns 0.9% 1000 Ml) 1,000 mls @ 75 mls/hr IV PER RATE [facility] Last Admin: 05/02/19 05:11 Dose: 75 mls/hr Losartan Potassium (Cozaar Tab*) 100 mg PO QPM [facility] Last Admin: 05/01/19 17:55 Dose: 100 mg Nystatin (Nystatin Suspension*) 500,000 units SWISH SWAL QID [facility] Stop: 05/06/19 15:37 Last Admin: 05/02/19 13:13 Dose: Not Given Ondansetron HCl (Zofran Inj*) 4 mg IV Q6H PRN PRN Reason: NAUSEA Last Admin: 04/27/19 05:18 Dose: 4 mg Pharmacy Consult (Zosyn Per Pharmacy*) 1 note FOLLOW UP .ZOSYN PER PHARMACY [facility] Potassium Chloride (Klor Con Er Tab*) 20 meq PO BID [facility] Stop: 05/03/19 20:59 Last Admin: 05/02/19 09:15 Dose: 20 meq Vital Signs - 8 hr 05/02/19 08:00 Respiratory 16 Rate O2 Sat by Pulse 97 Oximetry Oxygen Devices in Use Now: None Exam: Appearance: alert, no distress Eyes: No Scleral Icterus Neck: NL Appearance and Movements; NL JVP Respiratory: Clear to Auscultation Cardiovascular: NL Sounds; No Murmurs; No JVD, RRR Abdominal: NL Sounds; No Tenderness; No Distention, No Hepatosplenomegaly Lines/Tubes/Other Access: Clean, Dry and Intact Peripheral IV Result Diagrams: 05/03/19 06:26 05/02/19 04:35 Microbiology and Other Data: Microbiology 04/26/19 12:57 Aerobic Blood Culture - Preliminary Blood Venous No Growth Day 2 Anaerobic Blood Culture - Preliminary No Growth Day 2 04/26/19 12:57 Aerobic Blood Culture - Preliminary Blood Venous No Growth Day 2 Anaerobic Blood Culture - Preliminary No Growth Day 2 04/26/19 12:22 Urine Culture - Final Urine Assess/Plan/Problems-Billing Assessment: Marycruz Mcadams is a 78 y/o female with history of HTN, HLD, diverticulosis, presented with fever for 2 days, found to have sepsis due to complicated diverticulitis, with possible colovesicular fistula, plan for exploratory laparotomy and sigmoid colectomy with primary anastomosis today. 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 - reviewed general surgery and urology plans - peration today - continue IV zosyn (2) Liver enzyme elevation Current Visit: Yes Status: Acute Priority: Medium Code(s): R74.8 - ABNORMAL LEVELS OF OTHER SERUM ENZYMES SNOMED Code(s): 274726086 Comment: - US liver showing no abscess - liver function trending down back to normal - unknown etiology, sepsis related possibly - continue fluvastatin since LFT recovered (3) Hypertension Current Visit: Yes Status: Acute Priority: Medium Code(s): I10 - ESSENTIAL (PRIMARY) HYPERTENSION SNOMED Code(s): 09760493 Comment: -BP well controlled (4) Hypokalemia Current Visit: Yes Status: Acute Code(s): E87.6 - HYPOKALEMIA SNOMED Code( s): 50208427 Comment: - potassium and magnesium replaced - K normal range today (5) Hyperlipidemia Current Visit: Yes Status: Acute Code(s): E78.5 - HYPERLIPIDEMIA, UNSPECIFIED SNOMED Code(s): 53284266 Comment: -restart fluvastatin (6) DVT prophylaxis Current Visit: Yes Status: Acute Priority: Low Code(s): Z29.9 - ENCOUNTER FOR PROPHYLACTIC MEASURES, UNSPECIFIED SNOMED Code(s): 232853741 Comment: -heparin SC Status and Disposition: Inpatient Medicine. Operation today Attestation Documenting Resident: Bernarda Gomez Supervising Physician: Cosme Avila Attending/Supervising Physician Comment: Patient for diverticular partial colon resection surgery today. Hypokalemia corrected. Attestation: This service has been performed in part by a resident under the direction of a teaching physician.I, Cosme Avila, performed the service, or was physically present during the critical, or chapman portions of the service, furnished by the resident. I participated in the management of the patient.
[2019-05-02] MEDS ORDERED: HYDROmorphone INJ1* 1 MG/ML SYRINGE ONE (18:37)
[2019-05-02] MEDS ORDERED: Sugammadex * 200 MG/2 ML VIAL IV PUSH ONE (18:57)
--- NOTE | 2019-05-02 19:39 | OP ---
Operative Report - Blank - Operative Report Date of Operation: 05/02/19 Note: Operative Note Preoperative Dx: Diverticulitis Postoperative Dx: Diverticulitis Procedure:Sigmoid Colectomy with Loop Ileostomy, Take down of Splenic Flexure, Appendectomy Anesthesia:GET Surgeon:Violette LUCAS, Sydnie LUCAS Assist: Yaritza SANTOS, Shara SANTOS EBL: 300cc Specimen: Sigmoid Colon, Appendix Fluids: 2000 cc NS, 2 units PRBC's Drain: Espinal with 2000 cc Findings: As Above
[2019-05-02] MEDS ORDERED: Naloxone* 0.4 MG/ML 1 ML VIAL IV PUSH PRN ×2 (19:41→20:09)
[2019-05-02 20:00] LABS: Hematocrit 36 % (35-47); Hemoglobin 12.1 g/dL (12.0-16.0)
[2019-05-02] MEDS ORDERED: Morphine PCA ADULT* 5 MG/ML 30 ML PCA SCH (20:00)
[2019-05-02] MEDS: Ondansetron INJ* 2 MG/ML VIAL IV PRN (20:22)
[2019-05-02] MEDS ORDERED: HYDROmorphone PCA* 20 MG/20 ML PCA.SYRING PCA SCH (21:00)
[2019-05-02] MEDS: Atorvastatin* 10 MG TAB PO SCH (22:58)
[2019-05-02] MEDS: Losartan TAB* 25 MG PO SCH (22:58)
--- NOTE | 2019-05-03 02:57 | OP ---
CC: Dr. Marcell Oakes* OPERATIVE REPORT: DATE OF OPERATION: 05/02/19 - Inpatient, SSU 338-01 DATE OF : 44 ATTENDING SURGEON: Volodymyr Morin MD. ANESTHESIOLOGIST: Dr. Jose Maria Quinn. ANESTHESIA: General. PRE-OP DIAGNOSES: 1. Acute diverticulitis. 2. Diverticular abscess. POST-OP DIAGNOSES: 1. Urethral stenosis. 2. Edema of left anterior bladder wall. 3. Normal left retrograde pyelography. OPERATIVE PROCEDURES: 1. Urethral dilation. 2. Cystoscopy. 3. Left retrograde pyelography and insertion of left ureteral stent (6-Congolese). INDICATIONS FOR PROCEDURE: Mrs. Mcadams is a 78-year-old white female who developed recurrent acute diverticulitis and diverticular abscess. She has been on antibiotics for the last several days. She has not had any voiding symptoms of urgency, frequency, burning on urination. She has not had any flank pain. She denies pneumaturia or passage of any particles in her urine. The CT scan showed the diverticular abscess adjacent to the left anterior bladder wall. There was no hydronephrosis and no evidence of any colovesical fistula. Upon the request of Dr. Oakes her general surgeon, a cystoscopy and insertion of left ureteral stent are being performed for easier identification of the left ureter during the planned surgery. PATHOLOGY: There was a tight stenosis of the urethra not allowing more than 17 - Congolese scope inside her bladder. Following the dilation of the urethra, cystoscopy showed normal ureteral orifices. There was a localized area of edema and hyperemia with cobblestone appearance of the left anterior bladder wall. This is the area which should be affected by the adjacent diverticular abscess and corresponds to the findings on the CT scan. The pathology of the bladder looked inflammatory and consistent with the reactive changes to the diverticulitis did not have the appearance of a malignancy. There were no particles noted in her urine, and no air bubbles, and no open sinus noted. The rest of the bladder wall looked normal. Left retrograde pyelography showed no hydronephrosis and normal proximal two- thirds of the ureter. DESCRIPTION OF PROCEDURE: With the patient in the dorsal lithotomy position, the patient was prepped and draped for a cystoscopy. The 20-Congolese cystoscope could not be introduced inside the bladder. Sequential dilation of the urethra was then performed with urethral dilators to size 24-Congolese. That allowed the introduction of the 22-Congolese cystoscope inside her bladder. The bladder was carefully inspected and the findings in the left anterior bladder wall were noted. A flexible tip Hybrid guidewire was introduced into the left ureteral orifice. Retrograde pyelography was performed. A size 6-Congolese stent was then placed with the proximal end coiling in the renal pelvis and the distal end coiling inside the bladder. There was good drainage of contrast from the kidney and no extravasation. A 16-Congolese Espinal catheter was then passed inside the bladder and the balloon inflated with 10 cc of water. The patient tolerated this procedure well. Dr. Oakes then proceeded with the planned laparotomy. I discussed the operative findings on her namely the edema of the bladder wall before he started the surgery. [id number]/CPS #: [id number] MTDD
[2019-05-03] MEDS: ZOSYN 3.375 GM Q8H per EXTENDED INFUSION IVPB SCH ×6 (06:15→23:02)
[2019-05-03 07:04] LABS: ABS Lymphocytes 1.4 10^3/ul (1.0-4.8); ABS Monocytes 0.9 10^3/ul (0-0.8); ABS Neutrophils 14.9 10^3/ul (1.5-7.7); Hematocrit 35 % (35-47); Hemoglobin 11.9 g/dL (12.0-16.0); Mean Corpuscular HGB Conc 34 g/dL (31-36); Mean Corpuscular Hemoglobin 28 pg (27-31); Mean Corpuscular Volume 82 fL (80-97); Mean Platelet Volume 7.8 fL (7.4-10.4); Platelet Count 386 10^3/uL (150-450); Red Cell Distribution Width 17 % (10-15); White Blood Count 17.2 10^3/uL (3.5-10.8)
[2019-05-03 07:15] LABS: INR 1.51 (0.82-1.09)
[2019-05-03 07:23] LABS: Calcium 7.9 mg/dL (8.6-10.3); EGFR African American 117.6 (>60); EGFR Non-African American 97.2 (>60); Potassium 3.4 mmol/L (3.5-5.0)
--- NOTE | 2019-05-03 07:48 | OP ---
AMENDED REPORT NOW INCLUDES DATE OF OPERATION CC: Dr. Yola Chua; Dr. Volodymyr Morin * OPERATIVE REPORT: DATE OF OPERATION: 05/02/19 - ROOM #338 DATE OF : 44 SURGEON: Marcell Oakes MD SUPERVISOR PASTE MIXING: 1. Ángel Otoole MD 2. DANIELLE Soto 3. DANIELLE Rendon ANESTHESIOLOGIST: Dr. Figueroa. ANESTHESIA: General. PRE-OP DIAGNOSIS: Complicated refractory diverticulitis. POST-OP DIAGNOSIS: Complicated refractory diverticulitis. OPERATIVE PROCEDURE: Exploratory laparotomy, sigmoid colectomy with primary anastomosis, and protective loop ileostomy, appendectomy BLOOD LOSS: 300 cc. FLUIDS: 2 L of normal saline and 2 units of packed RBCs. URINE OUTPUT: 2 L of urine output in Espinal bag, but this did include cystoscopy. SPECIMENS: Sigmoid colon. DRAINS: #10 TJ drain, left in the pelvis. Prevena vacuum dressing set to 125 mmHg and ileostomy appliance and Espinal catheter. The patient extubated and transferred to the PACU. COMPLICATIONS: None. INDICATIONS: Ms. Mcadams was evaluated by Urology. She was then brought to the OR, preoperative antibiotics were given, sequential devices were placed on bilateral lower extremities. General anesthesia was induced and the patient underwent a cystoscopy. Please see separate report for details. Left ureteral stent was placed at the time as well as a Espinal. The patient was then placed in a split leg bed and she was positioned appropriately protecting any bony prominences. The lower abdomen hair was clipped and her abdomen was prepped and draped in the standard surgical fashion. It should be noted that the patient started receiving blood transfusion upon the beginning of this procedure. Midline incision was made, this was deepened down throughout layers of the abdomen. Entry into the abdomen was performed, there was normal-appearing small bowel, a large mass in the lower abdomen consistent with inflamed sigmoid colon. device was then used in the abdomen to get good exposure. We then addressed the lateral side wall at the left iliac fossa to try to see where the beginning of this inflammatory mass was. We then extended towards the descending colon and took the white line of Toldt at this site. This allowed us to give some movement to this towards the midline. We then turned our attention to the right side with the small bowel packed up into the right upper quadrant. We were able to identify the cecum. The cecum and appendix were mixed in within this inflammatory area and we freed the appendix with blunt dissection off of the inflammatory mass. We then were able to include the cecum up in the packing at the right upper quadrant and turned our attention to the lesion. The right ovary was also bluntly freed up off of this lesion along with the fimbria on the right. This gave us a little more exposure. We could see bladder and we bluntly pulled the sigmoid colon and this large inflammatory mass off of the dome of the bladder. As it went more posteriorly we could not follow it at this point. It did not appear to be attached to the uterus and at this point we were able to start to see the right portion of the sigmoid mesentery. Its angulation was not quite clear at this point and we turned our attention again to the descending colon. At this point we took and area of the descending colon with good healthy colon and transected with an 80 mm JAIRO stapling device. This allowed us to lift this up anteriorly and with LigaSure device take the mesentery close to the inflammatory mass staying out of the sigmoid colon itself. It should be noted that we did enter a small area of pus pocket. This was drained off, we did not culture this. The ureter at this point was still not identified and for this reason we stayed close on to what we knew as colon and again with finger fracture dissection, we continued down towards the pelvis staying close up on the colon. We entered into a space just to left of the uterus and this is where we found left ovary with a cyst on it. This and its fimbria were also freed away from the inflammatory mass. These did not show the same inflammatory changes; however. At this point, we got into somewhat normal-appearing distal sigmoid colon and entered back into the plane and pulled up the rectum at this point. Additional LigaSure device was used to take the mesentery of the sigmoid colon. When finally we were in an area of normal-appearing rectum, we incised the peritoneum overlying this and then we could lift and pull up on the rectum. We then fired TA-80 stapler across this and then we were able to pass our specimen off. Next, we reviewed the pelvis, there was some oozing, we packed this and then turned our attention to the mesocolon. We then reviewed the sigmoid mesocolon and opened up the retroperitoneum and finally identified left ureter. This was maintained and protected throughout. We did not seem to violate it. At this point, we were able to turn our attention to the descending colon. The splenic flexure was then taken down in its entirety with cautery until we could bring our descending colon down into the pelvis. Next, we removed packing at the pelvis and reviewed the bladder. It showed inflammatory changes, but no through and through injuries that did not require any sutures or debridement. The uterus was within normal limits and the ovaries were also without need for any additional treatment. The appendix was then transected with an 80 mm JAIRO stapling device since that was the one we had opened already and we took the mesoappendix with a LigaSure device, passed this off as specimen. Hemostasis was achieved with sutures and with cautery along the pelvic inlet. Next, the descending colon was reevaluated, periadipose tissue was cleared off from staple line and a pursestring device was then clamped just in from that staple line which was then transected and passed off. We did not send this as specimen. We opened up the descending colon and this appeared normal mucosa with no disease. There were no diverticula. Next, the sizers were used and we ended up using a 28 EA stapler with 4.5 staple length. The anvil was placed in , a pursestring was utilized using a 2-0 Prolene suture and we then turned our attention back to the rectum. Once hemostasis was achieved the EA stapler was advanced. The spike was brought out through the anterior aspect of the rectum and made it with the anvil. We assured its appropriate orientation of the descending colon and created the anastomosis. It was not under tension. The tissue appeared viable. Next, clamping the bowel proximal to this, a leak test was performed inflating air to the rectum. Bubble test was negative and then we allowed the air to escape. Some Surgicel was placed at the deep recesses behind the anastomosis and then a #10 TJ drain was also placed in this site and brought out through a separate stab incision. Next, the distal ileum was identified. We handed off approximately 8 cm. A window was made in the mesentry and a red rubber catheter was placed through this. We then made a disc skin where the ostomy nurse had previously planned for an ileostomy. This disc skin was then deepened down to the fascia overlying the rectus muscle on the right, which was incised and then we brought our small bowel loop ileostomy into this place and we assured its orientation with afferent superior and efferent inferior and turned our attention back to the midline incision. We had copiously irrigated already at this point and we did some more irrigation with the effluent removed. We did check the liver, there were no lesions. The stomach appeared normal. The spleen was normal as well. I did place a small bit of Surgicel where the splenic flexure had been. There had been some oozing, but this was controlled with cauterization. Next, the midline incision was reapproximated with #1 loop PDS suture starting inferior and another suture placed superiorly and tying them in the middle. We then irrigated the wound and reapproximated the skin with skin gun followed by a Prevena negative pressure wound device. Next, we turned our attention to the ileostomy, this was matured with interrupted 2-0 and 3-0 Vicryl sutures and the ostomy appliance was placed at this site. The TJ drain was sutured in with a 3-0 Prolene suture. The patient was woken up and transferred to the PACU in stable condition. [id number]/[facility] #: [id number] MARLEY
[2019-05-03] MEDS: NS 0.9% 1000 ML** 1,000 ML IV SCH (09:02)
[2019-05-03] MEDS: KCL 10 MEQ/50 ML IVPREMIX* 10 MEQ/50 ML BAG IV SCH ×2 (10:31→13:12)
[2019-05-03] MEDS: Ondansetron INJ* 2 MG/ML VIAL IV PRN (10:36)
--- NOTE | 2019-05-03 12:16 | PN ---
Progress Note - Progress Note Date of Service: 05/03/19 SOAP: Subjective: Pt seen and examined. Doing well. minimal pain. no flatus. dizzy at times, on O2 NC ambulated together Objective: Temp Pulse Resp BP Pulse Ox 97.6 F 75 20 134/64 96 05/03/19 11:24 05/03/19 11:24 05/03/19 11:24 05/03/19 11:24 05/03/19 11:24 Intake & Output 05/02/19 05/03/19 05/03/19 22:59 06:59 14:59 Intake Total 2810 0 800 Output Total 1295 460 Balance 1515 -460 800 a and o x3, nad abdo: soft/ distended/ tender, vacuum dressing inplace, no output TJ serosanguinous ostomy pink, edematous labs noted Assessment: POD 1 sigmoid colectomy, ileostomy, appendectomy Plan: ice chips, OOB dvt gi proph f/u path labs in am
--- NOTE | 2019-05-03 17:12 | PN ---
Subjective Date of Service: 05/03/19 Interval History: POD 1 Patient complained of poor sleep overnight as too many people in and out. Otherwise, no fever, not yet passing gas. pain controlled with STOCK CONTROL SUPERVISOR Objective Active Medications: Famotidine (Pepcid Iv*) 20 mg IV SLOW PU BID [facility] Heparin Sodium (Porcine) (Heparin Vial(*)) 5,000 units SUBCUT Q12HR [facility] Piperacillin Sod/Tazobactam (Sod 3.375 gm/ Sodium Chloride) 100 mls @ 25 mls/ hr IVPB Q8H [facility] Last Admin: 05/03/19 15:15 Dose: 25 mls/hr Sodium Chloride (Ns 0.9% 1000 Ml) 1,000 mls @ 75 mls/hr IV PER RATE [facility] Last Admin: 05/03/19 09:02 Dose: 75 mls/hr Hydromorphone HCl (Dilaudid Human Capital Manager*) 20 mg in 20 mls @ 0 mls/hr STOCK CONTROL SUPERVISOR .change Q24H [facility]; Protocol Last Admin: 05/02/19 20:34 Dose: 0.2 mls/hr Naloxone HCl (Narcan*) 0.08 mg IV PUSH .Q2MIN PRN PRN Reason: OVERSEDATION Ondansetron HCl (Zofran Inj*) 4 mg IV Q6H PRN PRN Reason: NAUSEA Last Admin: 05/03/19 10:36 Dose: 4 mg Pharmacy Consult (Zosyn Per Pharmacy*) 1 note FOLLOW UP .ZOSYN PER PHARMACY [facility] Vital Signs - 8 hr 05/03/19 05/03/19 05/03/19 10:00 10:45 11:24 Temperature 97.6 F Pulse Rate 83 75 Respiratory 16 22 20 Rate Blood Pressure 137/65 134/64 (mmHg) O2 Sat by Pulse 95 96 96 Oximetry 05/03/19 05/03/19 12:00 14:00 Temperature Pulse Rate Respiratory 16 16 Rate Blood Pressure (mmHg) O2 Sat by Pulse 94 94 Oximetry Oxygen Devices in Use Now: Nasal Cannula Exam: Appearance: alert, no distress Neck: NL Appearance and Movements; NL JVP Respiratory: Clear to Auscultation Cardiovascular: NL Sounds; No Murmurs; No JVD, RRR Abdominal: Soft, No Tenderness; No Distention. Pelvic drain seen with serosanguinous fluid in bag, ostomy pink, edematous. Lines/Tubes/Other Access: Clean, Dry and Intact Peripheral IV, STOCK CONTROL SUPERVISOR pump, Espinal in situ with bloody urine Result Diagrams: 05/04/19 05:34 05/04/19 05:34 Microbiology and Other Data: Microbiology 04/26/19 12:57 Aerobic Blood Culture - Preliminary Blood Venous No Growth Day 2 Anaerobic Blood Culture - Preliminary No Growth Day 2 04/26/19 12:57 Aerobic Blood Culture - Preliminary Blood Venous No Growth Day 2 Anaerobic Blood Culture - Preliminary No Growth Day 2 04/26/19 12:22 Urine Culture - Final Urine Assess/Plan/Problems-Billing Assessment: Marycruz Mcadams is a 78 y/o female with history of HTN, HLD, diverticulosis, presented with fever for 2 days, found to have sepsis due to complicated diverticulitis, with 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 - Sigmoid colectomy, ielostomy, appendectomy 05/01 - POD1 today - continue IV zosyn - appreciate Gs recs, start iv gi prophylaxis (2) Liver enzyme elevation Current Visit: Yes Status: Acute Priority: Medium Code(s): R74.8 - ABNORMAL LEVELS OF OTHER SERUM ENZYMES SNOMED Code(s): 064100871 Comment: - resolved - US liver showing no abscess - unknown etiology, sepsis related possibly (3) Hypertension Current Visit: Yes Status: Acute Priority: Medium Code(s): I10 - ESSENTIAL (PRIMARY) HYPERTENSION SNOMED Code(s): 62908217 Comment: -BP well controlled (4) Hypokalemia Current Visit: Yes Status: Acute Code(s): E87.6 - HYPOKALEMIA SNOMED Code( s): 70779628 Comment: - potassium and magnesium replaced (5) Hyperlipidemia Current Visit: Yes Status: Acute Code(s): E78.5 - HYPERLIPIDEMIA, UNSPECIFIED SNOMED Code(s): 21526807 Comment: -restart fluvastatin (6) DVT prophylaxis Current Visit: Yes Status: Acute Priority: Low Code(s): Z29.9 - ENCOUNTER FOR PROPHYLACTIC MEASURES, UNSPECIFIED SNOMED Code(s): 239395685 Comment: -heparin SC Status and Disposition: Inpatient Medicine. Attestation Documenting Resident: Bernarda Gomez Supervising Physician: Cosme Avila Attending/Supervising Physician Comment: Patient POD1 from colectomy due to diverticulitis. No flatus yet. Doing well otherwise. Attestation: This service has been performed in part by a resident under the direction of a teaching physician.I, Cosme Avila, performed the service, or was physically present during the critical, or chapman portions of the service, furnished by the resident. I participated in the management of the patient.
[2019-05-03] MEDS: Famotidine IV* 10 MG/ML 2 ML (20 mg) IV SLOW PU SCH (21:26)
[2019-05-03] MEDS: Heparin VIAL(*) 5000 UNITS/ML VIAL (FIVE THOUSAND) SUBCUT SCH (21:27)
[2019-05-04 05:43] LABS: ABS Basophils 0.1 10^3/ul (0-0.2); ABS Eosinophils 0.1 10^3/ul (0-0.6); ABS Lymphocytes 1.5 10^3/ul (1.0-4.8); ABS Monocytes 1.1 10^3/ul (0-0.8); ABS Neutrophils 10.2 10^3/ul (1.5-7.7); Eosinophil % 0.4 %; Hematocrit 34 % (35-47); Hemoglobin 11.3 g/dL (12.0-16.0); Lymphocyte % 11.5 %; Mean Corpuscular HGB Conc 33 g/dL (31-36); Mean Corpuscular Hemoglobin 28 pg (27-31); Mean Corpuscular Volume 83 fL (80-97); Mean Platelet Volume 7.4 fL (7.4-10.4); Platelet Count 399 10^3/uL (150-450); Red Blood Count 4.11 10^6 /uL (3.70-4.87); Red Cell Distribution Width 17 % (10-15)
[2019-05-04 06:02] LABS: BUN/Creatinine Ratio 13.8 (8-20); Calcium 8.5 mg/dL (8.6-10.3); EGFR African American 122.3 (>60); EGFR Non-African American 101.1 (>60); Magnesium 1.7 mg/dL (1.9-2.7); Phosphorus 2.1 mg/dL (2.5-5.0); Potassium 3.2 mmol/L (3.5-5.0)
[2019-05-04] MEDS: NS 0.9% 1000 ML** 1,000 ML IV SCH (06:11)
[2019-05-04] MEDS: ZOSYN 3.375 GM Q8H per EXTENDED INFUSION IVPB SCH ×6 (06:11→23:03)
[2019-05-04] MEDS ORDERED: Magnesium Sulfate IV* 3 GM in NS 0.9% 100 ML* 100 ML IVPB ONE (07:51)
--- NOTE | 2019-05-04 08:34 | PN ---
Progress Note - Progress Note Date of Service: 05/04/19 SOAP: Subjective: Denies pain/N/V. Objective: Vital Signs Temp 97.9 F 05/04/19 07:40 Pulse 96 05/04/19 07:40 Resp 16 05/04/19 07:40 BP 150/65 05/04/19 07:40 Pulse Ox 96 05/04/19 07:40 Gen: in bed; NAD; awake and alert. Abd: dressing intact; ostomy pink with scant gas; TJ is SS; ND; soft mod tender. Intake & Output 05/03/19 05/04/19 05/04/19 18:59 06:59 18:59 Intake Total 1382 616 Output Total 470 960 Balance 912 -344 Intake: IV Fluids 1269 511 NS (0.9%) 1269 511 IVPB 113 105 ABX - ZOSYN 105 KCL 113 Output: TJ #1 20 110 Pitt 450 800 Ileostomy 50 Assessment: POD#2 s/p sigmoidectomy; loop ileostomy. Plan: Clears. Amb. Will d/c pitt tomorrow.
[2019-05-04] MEDS: Heparin VIAL(*) 5000 UNITS/ML VIAL (FIVE THOUSAND) SUBCUT SCH ×2 (08:47→21:07)
[2019-05-04] MEDS: Famotidine IV* 10 MG/ML 2 ML (20 mg) IV SLOW PU SCH ×2 (08:47→20:48)
[2019-05-04] MEDS: NS 0.9% w/ 20 Meq KCL 1000 ML* 1,000 ML IV SCH ×4 (09:42→23:38)
[2019-05-04] MEDS: KCL 10 MEQ/50 ML IVPREMIX* 10 MEQ/50 ML BAG IV SCH ×3 (10:58→13:14)
--- NOTE | 2019-05-04 13:01 | PN ---
Subjective Date of Service: 05/04/19 Interval History: POD 2 Patient was sitting out of bed this morning, feeling comfortable, no abdominal pain. Afebrile overnight. Objective Active Medications: Famotidine (Pepcid Iv*) 20 mg IV SLOW PU BID [facility] Last Admin: 05/04/19 08:47 Dose: 20 mg Heparin Sodium (Porcine) (Heparin Vial(*)) 5,000 units SUBCUT Q12HR [facility] Last Admin: 05/04/19 08:47 Dose: 5,000 units Piperacillin Sod/Tazobactam (Sod 3.375 gm/ Sodium Chloride) 100 mls @ 25 mls/ hr IVPB Q8H [facility] Last Admin: 05/04/19 06:11 Dose: 25 mls/hr Hydromorphone HCl (Dilaudid Thinner Sprayer*) 20 mg in 20 mls @ 0 mls/hr MECHANICAL SYSTEMS DESIGN ENGINEER .change Q24H [facility]; Protocol Last Admin: 05/02/19 20:34 Dose: 0.2 mls/hr Potassium Chloride/Sodium Chloride (Ns 0.9% W/ 20 Meq Kcl 1000 Ml*) 1,000 mls @ 75 mls/hr IV PER RATE [facility] Last Admin: 05/04/19 09:42 Dose: 75 mls/hr Naloxone HCl (Narcan*) 0.08 mg IV PUSH .Q2MIN PRN PRN Reason: OVERSEDATION Ondansetron HCl (Zofran Inj*) 4 mg IV Q6H PRN PRN Reason: NAUSEA Last Admin: 05/03/19 10:36 Dose: 4 mg Pharmacy Consult (Zosyn Per Pharmacy*) 1 note FOLLOW UP .ZOSYN PER PHARMACY [facility] Vital Signs - 8 hr 05/04/19 05/04/19 05/04/19 06:00 07:40 08:00 Temperature 97.9 F Pulse Rate 96 Respiratory 18 16 18 Rate Blood Pressure 150/65 (mmHg) O2 Sat by Pulse 95 96 95 Oximetry 05/04/19 05/04/19 05/04/19 10:25 11:33 12:06 Temperature 98.5 F Pulse Rate 82 Respiratory 18 17 18 Rate Blood Pressure 120/62 (mmHg) O2 Sat by Pulse 95 96 94 Oximetry Intake & Output 05/03/19 05/04/19 05/04/19 18:59 06:59 18:59 Intake Total 1382 616 20 Output Total 470 960 Balance 912 -344 20 Intake: IV Fluids 1269 511 20 NS (0.9%) 1269 511 20 IVPB 113 105 ABX - ZOSYN 105 KCL 113 Output: TJ #1 20 110 Pitt 450 800 Ileostomy 50 Oxygen Devices in Use Now: Nasal Cannula Exam: Appearance: alert, no distress Neck: NL Appearance and Movements; NL JVP Respiratory: Clear to Auscultation Cardiovascular: NL Sounds; No Murmurs; No JVD, RRR Abdominal: Soft, No Tenderness; No Distention, BS+. Pelvic drain seen with serosanguinous fluid in bag, ostomy pink, edematous. Lines/Tubes/Other Access: Clean, Dry and Intact Peripheral IV, MECHANICAL SYSTEMS DESIGN ENGINEER pump, Pitt in situ with bloody urine Result Diagrams: 05/04/19 05:34 05/04/19 05:34 Microbiology and Other Data: Microbiology 04/26/19 12:57 Aerobic Blood Culture - Preliminary Blood Venous No Growth Day 2 Anaerobic Blood Culture - Preliminary No Growth Day 2 04/26/19 12:57 Aerobic Blood Culture - Preliminary Blood Venous No Growth Day 2 Anaerobic Blood Culture - Preliminary No Growth Day 2 04/26/19 12:22 Urine Culture - Final Urine Assess/Plan/Problems-Billing Assessment: Marycruz Mcadams is a 78 y/o female with history of HTN, HLD, diverticulosis, presented with fever for 2 days, found to have sepsis due to diverticulitis, had sigmoid colectomy with loop ileostomy, appendectomy on 05/01. - Patient Problems (1) Diverticulitis Current Visit: Yes Status: Acute Priority: High Code(s): K57.92 - DVTRCLI OF INTEST, PART UNSP, W/O PERF OR ABSCESS W/O BLEED SNOMED Code(s): 501660256 Comment: - recurrent diverticulitis, initially thought to be colovesicular fistula based on imaging - eventually had exp lap 05/01, no colovesicular fistula seen, an inflammatory mass involving cecum and appendix seen, had Sigmoid colectomy with primary anastomosis, loop ielostomy, appendectomy eventually - POD2 05/03 - continue IV zosyn, plan for 10-14 days of tx for complicated diverticulitis (- ) - appreciate Gs input, will start clear liquid diet, plan for pitt removal tomorrow - still on MECHANICAL SYSTEMS DESIGN ENGINEER (2) Liver enzyme elevation Current Visit: Yes Status: Acute Priority: Medium Code(s): R74.8 - ABNORMAL LEVELS OF OTHER SERUM ENZYMES SNOMED Code(s): 177649065 Comment: - resolving - US liver showing no abscess - unknown etiology, sepsis related possibly - last ASt 37, ALT 71, will trend liver function (3) Hypokalemia Current Visit: Yes Status: Acute Code(s): E87.6 - HYPOKALEMIA SNOMED Code( s): 84091894 Comment: - potassium and magnesium replaced - add potassium to IV NS drip today, able to stop drip if tolerated clear liquid diet well (4) Hypertension Current Visit: Yes Status: Acute Priority: Medium Code(s): I10 - ESSENTIAL (PRIMARY) HYPERTENSION SNOMED Code(s): 12069751 Comment: -BP well controlled, continue home losartan (5) Hyperlipidemia Current Visit: Yes Status: Acute Code(s): E78.5 - HYPERLIPIDEMIA, UNSPECIFIED SNOMED Code(s): 16874416 Comment: - Currently holding while LFTs elevated (6) DVT prophylaxis Current Visit: Yes Status: Acute Priority: Low Code(s): Z29.9 - ENCOUNTER FOR PROPHYLACTIC MEASURES, UNSPECIFIED SNOMED Code(s): 046556328 Comment: -heparin SC (7) Full code status Current Visit: Yes Status: Acute Code(s): Z78.9 - OTHER SPECIFIED HEALTH STATUS SNOMED Code(s): 695367507 Status and Disposition: Inpatient Medicine. Start ambulating. Attestation Documenting Resident: Bernarda Gomez Supervising Physician: Heather Figueroa Attending/Supervising Physician Comment: Agree with resident note, exam, assessment and plan. 78F PMH HTN, HLD who presented with complicated diverticulitis thought to fistulizing on admission (though not seen in OR), now POD 2 from colectomy, loop ilesotomy and appendectomy. TJ drain in place, wound vac in place, ostomy appearing healthy. Appreciate GS recommendations for this primarly surgical case #Diverticulitis; Continue Abx for a total of 10-14 days (04/26-05/08 or 14) pending clinical course, could down grade to cipro/flagyl PRN if prepping for d/ c #Surgical status: appreciate pain control and diet advance recommendations by surgery #HTN: Well controlled #HLD: Holding home statin with mild AST/ALT elevations on admission #DVT: SQH Q12, would recommend Q8 for her weight PT OT not in place, may benefit but will wait for further improvement from surgical status Dispo: Pending abx, drain/wound mgmt Attestation: This service has been performed in part by a resident under the direction of a teaching physician.I, Heather Figueroa, performed the service, or was physically present during the critical, or chapman portions of the service, furnished by the resident. I participated in the management of the patient.
[2019-05-05] MEDS: ZOSYN 3.375 GM Q8H per EXTENDED INFUSION IVPB SCH ×6 (06:39→23:46)
[2019-05-05 07:11] LABS: ABS Basophils 0.1 10^3/ul (0-0.2); ABS Eosinophils 0.2 10^3/ul (0-0.6); ABS Lymphocytes 1.5 10^3/ul (1.0-4.8); ABS Monocytes 0.9 10^3/ul (0-0.8); ABS Neutrophils 6.9 10^3/ul (1.5-7.7); Eosinophil % 2.3 %; Hematocrit 31 % (35-47); Hemoglobin 10.6 g/dL (12.0-16.0); Lymphocyte % 15.6 %; Mean Corpuscular HGB Conc 34 g/dL (31-36); Mean Corpuscular Hemoglobin 28 pg (27-31); Mean Corpuscular Volume 83 fL (80-97); Mean Platelet Volume 7.1 fL (7.4-10.4); Platelet Count 390 10^3/uL (150-450); Red Blood Count 3.77 10^6 /uL (3.70-4.87); Red Cell Distribution Width 18 % (10-15); White Blood Count 9.5 10^3/uL (3.5-10.8)
[2019-05-05 07:27] LABS: BUN/Creatinine Ratio 14.6 (8-20); Calcium 7.9 mg/dL (8.6-10.3); EGFR African American 152.1 (>60); EGFR Non-African American 125.7 (>60); Potassium 3.4 mmol/L (3.5-5.0)
--- NOTE | 2019-05-05 08:38 | PN ---
Subjective Date of Service: 05/05/19 Interval History: HD 9 on 05/05 78F PMH HTN, HLD who presented with complicated diverticulitis thought to be fistulizing on admission (to bladder-though not seen in OR) with L ureteral stent placed, now POD 3 from colectomy, loop ilesotomy and appendectomy. TJ drain in place, wound vac in place, ostomy appearing healthy. Appreciate GS recommendations for this primarly surgical case Overnight no acute events, VSS Labs: Leukocytosis resolved, mild hypOK, tolerating liuquid diet TJ Drain: 190cc in 24 hr This morning pt is confused and mildly tearful on not feeling able to return to independence quickly. She is under the impression she is going to the OR for "stent" removal today, though I re confirm in the chart and in the notes there is no indication of this. We discuss at length her surgery and procedures including partial colectomy, loop ilesotomy, L ureteral stent (placed for visualization) and her presence of a urinary cath. We discuss her pitt cath will likely be d/c today which is relieving to her. She has no pain but a "pressure" as if she needs to urinate which is the only reason she is using morphine gtt, she would like to be transitioned away from morphine gtt if possible. Walked yesterday, tolerating clear liquid diet and with hunger. Flatus and liquid stool in ostomy bag. No c/o CP SOB MSK or other issues. Family History: Unchanged from Admission Social History: Unchanged from Admission Past Medical History: Unchanged from Admission Objective Active Medications: Famotidine (Pepcid Iv*) 20 mg IV SLOW PU BID [facility] Last Admin: 05/04/19 20:48 Dose: 20 mg Heparin Sodium (Porcine) (Heparin Vial(*)) 5,000 units SUBCUT Q12HR [facility] Last Admin: 05/04/19 21:07 Dose: 5,000 units Piperacillin Sod/Tazobactam (Sod 3.375 gm/ Sodium Chloride) 100 mls @ 25 mls/ hr IVPB Q8H [facility] Last Admin: 05/05/19 06:39 Dose: 25 mls/hr Hydromorphone HCl (Dilaudid Numerical Control Operator*) 20 mg in 20 mls @ 0 mls/hr OSTEOPATHY DOCTOR .change Q24H [facility]; Protocol Last Admin: 05/02/19 20:34 Dose: 0.2 mls/hr Potassium Chloride/Sodium Chloride (Ns 0.9% W/ 20 Meq Kcl 1000 Ml*) 1,000 mls @ 75 mls/hr IV PER RATE [facility] Last Admin: 05/04/19 23:38 Dose: 75 mls/hr Naloxone HCl (Narcan*) 0.08 mg IV PUSH .Q2MIN PRN PRN Reason: OVERSEDATION Ondansetron HCl (Zofran Inj*) 4 mg IV Q6H PRN PRN Reason: NAUSEA Last Admin: 05/03/19 10:36 Dose: 4 mg Pharmacy Consult (Zosyn Per Pharmacy*) 1 note FOLLOW UP .ZOSYN PER PHARMACY [facility] Vital Signs - 8 hr 05/05/19 05/05/19 05/05/19 00:00 03:00 04:12 Temperature 97.6 F Pulse Rate 88 Respiratory 18 18 18 Rate Blood Pressure 145/64 (mmHg) O2 Sat by Pulse 94 94 97 Oximetry 05/05/19 05/05/19 05/05/19 05:00 07:21 07:27 Temperature 98 F Pulse Rate 85 Respiratory 18 16 16 Rate Blood Pressure 146/68 (mmHg) O2 Sat by Pulse 95 94 Oximetry Oxygen Devices in Use Now: Nasal Cannula Appearance: Mildly anxios woman in NAD Eyes: No Scleral Icterus Ears/Nose/Mouth/Throat: NL Teeth, Lips, Gums Neck: NL Appearance and Movements; NL JVP Respiratory: Symmetrical Chest Expansion and Respiratory Effort, Clear to Auscultation Cardiovascular: NL Sounds; No Murmurs; No JVD, RRR Abdominal: - - Tj wound vac and ostomy in place, soft NT Lymphatic: No Cervical Adenopathy Extremities: No Edema Skin: No Rash or Ulcers Neurological: Alert and Oriented x 3 Result Diagrams: 05/05/19 06:52 05/05/19 06:55 Microbiology and Other Data: Microbiology 04/26/19 12:57 Aerobic Blood Culture - Preliminary Blood Venous No Growth Day 2 Anaerobic Blood Culture - Preliminary No Growth Day 2 04/26/19 12:57 Aerobic Blood Culture - Preliminary Blood Venous No Growth Day 2 Anaerobic Blood Culture - Preliminary No Growth Day 2 04/26/19 12:22 Urine Culture - Final Urine Assess/Plan/Problems-Billing Assessment: 78F PMH HTN, HLD who presented with complicated diverticulitis thought to fistulizing on admission (though not seen in OR), now POD 3 from colectomy, loop ilesotomy and appendectomy and L ureteral stent placement, TJ drain in place, wound vac in place, ostomy appearing healthy. Appreciate recommendations for this primarly surgical case - Patient Problems (1) Diverticulitis Current Visit: Yes Status: Acute Priority: High Code(s): K57.92 - DVTRCLI OF INTEST, PART UNSP, W/O PERF OR ABSCESS W/O BLEED SNOMED Code(s): 712451803 Comment: - Recurrent diverticulitis, initially thought to be colovesicular fistula based on imaging, though no evidence in ex lap sigmoid colectomy with primary anastomosis, loop ielostomy, appendectomy eventually as well as L ureteral stent placed - POD3 05/05 - continue IV zosyn, plan for 10-14 days of tx for complicated diverticulitis (- ), could descalate to Cipro/Flagyl to d/c home - appreciate general surgery input who manage lines and tubes - still on OSTEOPATHY DOCTOR (2) Ileostomy in place Current Visit: Yes Status: Acute Code(s): Z93.2 - ILEOSTOMY STATUS SNOMED Code(s): 336994999 Comment: - Pain control per general surgery (3) Liver enzyme elevation Current Visit: Yes Status: Acute Priority: Medium Code(s): R74.8 - ABNORMAL LEVELS OF OTHER SERUM ENZYMES SNOMED Code(s): 481827237 Comment: - resolving, recheck AM labs (4) Hypokalemia Current Visit: Yes Status: Acute Code(s): E87.6 - HYPOKALEMIA SNOMED Code( s): 27138758 Comment: - potassium and magnesium replaced - K in IVF which is continued (5) Hypertension Current Visit: Yes Status: Acute Priority: Medium Code(s): I10 - ESSENTIAL (PRIMARY) HYPERTENSION SNOMED Code(s): 42442039 Comment: -BP well controlled, continue home losartan (6) Hyperlipidemia Current Visit: Yes Status: Acute Code(s): E78.5 - HYPERLIPIDEMIA, UNSPECIFIED SNOMED Code(s): 17824046 Comment: - Currently statin holding while LFTs elevated (7) DVT prophylaxis Current Visit: Yes Status: Acute Priority: Low Code(s): Z29.9 - ENCOUNTER FOR PROPHYLACTIC MEASURES, UNSPECIFIED SNOMED Code(s): 557044797 Comment: - [facility] (8) Full code status Current Visit: Yes Status: Acute Code(s): Z78.9 - OTHER SPECIFIED HEALTH STATUS SNOMED Code(s): 486593897 Status and Disposition: Inpatient Medicine, GS following Diet Clears PT OT ordered Case Mgmt: Pending gen surg decision for dispo
[2019-05-05] MEDS: Famotidine IV* 10 MG/ML 2 ML (20 mg) IV SLOW PU SCH ×2 (09:39→19:39)
[2019-05-05] MEDS: Heparin VIAL(*) 5000 UNITS/ML VIAL (FIVE THOUSAND) SUBCUT SCH ×2 (09:39→21:10)
--- NOTE | 2019-05-05 09:45 | PN ---
Progress Note - Progress Note Date of Service: 05/05/19 SOAP: Subjective: C/o "pressure" relieved by the LIVE GAMES DEALER. No N/V. Anxious to have pitt out. Objective: Vital Signs Temp 98 F 05/05/19 07:21 Pulse 85 05/05/19 07:21 Resp 16 05/05/19 07:27 BP 146/68 05/05/19 07:21 Pulse Ox 94 05/05/19 07:21 Gen: NAD Abd: ostomy pink with scant gas; dressing intact; TJ serous; distended, soft, mildly tender. Intake & Output 05/04/19 05/05/19 05/05/19 17:59 06:59 18:59 Intake Total Output Total Balance Intake: IV Fluids NS (0.9%) NS (0.9%) 20 meq KCL IVPB ABX - ZOSYN Oral Output: TJ #1 Pitt Laboratory Results - last 24 hr 05/02/19 05/02/19 05/05/19 21:52 21:52 06:52 WBC 9.5 RBC 3.77 Hgb 10.6 L Hct 31 L MCV 83 MCH 28 MCHC 34 RDW 18 H Plt Count 390 MPV 7.1 L Neut % (Auto) 72.2 Lymph % (Auto) 15.6 [place] % (Auto) 9.3 Eos % (Auto) 2.3 Baso % (Auto) 0.6 Absolute Neuts (auto) 6.9 Absolute Lymphs (auto) 1.5 Absolute Monos (auto) 0.9 H Absolute Eos (auto) 0.2 Absolute Basos (auto) 0.1 Absolute Nucleated RBC 0.0 Nucleated RBC % 0.0 Sodium Potassium Chloride Carbon Dioxide Anion Gap BUN Creatinine Est GFR ( Amer) Est GFR (Non-Af Amer) BUN/Creatinine Ratio Glucose Calcium Reaction Interpretation 05/05/19 06:55 WBC RBC Hgb Hct MCV MCH MCHC RDW Plt Count MPV Neut % (Auto) Lymph % (Auto) [place] % (Auto) Eos % (Auto) Baso % (Auto) Absolute Neuts (auto) Absolute Lymphs (auto) Absolute Monos (auto) Absolute Eos (auto) Absolute Basos (auto) Absolute Nucleated RBC Nucleated RBC % Sodium 138 Potassium 3.4 L Chloride 105 Carbon Dioxide 28 Anion Gap 5 BUN 7 Creatinine 0.48 L Est GFR ( Amer) 152.1 Est GFR (Non-Af Amer) 125.7 BUN/Creatinine Ratio 14.6 Glucose 95 Calcium 7.9 L Reaction Interpretation Active Medications Generic Name Dose Route Start Last Admin Trade Name Freq PRN Reason Stop Dose Admin Famotidine 20 mg 05/03/19 21:00 05/04/19 20:48 Pepcid Iv* IV SLOW PU 20 mg BID SENG Administration Heparin Sodium (Porcine) 5,000 units 05/03/19 22:00 05/04/19 21:07 Heparin Vial(*) SUBCUT 5,000 units Q12HR SENG Administration Piperacillin Sod/Tazobactam 100 mls @ 25 mls/hr 04/26/19 22:30 05/05/19 06:39 Sod 3.375 gm/ Sodium Chloride IVPB 25 mls/hr Q8H SENG Administration Hydromorphone HCl 20 mg in 20 mls @ 0 mls/hr 05/02/19 21:00 05/02/19 20:34 Dilaudid Cable Installation Manager* LIVE GAMES DEALER 0.2 mls/hr .change Q24H SENG Administration Protocol Per Protocol Potassium Chloride/Sodium Chloride 1,000 mls @ 75 mls/hr 05/04/19 07:54 05/03 23:38 Ns 0.9% W/ 20 Meq Kcl 1000 Ml* IV 75 mls/hr PER RATE SENG Administration Naloxone HCl 0.08 mg 05/02/19 20:09 Narcan* IV PUSH .Q2MIN PRN OVERSEDATION Ondansetron HCl 4 mg 04/27/19 05:01 05/03/19 10:36 Zofran Inj* IV 4 mg Q6H PRN Administration NAUSEA Pharmacy Consult 1 note 04/26/19 22:00 Zosyn Per Pharmacy* FOLLOW UP .ZOSYN PER PHARMACY [facility] Assessment: POD#3 s/p sigmoidectomy/loop ileostomy. Resolving ileus. Plan: Cont clears. Cont Zosyn. Cont IVF/LIVE GAMES DEALER. D/c pitt/stent. Ambulate/pulm toilet.
[2019-05-05] MEDS: Ondansetron INJ* 2 MG/ML VIAL IV PRN ×2 (13:32→19:39)
[2019-05-05] MEDS: NS 0.9% w/ 20 Meq KCL 1000 ML* 1,000 ML IV SCH ×2 (13:47)
[2019-05-06] MEDS: NS 0.9% w/ 20 Meq KCL 1000 ML* 1,000 ML IV SCH ×2 (03:01)
[2019-05-06] MEDS: Ondansetron INJ* 2 MG/ML VIAL IV PRN (03:15)
[2019-05-06 05:27] LABS: Urine Appearance Cloudy; Urine Bilirubin Negative (Negative); Urine Blood 2+ (Negative); Urine Color Yellow; Urine Glucose Negative (Negative); Urine Ketones 1+ (Negative); Urine Nitrite Negative (Negative); Urine Protein Negative (Negative); Urine Specific Gravity 1.014 (1.010-1.030); Urine Urobilinogen Negative (Negative)
[2019-05-06 05:29] LABS: Urine Bacteria Absent (Absent); Urine Red Blood Cell 3+(>10/hpf) (Absent); Urine Squamous Epithelial Cell Present (Absent); Urine White Blood Cell Trace(0-5/hpf) (Absent)
[2019-05-06] MEDS: ZOSYN 3.375 GM Q8H per EXTENDED INFUSION IVPB SCH ×6 (05:53→22:28)
[2019-05-06 07:47] LABS: ABS Basophils 0.1 10^3/ul (0-0.2); ABS Eosinophils 0.1 10^3/ul (0-0.6); ABS Lymphocytes 1.3 10^3/ul (1.0-4.8); ABS Monocytes 0.7 10^3/ul (0-0.8); ABS Neutrophils 6.7 10^3/ul (1.5-7.7); Eosinophil % 1.5 %; Hematocrit 34 % (35-47); Hemoglobin 11.3 g/dL (12.0-16.0); Lymphocyte % 14.2 %; Mean Corpuscular HGB Conc 33 g/dL (31-36); Mean Corpuscular Hemoglobin 28 pg (27-31); Mean Corpuscular Volume 83 fL (80-97); Platelet Count 413 10^3/uL (150-450); Red Cell Distribution Width 17 % (10-15); White Blood Count 8.8 10^3/uL (3.5-10.8)
[2019-05-06 08:03] LABS: Albumin 2.8 g/dL (3.2-5.2); Albumin/Globulin Ratio 0.9 (1-3); BUN/Creatinine Ratio 10.6 (8-20); Calcium 8.1 mg/dL (8.6-10.3); EGFR African American 155.9 (>60); EGFR Non-African American 128.8 (>60); Globulin 3.1 g/dL (2-4); Potassium 3.4 mmol/L (3.5-5.0); Total Bilirubin 0.5 mg/dL (0.2-1.0); Total Protein 5.9 g/dL (6.4-8.9)
--- NOTE | 2019-05-06 08:07 | PN ---
Subjective Date of Service: 05/06/19 Interval History: HD 10 on 05/05 78F PMH HTN, HLD who presented with complicated diverticulitis thought to be fistulizing on admission (to bladder-though not seen in OR) with L ureteral stent placed, now POD 4 from colectomy, loop ilesotomy and appendectomy. TJ drain in place, wound vac in place, ostomy appearing healthy. Appreciate recommendations for this primarly surgical case Overnight. c/o nausea and indigestion after eating broth, abated with Pepcid, Vitals-mild HTN Labs: Wholly normal save for stable hypoK TJ Drain: 225cc in 24 hr PHYSICAL DESIGN ENGINEER: Still on, reports using infrequently. This morning, seen resting comfortably, some anxiety about advancing diet and her nausea, though she has no complaints at present, all nausea resolved. No GI pain, continues to use morphine gtt, gas and stool in ostomy. Good UOP, ambulating freely. Family History: Unchanged from Admission Social History: Unchanged from Admission Past Medical History: Unchanged from Admission Objective Active Medications: Famotidine (Pepcid Iv*) 20 mg IV SLOW PU BID [facility] Last Admin: 05/05/19 19:39 Dose: 20 mg Heparin Sodium (Porcine) (Heparin Vial(*)) 5,000 units SUBCUT Q12HR [facility] Last Admin: 05/05/19 21:10 Dose: 5,000 units Piperacillin Sod/Tazobactam (Sod 3.375 gm/ Sodium Chloride) 100 mls @ 25 mls/ hr IVPB Q8H [facility] Last Admin: 05/06/19 05:53 Dose: 25 mls/hr Hydromorphone HCl (Dilaudid Inclusion Special Education Teacher*) 20 mg in 20 mls @ 0 mls/hr PHYSICAL DESIGN ENGINEER .change Q24H [facility]; Protocol Last Admin: 05/02/19 20:34 Dose: 0.2 mls/hr Potassium Chloride/Sodium Chloride (Ns 0.9% W/ 20 Meq Kcl 1000 Ml*) 1,000 mls @ 75 mls/hr IV PER RATE [facility] Last Admin: 05/06/19 03:01 Dose: 75 mls/hr Naloxone HCl (Narcan*) 0.08 mg IV PUSH .Q2MIN PRN PRN Reason: OVERSEDATION Ondansetron HCl (Zofran Inj*) 4 mg IV Q6H PRN PRN Reason: NAUSEA Last Admin: 05/06/19 03:15 Dose: 4 mg Pharmacy Consult (Zosyn Per Pharmacy*) 1 note FOLLOW UP .ZOSYN PER PHARMACY [facility] Vital Signs - 8 hr 05/06/19 05/06/19 05/06/19 02:26 03:32 04:18 Temperature 98.5 F Pulse Rate 78 Respiratory 17 16 17 Rate Blood Pressure 156/79 (mmHg) O2 Sat by Pulse 93 98 96 Oximetry 05/06/19 05/06/19 05/06/19 06:56 06:58 07:48 Temperature 98.4 F Pulse Rate 72 Respiratory 16 16 24 Rate Blood Pressure 155/70 (mmHg) O2 Sat by Pulse 97 97 94 Oximetry Oxygen Devices in Use Now: OxyMask Appearance: Well woman NAD Eyes: No Scleral Icterus, PERRLA Ears/Nose/Mouth/Throat: NL Teeth, Lips, Gums, Mucous Membranes Moist Neck: NL Appearance and Movements; NL JVP Respiratory: Symmetrical Chest Expansion and Respiratory Effort, Clear to Auscultation Cardiovascular: NL Sounds; No Murmurs; No JVD, RRR Abdominal: - - Soft NT ND, ostomy with stool, TJ drain CDI, wound vac CDI Lymphatic: No Cervical Adenopathy Extremities: No Edema Skin: No Rash or Ulcers Neurological: Alert and Oriented x 3 Result Diagrams: 05/06/19 07:38 05/06/19 07:38 Microbiology and Other Data: Microbiology 04/26/19 12:57 Aerobic Blood Culture - Preliminary Blood Venous No Growth Day 2 Anaerobic Blood Culture - Preliminary No Growth Day 2 04/26/19 12:57 Aerobic Blood Culture - Preliminary Blood Venous No Growth Day 2 Anaerobic Blood Culture - Preliminary No Growth Day 2 04/26/19 12:22 Urine Culture - Final Urine Assess/Plan/Problems-Billing Assessment: 78F PMH HTN, HLD who presented with complicated diverticulitis thought to fistulizing on admission (though not seen in OR), now POD 4 from colectomy, loop ilesotomy and appendectomy and L ureteral stent placement, TJ drain in place, wound vac in place, ostomy appearing healthy. 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 based on imaging, though no evidence in ex lap sigmoid colectomy with primary anastomosis, loop ielostomy, appendectomy eventually as well as L ureteral stent placed - POD4 05/05 - continue IV zosyn, plan for 10-14 days of tx for complicated diverticulitis (- ), could descalate to Cipro/Flagyl to d/c home if surgery feels appropriate - appreciate general surgery input who manage lines and tubes - still on PHYSICAL DESIGN ENGINEER, though with dimished use (2) Ileostomy in place Current Visit: Yes Status: Acute Code(s): Z93.2 - ILEOSTOMY STATUS SNOMED Code(s): 724611693 Comment: - Pain control per general surgery, she is likely stable to be transferred off the PHYSICAL DESIGN ENGINEER (3) Hypokalemia Current Visit: Yes Status: Acute Code(s): E87.6 - HYPOKALEMIA SNOMED Code( s): 89661952 Comment: - potassium and magnesium replaced - K in IVF which is continued (4) Hypertension Current Visit: Yes Status: Acute Priority: Medium Code(s): I10 - ESSENTIAL (PRIMARY) HYPERTENSION SNOMED Code(s): 36273240 Comment: -BP mildly high pre medication, restart home losartan (5) Hyperlipidemia Current Visit: Yes Status: Acute Code(s): E78.5 - HYPERLIPIDEMIA, UNSPECIFIED SNOMED Code(s): 22841650 Comment: - Currently statin holding while LFTs elevated (6) DVT prophylaxis Current Visit: Yes Status: Acute Priority: Low Code(s): Z29.9 - ENCOUNTER FOR PROPHYLACTIC MEASURES, UNSPECIFIED SNOMED Code(s): 758811827 Comment: - [facility] (7) Full code status Current Visit: Yes Status: Acute Code(s): Z78.9 - OTHER SPECIFIED HEALTH STATUS SNOMED Code(s): 055154088 Status and Disposition: Inpatient Medicine, GS following Diet Clears PT OT ordered Case Mgmt: Pending gen surg decision for dispo
[2019-05-06] MEDS ORDERED: Magnesium Sulfate 1 GM IV* 1 GM/100 ML BAG IV ONE (08:50)
[2019-05-06] MEDS ORDERED: Potassium Phosphate IV* 5 MMOLE in NS 0.9% 250 ML* 250 ML IVPB ONE (08:58)
[2019-05-06] MEDS ORDERED: Morphine INJ* 2 MG/ML 1 ML SYRINGE (TWO MG - NEW SYRINGE VERSION) IV PRN (09:06)
[2019-05-06] MEDS ORDERED: oxyCODONE/Acetamin 5/325 MG* TAB PO PRN (09:07)
--- NOTE | 2019-05-06 09:12 | PN ---
Progress Note - Progress Note Date of Service: 05/06/19 SOAP: Subjective: Patient seen and examined. Complaining of severe nausea yesterday. No vomiting. Nausea control with 2 doses of Zofran. Patient was utilizing HAULAGE ENGINE OPERATOR during her nausea episodes. Patient denies any abdominal pain. No flatus per rectum. Fair appetite. No shortness of breath or chest pain. Ambulating well. Objective: Temp Pulse Resp BP Pulse Ox 98.4 F 72 24 155/70 94 05/06/19 07:48 05/06/19 07:48 05/06/19 07:48 05/06/19 07:48 05/06/19 07:48 Intake & Output 05/05/19 05/06/19 05/06/19 22:59 06:59 14:59 Intake Total 200 1310 Output Total 1650 1105 480 Balance -1450 205 -480 Alert and oriented 3, in no apparent distress lungs clear to auscultation bilaterally abdomen: Soft, mild distention, tender at the incision. Vacuum dressing in place. TJ with increased output that is serous with some dark discoloration possibly consistent with use of Surgicel. Ileostomy functioning with gas and liquid output. Extremities within normal limits. Labs reviewed pathology pending Assessment: postop day 4, sigmoid colectomy, appendectomy, loop ileostomy. Hemodynamically stable. Resolving ileus. Plan: DC HAULAGE ENGINE OPERATOR. Oral pain meds. Antinausea meds. GI and DVT prophylaxis. Replete electrolytes. Antibiotics for 3 more days. Follow-up pathology. Ileostomy training. DC IV fluids. Full liquid diet for now. Continue vacuum dressing for now, to be changed on Monday.
[2019-05-06] MEDS: Losartan TAB* 25 MG PO SCH (10:25)
[2019-05-06] MEDS: Heparin VIAL(*) 5000 UNITS/ML VIAL (FIVE THOUSAND) SUBCUT SCH ×2 (10:26→17:28)
[2019-05-06] MEDS: Famotidine IV* 10 MG/ML 2 ML (20 mg) IV SLOW PU SCH ×2 (10:26→22:07)
[2019-05-06] MEDS: KCL 20 MEQ/100 ML IVPREMIX* 20 MEQ/100 ML BAG IV SCH ×2 (11:05→13:08)
[2019-05-06 21:51] LABS: Calcium 8.7 mg/dL (8.6-10.3); EGFR African American 145.1 (>60); Phosphorus 1.5 mg/dL (2.5-5.0); Potassium 3.8 mmol/L (3.5-5.0)
[2019-05-07] MEDS: Heparin VIAL(*) 5000 UNITS/ML VIAL (FIVE THOUSAND) SUBCUT SCH ×3 (00:29→17:34)
[2019-05-07 05:57] LABS: Albumin 2.8 g/dL (3.2-5.2); BUN/Creatinine Ratio 8.3 (8-20); Calcium 8.4 mg/dL (8.6-10.3); EGFR African American 152.1 (>60); EGFR Non-African American 125.7 (>60); Globulin 2.9 g/dL (2-4); Magnesium 1.8 mg/dL (1.9-2.7); Phosphorus 2.3 mg/dL (2.5-5.0); Potassium 3.4 mmol/L (3.5-5.0); Total Bilirubin 0.5 mg/dL (0.2-1.0); Total Protein 5.7 g/dL (6.4-8.9)
[2019-05-07] MEDS: ZOSYN 3.375 GM Q8H per EXTENDED INFUSION IVPB SCH ×6 (06:10→22:50)
[2019-05-07] MEDS: Famotidine IV* 10 MG/ML 2 ML (20 mg) IV SLOW PU SCH ×2 (09:45→21:35)
[2019-05-07] MEDS: Acetaminophen TAB* 325 MG PO PRN ×2 (09:45→22:55)
[2019-05-07] MEDS: Losartan TAB* 25 MG PO SCH (09:46)
--- NOTE | 2019-05-07 11:47 | PN ---
Progress Note - Progress Note Date of Service: 05/07/19 Note: Surgery Progress: S: POD #5. Had some nausea this a.m.; no vomiting. Otherwise tolerating full liqs well (had about 1/2 her tray this a.m.). Ambulating well. Learning ostomy care. Only req'd Tylenol for pain. O: Vital Signs - 8 hr 05/07/19 05/07/19 05/07/19 07:36 08:00 11:10 Temperature 98.2 F 99.6 F Pulse Rate 61 79 Respiratory 16 16 16 Rate Blood Pressure 153/78 135/70 (mmHg) O2 Sat by Pulse 97 96 Oximetry Intake and Output Last 24 Hours 05/05/19 05/06/19 05/07/19 05/08/19 06:59 06:59 06:59 06:59 Intake Total 1510 2240 540 Output Total 2975 5145 1035 Balance -1465 -2905 -495 Intake: IV Fluids 980 125 NS (0.9%) 980 NS (0.9%) 20 meq KCL 125 IVPB 180 370 220 ABX - ZOSYN 180 110 220 potassium phosphate 260 Oral 350 1745 320 Output: TJ #1 225 200 35 Urine 2255 4370 1000 Espinal Ileostomy 495 575 Other: Estimated Void Small # Voids 1 Gen: appears comfortable; NAD Heart: reg Lungs: clear Abd: soft; nontender to palp; TJ light, clear serous; Preveena in place Extr: no edema Labs: Laboratory Tests 05/07/19 05:26 Potassium 3.4 L Phosphorus 2.3 L Magnesium 1.8 L A: s/p sigmoid colectomy; ileostomy, doing well P: discussed w/ Dr. Oakes; prob d/c 05/08; will replete K,Mg and PO4
[2019-05-07] MEDS ORDERED: Magnesium Sulfate 2 GM IV* 2 GM/50 ML BAG IVPB ONE (12:04)
--- NOTE | 2019-05-07 12:59 | PN ---
Subjective Date of Service: 05/07/19 Interval History: HD 11 on 05/06 78F PMH HTN, HLD who presented with complicated diverticulitis thought to be fistulizing on admission (to bladder-though not seen in OR) with L ureteral stent placed, now POD 5 from colectomy, loop ilesotomy and appendectomy. TJ drain in place, wound vac in place, ostomy appearing healthy. Appreciate GS recommendations for this primarly surgical case Overnight, no acute events, VSS Labs: mag-repleted, hypoK-repleted, phos borderline low TJ Drain: 35cc in 24 hr This morning, seen resting comfortably, eager to go home, but feeling better. Only tylenol for pain. +flatus and stool in ostomy,, reports frequent urination but no dysuria hematuria. No CP, SOB, GI or MSK complaints. Tolerating full liquids Family History: Unchanged from Admission Social History: Unchanged from Admission Past Medical History: Unchanged from Admission Objective Active Medications: Acetaminophen (Tylenol Tab*) 650 mg PO Q6H PRN PRN Reason: MILD PAIN or TEMP > 100.4 Last Admin: 05/07/19 09:45 Dose: 650 mg Famotidine (Pepcid Iv*) 20 mg IV SLOW PU BID [facility] Last Admin: 05/07/19 09:45 Dose: 20 mg Heparin Sodium (Porcine) (Heparin Vial(*)) 5,000 units SUBCUT Q8H [facility] Last Admin: 05/07/19 09:45 Dose: 5,000 units Piperacillin Sod/Tazobactam (Sod 3.375 gm/ Sodium Chloride) 100 mls @ 25 mls/ hr IVPB Q8H [facility] Last Admin: 05/07/19 06:10 Dose: 25 mls/hr Magnesium Sulfate (Magnesium Sulfate 2 Gm Iv*) 2 gm in 50 mls @ 50 mls/hr IVPB ONCE ONE Stop: 05/07/19 13:03 Potassium Phosphate 10 mmole/ (Sodium Chloride) 253.3333 mls @ 42 mls/hr IVPB ONCE ONE Stop: 05/07/19 19:01 Losartan Potassium (Cozaar Tab*) 100 mg PO DAILY [facility] Last Admin: 05/07/19 09:46 Dose: 100 mg Morphine Sulfate (Morphine Inj (Syringe))*) 2 mg IV Q3H PRN PRN Reason: PAIN - SEVERE Ondansetron HCl (Zofran Inj*) 4 mg IV Q6H PRN PRN Reason: NAUSEA Last Admin: 05/06/19 03:15 Dose: 4 mg Oxycodone/Acetaminophen (Percocet 5/325 Tab*) 1 tab PO Q4H PRN PRN Reason: PAIN - MODERATE Pharmacy Consult (Zosyn Per Pharmacy*) 1 note FOLLOW UP .ZOSYN PER PHARMACY [facility] Potassium Chloride (Klor Con Er Tab*) 10 meq PO BID [facility]ENG Vital Signs - 8 hr 05/07/19 05/07/19 05/07/19 07:36 08:00 11:10 Temperature 98.2 F 99.6 F Pulse Rate 61 79 Respiratory 16 16 16 Rate Blood Pressure 153/78 135/70 (mmHg) O2 Sat by Pulse 97 96 Oximetry Oxygen Devices in Use Now: None Appearance: Pleasant woman in NAD Eyes: No Scleral Icterus, PERRLA Ears/Nose/Mouth/Throat: NL Teeth, Lips, Gums Neck: NL Appearance and Movements; NL JVP Respiratory: Symmetrical Chest Expansion and Respiratory Effort, Clear to Auscultation Cardiovascular: NL Sounds; No Murmurs; No JVD, RRR Abdominal: - - Belly soft NT ND, ostomy and TJ in placed Extremities: No Edema Skin: No Rash or Ulcers Neurological: Alert and Oriented x 3 Result Diagrams: 05/06/19 07:38 05/07/19 05:26 Microbiology and Other Data: Microbiology 04/26/19 12:57 Aerobic Blood Culture - Preliminary Blood Venous No Growth Day 2 Anaerobic Blood Culture - Preliminary No Growth Day 2 04/26/19 12:57 Aerobic Blood Culture - Preliminary Blood Venous No Growth Day 2 Anaerobic Blood Culture - Preliminary No Growth Day 2 04/26/19 12:22 Urine Culture - Final Urine Assess/Plan/Problems-Billing Assessment: 78F PMH HTN, HLD who presented with complicated diverticulitis thought to fistulizing on admission (though not seen in OR), now POD 5 from colectomy, loop ilesotomy and appendectomy and L ureteral stent placement, TJ drain in place, wound vac in place, ostomy appearing healthy. 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 based on imaging, though no evidence in ex lap sigmoid colectomy with primary anastomosis, loop ielostomy, appendectomy eventually as well as L ureteral stent placed - POD5 05/06 - continue IV zosyn, plan for days of tx for complicated diverticulitis (04/26-), descalate to Cipro/Flagyl on d/c with a stop date of 05/09 - appreciate general surgery input who manage lines and tubes - improving pain control on tylenol only (2) Ileostomy in place Current Visit: Yes Status: Acute Code(s): Z93.2 - ILEOSTOMY STATUS SNOMED Code(s): 315212352 Comment: - Pain control per general surgery, now improving - advance diet to soft (3) Hypokalemia Current Visit: Yes Status: Acute Code(s): E87.6 - HYPOKALEMIA SNOMED Code( s): 64177176 Comment: - potassium and magnesium replaced (4) Hypertension Current Visit: Yes Status: Acute Priority: Medium Code(s): I10 - ESSENTIAL (PRIMARY) HYPERTENSION SNOMED Code(s): 01077085 Comment: -BP mildly high pre medication, restart home losartan (5) Hyperlipidemia Current Visit: Yes Status: Acute Code(s): E78.5 - HYPERLIPIDEMIA, UNSPECIFIED SNOMED Code(s): 90521055 Comment: - Resume home statin (6) DVT prophylaxis Current Visit: Yes Status: Acute Priority: Low Code(s): Z29.9 - ENCOUNTER FOR PROPHYLACTIC MEASURES, UNSPECIFIED SNOMED Code(s): 213811855 Comment: - SQH (7) Full code status Current Visit: Yes Status: Acute Code(s): Z78.9 - OTHER SPECIFIED HEALTH STATUS SNOMED Code(s): 250225612 Status and Disposition: Inpatient Medicine, GS following Diet, advanced to soft PT OT ordered Case Mgmt: Pending gen surg decision for dispo
[2019-05-07] MEDS ORDERED: Potassium Phosphate IV* 10 MMOLE in NS 0.9% 250 ML* 250 ML IVPB ONE (13:00)
[2019-05-07] MEDS ORDERED: Atorvastatin* 10 MG TAB PO SCH (17:00)
[2019-05-07] MEDS: Potassium Chlor TAB* 10 MEQ TAB.ER PO SCH (21:35)
[2019-05-08] MEDS: Heparin VIAL(*) 5000 UNITS/ML VIAL (FIVE THOUSAND) SUBCUT SCH ×2 (00:52→09:14)
[2019-05-08] MEDS: ZOSYN 3.375 GM Q8H per EXTENDED INFUSION IVPB SCH ×2 (06:10)
[2019-05-08 07:08] LABS: Calcium 8.8 mg/dL (8.6-10.3); EGFR African American 124.8 (>60); EGFR Non-African American 103.1 (>60); Phosphorus 2.9 mg/dL (2.5-5.0); Potassium 3.4 mmol/L (3.5-5.0)
--- NOTE | 2019-05-08 08:07 | PN ---
Subjective Date of Service: 05/08/19 Interval History: HD 12 on 05/07 78F PMH HTN, HLD who presented with complicated diverticulitis thought to be fistulizing on admission (to bladder-though not seen in OR) with L ureteral stent placed, now POD 6 from colectomy, loop ilesotomy and appendectomy. TJ drain in place, wound vac in place, ostomy appearing healthy. Appreciate recommendations for this primarly surgical case Overnight, no acute events, VSS-mild HTN Labs: No indication to check from medicine standpoint This morning, she has no complaints, thinks surgery will d/c her home Family History: Unchanged from Admission Social History: Unchanged from Admission Past Medical History: Unchanged from Admission Objective Active Medications: Acetaminophen (Tylenol Tab*) 650 mg PO Q6H PRN PRN Reason: MILD PAIN or TEMP > 100.4 Last Admin: 05/07/19 22:55 Dose: 650 mg Atorvastatin Calcium (Lipitor*) 10 mg PO 1700 [facility] Last Admin: 05/07/19 17:34 Dose: Not Given Famotidine (Pepcid Iv*) 20 mg IV SLOW PU BID [facility] Last Admin: 05/07/19 21:35 Dose: 20 mg Heparin Sodium (Porcine) (Heparin Vial(*)) 5,000 units SUBCUT Q8H [facility] Last Admin: 05/08/19 00:52 Dose: 5,000 units Piperacillin Sod/Tazobactam (Sod 3.375 gm/ Sodium Chloride) 100 mls @ 25 mls/ hr IVPB Q8H [facility] Last Admin: 05/08/19 06:10 Dose: 25 mls/hr Losartan Potassium (Cozaar Tab*) 100 mg PO DAILY [facility] Last Admin: 05/07/19 09:46 Dose: 100 mg Morphine Sulfate (Morphine Inj (Syringe))*) 2 mg IV Q3H PRN PRN Reason: PAIN - SEVERE Ondansetron HCl (Zofran Inj*) 4 mg IV Q6H PRN PRN Reason: NAUSEA Last Admin: 05/06/19 03:15 Dose: 4 mg Oxycodone/Acetaminophen (Percocet 5/325 Tab*) 1 tab PO Q4H PRN PRN Reason: PAIN - MODERATE Pharmacy Consult (Zosyn Per Pharmacy*) 1 note FOLLOW UP .ZOSYN PER PHARMACY [facility] Potassium Chloride (Klor Con Er Tab*) 10 meq PO BID [facility] Last Admin: 05/07/19 21:35 Dose: 10 meq Vital Signs - 8 hr 05/08/19 05/08/19 03:08 07:18 Temperature 97.8 F 97.8 F Pulse Rate 64 66 Respiratory 16 16 Rate Blood Pressure 144/66 151/72 (mmHg) O2 Sat by Pulse 95 95 Oximetry Oxygen Devices in Use Now: None Appearance: Pleasant woman in NAD Ears/Nose/Mouth/Throat: NL Teeth, Lips, Gums, Mucous Membranes Moist Respiratory: Symmetrical Chest Expansion and Respiratory Effort, Clear to Auscultation Cardiovascular: NL Sounds; No Murmurs; No JVD, RRR Abdominal: - - Soft NT ND ostomy with stool Lymphatic: No Cervical Adenopathy Extremities: No Edema Skin: No Rash or Ulcers Neurological: Alert and Oriented x 3 Result Diagrams: 05/06/19 07:38 05/08/19 06:21 Microbiology and Other Data: Microbiology 04/26/19 12:57 Aerobic Blood Culture - Preliminary Blood Venous No Growth Day 2 Anaerobic Blood Culture - Preliminary No Growth Day 2 04/26/19 12:57 Aerobic Blood Culture - Preliminary Blood Venous No Growth Day 2 Anaerobic Blood Culture - Preliminary No Growth Day 2 04/26/19 12:22 Urine Culture - Final Urine Assess/Plan/Problems-Billing Assessment: 78F PMH HTN, HLD who presented with complicated diverticulitis thought to fistulizing on admission (though not seen in OR), now POD 6 from colectomy, loop ilesotomy and appendectomy and L ureteral stent placement, TJ drain in place, wound vac in place, ostomy appearing healthy. 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 based on imaging, though no evidence in ex lap sigmoid colectomy with primary anastomosis, loop ielostomy, appendectomy eventually as well as L ureteral stent placed - POD6 05/07 - continue IV zosyn, plan for days of tx for complicated diverticulitis (04/26-), descalate to Cipro/Flagyl on d/c with a stop date of 05/09 - appreciate general surgery input who manage lines and tubes - improving pain control on tylenol only (2) Ileostomy in place Current Visit: Yes Status: Acute Code(s): Z93.2 - ILEOSTOMY STATUS SNOMED Code(s): 009179734 Comment: - Pain control per general surgery, now improving - advance diet to soft (3) Hypokalemia Current Visit: Yes Status: Acute Code(s): E87.6 - HYPOKALEMIA SNOMED Code( s): 33977168 Comment: - potassium and magnesium replaced (4) Hypertension Current Visit: Yes Status: Acute Priority: Medium Code(s): I10 - ESSENTIAL (PRIMARY) HYPERTENSION SNOMED Code(s): 45539423 Comment: -BP mildly high pre medication, restart home losartan (5) Hyperlipidemia Current Visit: Yes Status: Acute Code(s): E78.5 - HYPERLIPIDEMIA, UNSPECIFIED SNOMED Code(s): 97141294 Comment: - Resume home statin (6) DVT prophylaxis Current Visit: Yes Status: Acute Priority: Low Code(s): Z29.9 - ENCOUNTER FOR PROPHYLACTIC MEASURES, UNSPECIFIED SNOMED Code(s): 930302964 Comment: - SQH (7) Full code status Current Visit: Yes Status: Acute Code(s): Z78.9 - OTHER SPECIFIED HEALTH STATUS SNOMED Code(s): 818028726 Status and Disposition: Inpatient Medicine, GS following Diet, advanced to soft PT OT ordered Case Mgmt: Pending gen surg decision for dispo
[2019-05-08] MEDS: Losartan TAB* 25 MG PO SCH (09:12)
[2019-05-08] MEDS: Potassium Chlor TAB* 10 MEQ TAB.ER PO SCH (09:13)
[2019-05-08] MEDS: Famotidine IV* 10 MG/ML 2 ML (20 mg) IV SLOW PU SCH (09:16)
--- NOTE | 2019-05-08 10:56 | PN ---
Progress Note - Progress Note Date of Service: 05/08/19 SOAP: Subjective: NAD Tolerating soft diet + BM via Ileostomy [] Objective: Vital Signs Temp 97.8 F 05/08/19 07:18 Pulse 66 05/08/19 07:18 Resp 16 05/08/19 09:20 BP 151/72 05/08/19 07:18 Pulse Ox 95 05/08/19 07:18 Intake & Output 05/07/19 05/08/19 05/08/19 18:59 06:59 18:59 Intake Total 605 967 Output Total 1295 3000 500 Balance -690 -2033 -500 Intake: IV Fluids 10 40 ABX - ZOSYN 40 NS (0.9%) 10 IVPB 275 467 ABX - ZOSYN 220 214 Magnesium 55 potassium phosphate 253 Oral 320 460 Output: TJ #1 45 50 Urine 1150 2800 500 Ileostomy 100 150 Laboratory Tests 05/08/19 06:21 Potassium 3.4 L 05/08/19 06:21 Phosphorus 2.9 Magnesium 2.0 PEX GEN: NAD Chest: CTAB CVS: RRR Abd: soft, non distended, ileostomy red and healthy stool in bag, incision C/D/I [place] in place TJ LLQ with SS output Ext: Calves soft, non tender [] Assessment: 78 yo female POD 6 S/P Sigmoid colectomy, loop ileostomy, Appendectomy for diverticulitis, tolerating diet,ambulating well. low K+ [] Plan: Provena vacuum wound dressing was removed, incision to open air, ostomy appliance was changed. D/C Home, Home health arranged Return to office 05/12 for TJ removal, Urology office Dr Morin 2019 for removal of ureteral stent. Above was discussed with patient, all questions were answered. K+ was replaced. Patient also seen and examined by Dr Oakes []
[2019-05-08 11:09] VITALS: BP 151/74
[2019-05-08] MEDS ORDERED: Potassium Chlor TAB* 20 MEQ TAB.ER PO ONE (11:31)
[2019-05-08] MEDS: Acetaminophen TAB* 325 MG PO PRN (12:06)
--- NOTE | 2019-05-08 17:03 | DS ---
Discharge Summary Surgeon: Violette LUCAS Admit Date:04/26/2019 Discharge Date: 05/08/2019 Admission DX: Diverticulitis Discharge DX: s/p left ureteral stent placement, Sigmoid colectomy,loop ileostomy,appendectomy Condition at Discharge:Stable Date of D/C PEX: PEX GEN: NAD Chest: CTAB CVS: RRR Abd: soft, non distended, ileostomy red and healthy stool in bag, incision C/D/I [place] in place TJ LLQ with SS output Ext: Calves soft, non tender Procedures Performed: Cystoscopy, left ureteral stent placement, Sigmoid colectomy, appendectomy, loop ileostomy. Hospital Course: 78 yo female admitted with fever LLQ pain after being treated conservatively with PO antibiotics for diverticulitis, had been in hospital from 03/26 to 03/29. Pt was followed by the hospitalist service throughout her stay. Patient was started on Zosyn on admit and continued with conservative management. Labs were checked daily, lytes were replaced as needed.Nystatin swish and swallow was resumed for thush which had developed during previous stay. She was kept on a clear liquid diet. Bowel prep was ordered pre op., post op pain was controlled with dilaudid retail advertising sales manager pump, pitt was removed on POD 3, [employer] pump d/c'd on POD 4, IVF were stopped, full liquid diet commenced. diet was slowly advanced to soft. On 05/07, POD 6, Provena vac dressing was removed, zak were left open to air, appliance was changed, post op appointments were made with Dr Oakes for removal of TJ, and for Dr Morin for removal of JJ Ureteral Stent. Visiting nurse had been arranged, Ostomy training had been done. Patient had been seen and examined by Dr Oakes and Dr Figueroa Discharge instructions were given to the patient regarding Diet, Medications, Activity, and post operative Follow up. All Questions were answered. Discharged Home in Stable Condition on 05/08/2019
== END 2019-05-08 14:15 | disposition home health service (06) | DRG 330 ==
LOC: ED 11:53 → MEDTELE 19:35 → SSU 05-02 20:21
PROVIDERS: ADMIT Student in an Organized Health Care Education/Training Program; ATTEND Internal Medicine
PROC: 0DTJ0ZZ Resection of Appendix, Open Approach (ICD-10-PCS; 2019-05-02)
PROC: 0T778DZ Dilation of Left Ureter with Intraluminal Device, Via Natural or Artificial Opening Endoscopic (ICD-10-PCS; 2019-05-02)
PROC: 30233N1 Transfusion of Nonautologous Red Blood Cells into Peripheral Vein, Percutaneous Approach (ICD-10-PCS; 2019-05-02)
PROC: 0T7D8ZZ Dilation of Urethra, Via Natural or Artificial Opening Endoscopic (ICD-10-PCS; 2019-05-02)
PROC: BT1FZZZ Fluoroscopy of Left Kidney, Ureter and Bladder (ICD-10-PCS; 2019-05-02)
PROC: 0DBN0ZZ Excision of Sigmoid Colon, Open Approach (ICD-10-PCS; principal; 2019-05-02 14:15)
PROC: 0D1B0Z4 Bypass Ileum to Cutaneous, Open Approach (ICD-10-PCS; 2019-05-02 14:15)
DX: K57.20 Diverticulitis of large intestine with perforation and abscess without bleeding (principal); K52.1 Toxic gastroenteritis and colitis; K56.7 Ileus, unspecified; I10 Essential (primary) hypertension; E78.5 Hyperlipidemia, unspecified; G43.909 Migraine, unspecified, not intractable, without status migrainosus; E89.0 Postprocedural hypothyroidism; N35.92 Unspecified urethral stricture, female; R74.8 Abnormal levels of other serum enzymes; E87.6 Hypokalemia; T36.95XA Adverse effect of unspecified systemic antibiotic, initial encounter; Y92.239 Unspecified place in hospital as the place of occurrence of the external cause; E78.00 Pure hypercholesterolemia, unspecified; M17.11 Unilateral primary osteoarthritis, right knee; M19.042 Primary osteoarthritis, left hand; M19.041 Primary osteoarthritis, right hand; Z28.21 Immunization not carried out because of patient refusal; Z88.4 Allergy status to anesthetic agent; Z79.899 Other long term (current) drug therapy
CPT/HCPCS: 36415; 71046; 74177; 74420; 76705; 80048; 80053; 80076; 81003; 81015; 83605; 83735; 84100; 85014; 85018; 85025; 85610; 85652; 85730; 86078; 86140; 86850; 86900; 86901; 86922; 87040; 87086; 87106; 88307; 99285; A9270-GY; A9272-GY; C1776; C1876; J1170; J1644; J2405; J2543; J3010; J3475; J3480; P9040; Q9967

== ENCOUNTER 2019-08-14 07:30 | Inpatient (IN) ==
[~2019-08-14 07:30] MED LIST: Lactated Ringers 1000 ml BAG 1,000 ML IV SCH; Piperacillin/Tazobac ADVAN(*) 3.375 GM in NS 0.9% 100 ml BAG 100 ML IV SCH
[2019-08-14] MEDS ORDERED: fentaNYL 100 mcg/2 ml 50 MCG/ML VIAL ONE ×2 (12:24→12:44)
[2019-08-14] MEDS ORDERED: Rocuronium 50 mg VIAL 10 mg/ml 5 ml VIAL (50 mg) ONE (12:24)
[2019-08-14] MEDS ORDERED: Bupivacaine 0.25% EPI 200,000 30 ML SDV ONE (12:35)
[2019-08-14] MEDS ORDERED: Lidocaine 2% PF 5 ML VIAL ONE (12:44)
[2019-08-14] MEDS ORDERED: Midazolam 2 mg/2 ml VIAL 1 mg/ml 2 ml VIAL (2 mg) ONE (12:44)
[2019-08-14] MEDS ORDERED: Propofol 10 MG/ML 20 ML BTL ONE (12:44)
[2019-08-14] MEDS ORDERED: DiMENhydriNATE IV 50 mg/ml 1 ml VIAL IV PUSH PRN (12:53)
[2019-08-14] MEDS ORDERED: Naloxone 0.4 mg VIAL 0.4 mg/ml 1 ml VIAL IV PRN (12:53)
[2019-08-14] MEDS ORDERED: fentaNYL 100 mcg/2 ml 50 MCG/ML VIAL IV PRN (12:53)
[2019-08-14] MEDS ORDERED: Ondansetron 4 mg VIAL 2 MG/ML 2 ml VIAL ONE (13:14)
[2019-08-14] MEDS ORDERED: Metoclopramide 5 MG/ML VIAL (10 mg) ONE (13:14)
[2019-08-14] MEDS ORDERED: Dexamethasone IV 4 MG/ML VIAL 1 ml VIAL ONE (13:14)
[2019-08-14] MEDS ORDERED: EPHEDrine (Pressors) 50 MG/ML VIAL ONE (13:16)
[2019-08-14] MEDS ORDERED: Acetaminophen IV 1 GM/100ML 100 ML ONE (14:17)
[2019-08-14] MEDS ORDERED: Ondansetron 4 mg VIAL 2 MG/ML 2 ml VIAL IV PRN (14:58)
[2019-08-14] MEDS ORDERED: Lactated Ringers 1000 ml BAG 1,000 ML IV SCH (15:00)
[2019-08-14] MEDS ORDERED: HYDROmorphone 0.5 MG/0.5 ML SYRINGE IV PRN (15:03)
[2019-08-14] MEDS: Lactated Ringers 1000 ml BAG 1,000 ML IV SCH (17:26)
[2019-08-14] MEDS: oxyCODONE/Acetamin 5/325 mg TAB PO PRN (17:42)
[2019-08-15] MEDS: oxyCODONE/Acetamin 5/325 mg TAB PO PRN ×3 (03:42→21:21)
[2019-08-15 05:25] LABS: ABS Lymphocytes 1.7 10^3/ul (1.0-4.8); ABS Monocytes 0.8 10^3/ul (0-0.8); Eosinophil % 0.2 %; Hematocrit 33 % (35-47); Hemoglobin 11.1 g/dL (12.0-16.0); Lymphocyte % 20.8 %; Mean Corpuscular HGB Conc 34 g/dL (31-36); Mean Corpuscular Hemoglobin 30 pg (27-31); Mean Corpuscular Volume 88 fL (80-97); Mean Platelet Volume 7.2 fL (7.4-10.4); Platelet Count 267 10^3/uL (150-450); Red Cell Distribution Width 14 % (10-15); White Blood Count 8.2 10^3/uL (3.5-10.8)
[2019-08-15 05:41] LABS: BUN/Creatinine Ratio 15.1 (8-20); Calcium 8.6 mg/dL (8.6-10.3); EGFR African American 93.8 (>60); EGFR Non-African American 77.5 (>60); Potassium 3.7 mmol/L (3.5-5.0)
[2019-08-15] MEDS: Heparin 5000 UNITS/ML VIAL(*) 1 ml vial SUBCUT SCH ×3 (06:13→22:44)
[2019-08-15] MEDS: Lactated Ringers 1000 ml BAG 1,000 ML IV SCH (13:31)
[2019-08-16] MEDS: oxyCODONE/Acetamin 5/325 mg TAB PO PRN ×2 (04:11→10:52)
[2019-08-16] MEDS: Heparin 5000 UNITS/ML VIAL(*) 1 ml vial SUBCUT SCH (06:45)
[2019-08-16 07:27] VITALS: BP 135/64
== END 2019-08-16 12:00 | disposition home or self-care (01) | DRG 331 ==
LOC: AA 10:36 → SSU 16:33
PROVIDERS: ADMIT Surgery; ATTEND Surgery

== ENCOUNTER 2019-10-13 08:07 | Inpatient (IN) ==
[2019-10-13] MEDS ORDERED: NS 0.9% 1000 ml BAG 1,000 ML IV ONE (08:23)
[2019-10-13] MEDS ORDERED: Morphine 4 MG/ML VIAL (1 ml) IV ONE ×2 (08:25→11:40)
[2019-10-13] MEDS ORDERED: Ondansetron 4 mg VIAL 2 MG/ML 2 ml VIAL IV ONE ×2 (08:25→09:36)
[2019-10-13 08:46] LABS: ABS Lymphocytes 0.8 10^3/ul (1.0-4.8); ABS Monocytes 0.5 10^3/ul (0-0.8); ABS Neutrophils 14.9 10^3/ul (1.5-7.7); Hematocrit 42 % (35-47); Hemoglobin 14.3 g/dL (12.0-16.0); Mean Corpuscular HGB Conc 34 g/dL (31-36); Mean Corpuscular Hemoglobin 30 pg (27-31); Mean Corpuscular Volume 89 fL (80-97); Mean Platelet Volume 7.4 fL (7.4-10.4); Platelet Count 376 10^3/uL (150-450); Red Blood Count 4.78 10^6 /uL (3.70-4.87); Red Cell Distribution Width 14 % (10-15); White Blood Count 16.3 10^3/uL (3.5-10.8)
[2019-10-13 09:17] LABS: Albumin 4.6 g/dL (3.2-5.2); Albumin/Globulin Ratio 1.4 (1-3); BUN/Creatinine Ratio 30.4 (8-20); C Reactive Protein 12.54 mg/L (<8.01); EGFR African American 71.8 (>60); EGFR Non-African American 59.4 (>60); Globulin 3.3 g/dL (2-4); Potassium 3.9 mmol/L (3.5-5.0); Total Bilirubin 0.6 mg/dL (0.2-1.0); Total Protein 7.9 g/dL (6.4-8.9)
[2019-10-13] MEDS ORDERED: Metoclopramide 5 MG/ML VIAL (10 mg) IV SLOW PU ONE (10:18)
[2019-10-13] MEDS ORDERED: Metoclopramide 5 MG/ML VIAL (10 mg) ONE (10:19)
[2019-10-13] MEDS ORDERED: Iodixanol (CONTRAST) 320 MG/ML 100 ML SDV IV ONE (10:35)
[2019-10-13] MEDS ORDERED: HYDROmorphone 1 MG/1 ML SYRINGE IV SLOW PU PRN (13:46)
[2019-10-13] MEDS ORDERED: Ondansetron 4 mg VIAL 2 MG/ML 2 ml VIAL IV PRN (13:46)
[2019-10-13] MEDS: Lactated Ringers 1000 ml BAG 1,000 ML IV SCH (14:51)
[2019-10-13 18:54] LABS: Urine Appearance Clear; Urine Bilirubin Negative (Negative); Urine Blood Negative (Negative); Urine Color Yellow; Urine Glucose Negative (Negative); Urine Ketones Negative (Negative); Urine Nitrite Negative (Negative); Urine Protein Negative (Negative); Urine Urobilinogen Negative (Negative)
[2019-10-14] MEDS: Lactated Ringers 1000 ml BAG 1,000 ML IV SCH ×3 (01:19→23:37)
[2019-10-14 06:35] LABS: ABS Lymphocytes 1.1 10^3/ul (1.0-4.8); ABS Monocytes 0.7 10^3/ul (0-0.8); ABS Neutrophils 5.8 10^3/ul (1.5-7.7); Eosinophil % 0.1 %; Hematocrit 34 % (35-47); Hemoglobin 11.9 g/dL (12.0-16.0); Lymphocyte % 14.3 %; Mean Corpuscular HGB Conc 35 g/dL (31-36); Mean Corpuscular Hemoglobin 31 pg (27-31); Mean Corpuscular Volume 88 fL (80-97); Mean Platelet Volume 7.8 fL (7.4-10.4); Platelet Count 271 10^3/uL (150-450); Red Blood Count 3.85 10^6 /uL (3.70-4.87); Red Cell Distribution Width 14 % (10-15); White Blood Count 7.7 10^3/uL (3.5-10.8)
[2019-10-14 06:54] LABS: Calcium 8.7 mg/dL (8.6-10.3); Potassium 3.9 mmol/L (3.5-5.0)
[2019-10-14 07:00] LABS: BUN/Creatinine Ratio 32.2 (8-20); EGFR African American 76.6 (>60); EGFR Non-African American 63.3 (>60)
[2019-10-14] MEDS: Aspirin EC 81 mg TAB.EC (enteric coated) PO SCH (09:09)
[2019-10-15] MEDS: Aspirin EC 81 mg TAB.EC (enteric coated) PO SCH (09:28)
[2019-10-15] MEDS: Lactated Ringers 1000 ml BAG 1,000 ML IV SCH (09:30)
[2019-10-15 15:16] VITALS: BP 136/57
== END 2019-10-15 17:35 | disposition home or self-care (01) | DRG 390 ==
LOC: SSU 08:07 → ED 08:07 → OBSVTOIN 14:12 → SSU 14:22
PROVIDERS: ADMIT Surgery Surgical Critical Care; ATTEND Surgery

== ENCOUNTER 2019-11-27 08:00 | Inpatient (IN) ==
[2019-11-27] MEDS ORDERED: Ondansetron 4 mg VIAL 2 MG/ML 2 ml VIAL IV ONE (08:29)
[2019-11-27] MEDS ORDERED: NS 0.9% 1000 ml BAG 1,000 ML IV ONE (08:29)
[2019-11-27 09:02] LABS: ABS Lymphocytes 1.1 10^3/ul (1.0-4.8); ABS Monocytes 0.8 10^3/ul (0-0.8); Hematocrit 43 % (35-47); Hemoglobin 14.8 g/dL (12.0-16.0); Lymphocyte % 7.5 %; Mean Corpuscular HGB Conc 34 g/dL (31-36); Mean Corpuscular Hemoglobin 30 pg (27-31); Mean Corpuscular Volume 87 fL (80-97); Mean Platelet Volume 7.8 fL (7.4-10.4); Platelet Count 359 10^3/uL (150-450); Red Blood Count 4.99 10^6 /uL (3.70-4.87); Red Cell Distribution Width 14 % (10-15)
[2019-11-27 09:20] LABS: Albumin 4.7 g/dL (3.2-5.2); Albumin/Globulin Ratio 1.4 (1-3); BUN/Creatinine Ratio 26.2 (8-20); C Reactive Protein 17.81 mg/L (<8.01); Calcium 10.6 mg/dL (8.6-10.3); EGFR African American 79.6 (>60); EGFR Non-African American 65.7 (>60); Globulin 3.4 g/dL (2-4); Magnesium 1.9 mg/dL (1.9-2.7); Potassium 4.1 mmol/L (3.5-5.0); Total Bilirubin 1.1 mg/dL (0.2-1.0); Total Protein 8.1 g/dL (6.4-8.9)
[2019-11-27] MEDS ORDERED: Iohexol 300 (CONTRAST) 10 ML SDV IV ONE (09:28)
[2019-11-27] MEDS ORDERED: Morphine 4 MG/ML VIAL (1 ml) IV ONE ×2 (09:43→11:11)
[2019-11-27] MEDS: Ondansetron 4 mg VIAL 2 MG/ML 2 ml VIAL IV PRN ×2 (13:10→22:49)
[2019-11-27] MEDS: Lactated Ringers 1000 ml BAG 1,000 ML IV SCH (13:12)
[2019-11-27] MEDS: Enoxaparin 40 MG/0.4 ML SYR SUBCUT SCH (15:48)
[2019-11-27] MEDS: Prochlorperazine 5 mg/ml 2 ml VIAL (10 mg) IV PRN (15:48)
[2019-11-27 16:34] LABS: Urine Appearance Clear; Urine Bilirubin Negative (Negative); Urine Blood Negative (Negative); Urine Color Yellow; Urine Glucose Negative (Negative); Urine Ketones Trace (Negative); Urine Nitrite Negative (Negative); Urine Protein Negative (Negative); Urine Specific Gravity 1.056 (1.010-1.030); Urine Urobilinogen Negative (Negative)
[2019-11-28] MEDS: Lactated Ringers 1000 ml BAG 1,000 ML IV SCH ×2 (02:45→14:51)
[2019-11-28 06:12] LABS: ABS Lymphocytes 1.1 10^3/ul (1.0-4.8); ABS Monocytes 0.9 10^3/ul (0-0.8); Eosinophil % 0.2 %; Hematocrit 38 % (35-47); Hemoglobin 13.1 g/dL (12.0-16.0); Lymphocyte % 15.4 %; Mean Corpuscular HGB Conc 35 g/dL (31-36); Mean Corpuscular Hemoglobin 30 pg (27-31); Mean Corpuscular Volume 86 fL (80-97); Mean Platelet Volume 7.6 fL (7.4-10.4); Platelet Count 309 10^3/uL (150-450); Red Blood Count 4.38 10^6 /uL (3.70-4.87); Red Cell Distribution Width 15 % (10-15)
[2019-11-28 06:19] LABS: BUN/Creatinine Ratio 29.1 (8-20); Calcium 9.3 mg/dL (8.6-10.3); EGFR African American 85.4 (>60); EGFR Non-African American 70.6 (>60); Potassium 4.1 mmol/L (3.5-5.0)
[2019-11-28] MEDS: Ondansetron 4 mg VIAL 2 MG/ML 2 ml VIAL IV PRN ×2 (07:51→20:28)
[2019-11-28] MEDS: Enoxaparin 40 MG/0.4 ML SYR SUBCUT SCH (12:08)
[2019-11-28] MEDS: Prochlorperazine 5 mg/ml 2 ml VIAL (10 mg) IV PRN (23:26)
[2019-11-29] MEDS: Lactated Ringers 1000 ml BAG 1,000 ML IV SCH (00:51)
[2019-11-29] MEDS ORDERED: Lactated Ringers 1000 ml BAG 1,000 ML IV SCH (06:00)
[2019-11-29 07:08] LABS: ABS Neutrophils 3.6 10^3/ul (1.5-7.7); Eosinophil % 0.5 %; Hematocrit 34 % (35-47); Hemoglobin 11.8 g/dL (12.0-16.0); Lymphocyte % 30.5 %; Mean Corpuscular HGB Conc 35 g/dL (31-36); Mean Corpuscular Hemoglobin 30 pg (27-31); Mean Corpuscular Volume 87 fL (80-97); Mean Platelet Volume 7.9 fL (7.4-10.4); Platelet Count 286 10^3/uL (150-450); Red Blood Count 3.92 10^6 /uL (3.70-4.87); Red Cell Distribution Width 15 % (10-15); White Blood Count 6.7 10^3/uL (3.5-10.8)
[2019-11-29 07:27] LABS: Calcium 8.3 mg/dL (8.6-10.3); EGFR Non-African American 78.5 (>60); Magnesium 1.9 mg/dL (1.9-2.7); Potassium 3.6 mmol/L (3.5-5.0)
[2019-11-29] MEDS ORDERED: Famotidine IV 10 MG/ML 2 ml VIAL (20 mg) IV ONE (09:00)
[2019-11-29] MEDS ORDERED: Famotidine IV 10 MG/ML 2 ml VIAL (20 mg) ONE (09:50)
[2019-11-29] MEDS ORDERED: Bupivacaine 0.25% SDV 30 ML ONE (11:11)
[2019-11-29] MEDS ORDERED: ceFAZolin 2 GM PREMIX 2 GM/50 ML BAG ONE (11:12)
[2019-11-29] MEDS ORDERED: Rocuronium 50 mg VIAL 10 mg/ml 5 ml VIAL (50 mg) ONE ×2 (11:19→15:24)
[2019-11-29] MEDS ORDERED: Propofol 10 MG/ML 20 ML BTL ONE (11:19)
[2019-11-29] MEDS ORDERED: Succinylcholine 200 mg VIAL 20 mg/ml 10 ml VIAL (200 mg) ONE (11:19)
[2019-11-29] MEDS ORDERED: fentaNYL 250 mcg/5 ml 50 MCG/ML 5 ml VIAL (250 MCG) ONE (11:19)
[2019-11-29] MEDS ORDERED: Lidocaine 2% PF 5 ML VIAL ONE (11:19)
[2019-11-29] MEDS ORDERED: metroNIDAZOLE IV 500 MG/100ML 100 ML IVPB ONE (11:30)
[2019-11-29] MEDS ORDERED: Sodium Citrate/Citric Acid LIQ 15 ML UDC PO ONE (11:34)
[2019-11-29] MEDS ORDERED: Sodium Citrate/Citric Acid LIQ 15 ML UDC ONE (11:35)
[2019-11-29] MEDS ORDERED: Phenylephrine 40 mcg/mL 10mL (400mcg) SYRINGE ONE (12:04)
[2019-11-29] MEDS ORDERED: EPHEDrine (Pressors) 50 MG/ML VIAL ONE (12:09)
[2019-11-29] MEDS ORDERED: Labetalol IV 5 MG/ML 20 ml VIAL ONE (12:32)
[2019-11-29] MEDS ORDERED: fentaNYL 100 mcg/2 ml 50 MCG/ML VIAL ONE ×2 (13:28→14:04)
[2019-11-29] MEDS ORDERED: Ondansetron 4 mg VIAL 2 MG/ML 2 ml VIAL ONE (15:54)
[2019-11-29] MEDS ORDERED: Dexamethasone IV 4 MG/ML VIAL 1 ml VIAL ONE (15:54)
[2019-11-29] MEDS ORDERED: ceFAZolin VIAL VIAL ONE (15:59)
[2019-11-29] MEDS ORDERED: Acetaminophen IV 1 GM/100ML 1,000 MG/100 ML VIAL IVPB ONE (16:25)
[2019-11-29] MEDS ORDERED: Ondansetron 4 mg VIAL 2 MG/ML 2 ml VIAL IV PRN (16:25)
[2019-11-29] MEDS ORDERED: Naloxone 0.4 mg VIAL 0.4 mg/ml 1 ml VIAL IV PRN (16:25)
[2019-11-29] MEDS: HYDROmorphone 1 MG/1 ML SYRINGE IV PRN ×5 (16:25→17:10)
[2019-11-29] MEDS ORDERED: HYDROmorphone 1 MG/1 ML SYRINGE ONE (16:25)
[2019-11-29] MEDS ORDERED: Acetaminophen IV 1 GM/100ML 100 ML ONE (16:26)
[2019-11-29] MEDS ORDERED: Naloxone 0.4 mg VIAL 0.4 mg/ml 1 ml VIAL IV PUSH PRN (16:39)
[2019-11-29] MEDS ORDERED: ceFAZolin 1 GM ADVAN 1 GM ADDV.VIAL IVPB ONE (16:58)
[2019-11-29] MEDS ORDERED: Morphine PCA ADULT 5 MG/ML 30 ML PCA SCH (17:30)
[2019-11-29] MEDS: LACTATED RINGERS 1000 ML BAG IV SCH (20:20)
[2019-11-29] MEDS: ceFAZolin 1 GM Q8H (ADVAN) IVPB SCH (20:38)
[2019-11-30 01:13] LABS: Urine Appearance Clear; Urine Bilirubin Negative (Negative); Urine Blood Negative (Negative); Urine Color Yellow; Urine Glucose Negative (Negative); Urine Ketones 2+ (Negative); Urine Nitrite Negative (Negative); Urine Protein Negative (Negative); Urine Specific Gravity 1.023 (1.010-1.030); Urine Urobilinogen Negative (Negative)
[2019-11-30] MEDS: LACTATED RINGERS 1000 ML BAG IV SCH ×3 (02:58→18:28)
[2019-11-30] MEDS: ceFAZolin 1 GM Q8H (ADVAN) IVPB SCH (04:49)
[2019-11-30 05:35] LABS: ABS Lymphocytes 1.3 10^3/ul (1.0-4.8); ABS Monocytes 0.7 10^3/ul (0-0.8); ABS Neutrophils 5.8 10^3/ul (1.5-7.7); Eosinophil % 0.1 %; Hematocrit 35 % (35-47); Hemoglobin 11.9 g/dL (12.0-16.0); Lymphocyte % 16.5 %; Mean Corpuscular HGB Conc 34 g/dL (31-36); Mean Corpuscular Hemoglobin 30 pg (27-31); Mean Corpuscular Volume 87 fL (80-97); Mean Platelet Volume 7.4 fL (7.4-10.4); Platelet Count 281 10^3/uL (150-450); Red Cell Distribution Width 15 % (10-15); White Blood Count 7.9 10^3/uL (3.5-10.8)
[2019-11-30 05:47] LABS: Albumin 2.7 g/dL (3.2-5.2); Albumin/Globulin Ratio 1.3 (1-3); BUN/Creatinine Ratio 15.6 (8-20); Calcium 7.5 mg/dL (8.6-10.3); EGFR African American 108.9 (>60); Globulin 2.1 g/dL (2-4); Magnesium 1.6 mg/dL (1.9-2.7); Potassium 3.6 mmol/L (3.5-5.0); Total Bilirubin 0.3 mg/dL (0.2-1.0); Total Protein 4.8 g/dL (6.4-8.9)
[2019-11-30] MEDS ORDERED: Magnesium Sulfate 2 gm BAG 2 GM/50 ML BAG IVPB ONE (07:04)
[2019-11-30] MEDS: Pantoprazole VIAL 40 MG VIAL IV SCH (10:26)
[2019-11-30] MEDS: Ondansetron 4 mg VIAL 2 MG/ML 2 ml VIAL IV PRN ×2 (14:07→20:39)
[2019-11-30] MEDS: Heparin 5000 UNITS/ML 1 mL VIAL SUBCUT SCH ×2 (14:08→22:12)
[2019-11-30] MEDS ORDERED: KCL 20 MEQ/100 ML IVPREMIX 20 MEQ/100 ML BAG IV ONE (14:45)
[2019-12-01] MEDS: LACTATED RINGERS 1000 ML BAG IV SCH ×3 (02:11→19:44)
[2019-12-01] MEDS: Ondansetron 4 mg VIAL 2 MG/ML 2 ml VIAL IV PRN ×3 (03:50→15:37)
[2019-12-01 05:43] LABS: ABS Eosinophils 0.1 10^3/ul (0-0.6); ABS Lymphocytes 1.5 10^3/ul (1.0-4.8); ABS Monocytes 0.9 10^3/ul (0-0.8); ABS Neutrophils 8.1 10^3/ul (1.5-7.7); Hematocrit 31 % (35-47); Hemoglobin 10.7 g/dL (12.0-16.0); Lymphocyte % 13.8 %; Mean Corpuscular HGB Conc 34 g/dL (31-36); Mean Corpuscular Hemoglobin 30 pg (27-31); Mean Corpuscular Volume 87 fL (80-97); Mean Platelet Volume 7.3 fL (7.4-10.4); Platelet Count 292 10^3/uL (150-450); Red Blood Count 3.62 10^6 /uL (3.70-4.87); Red Cell Distribution Width 14 % (10-15); White Blood Count 10.5 10^3/uL (3.5-10.8)
[2019-12-01] MEDS: Heparin 5000 UNITS/ML 1 mL VIAL SUBCUT SCH ×3 (05:52→21:41)
[2019-12-01 06:07] LABS: BUN/Creatinine Ratio 18.5 (8-20); EGFR Non-African American 109.5 (>60); Potassium 3.5 mmol/L (3.5-5.0)
[2019-12-01 06:08] LABS: Albumin 2.8 g/dL (3.2-5.2); Albumin/Globulin Ratio 1.1 (1-3); Calcium 8.1 mg/dL (8.6-10.3); EGFR African American 132.5 (>60); Globulin 2.5 g/dL (2-4); Magnesium 1.9 mg/dL (1.9-2.7); Total Bilirubin 0.4 mg/dL (0.2-1.0); Total Protein 5.3 g/dL (6.4-8.9)
[2019-12-01] MEDS: Pantoprazole VIAL 40 MG VIAL IV SCH (09:39)
[2019-12-01] MEDS ORDERED: KCL 20 MEQ/100 ML IVPREMIX 20 MEQ/100 ML BAG IV ONE (10:45)
[2019-12-01] MEDS ORDERED: Prochlorperazine 5 mg/ml 2 ml VIAL (10 mg) IV PRN (18:13)
[2019-12-02] MEDS: Ondansetron 4 mg VIAL 2 MG/ML 2 ml VIAL IV PRN (03:12)
[2019-12-02] MEDS: LACTATED RINGERS 1000 ML BAG IV SCH ×3 (03:36→21:25)
[2019-12-02 05:27] LABS: ABS Eosinophils 0.2 10^3/ul (0-0.6); ABS Lymphocytes 1.5 10^3/ul (1.0-4.8); ABS Monocytes 0.9 10^3/ul (0-0.8); Eosinophil % 2.4 %; Hematocrit 30 % (35-47); Hemoglobin 9.9 g/dL (12.0-16.0); Lymphocyte % 15.5 %; Mean Corpuscular HGB Conc 34 g/dL (31-36); Mean Corpuscular Hemoglobin 29 pg (27-31); Mean Corpuscular Volume 86 fL (80-97); Mean Platelet Volume 7.1 fL (7.4-10.4); Platelet Count 269 10^3/uL (150-450); Red Blood Count 3.44 10^6 /uL (3.70-4.87); Red Cell Distribution Width 14 % (10-15); White Blood Count 9.6 10^3/uL (3.5-10.8)
[2019-12-02 05:46] LABS: Albumin 2.7 g/dL (3.2-5.2); BUN/Creatinine Ratio 21.7 (8-20); Calcium 7.8 mg/dL (8.6-10.3); EGFR African American 159.4 (>60); EGFR Non-African American 131.7 (>60); Globulin 2.6 g/dL (2-4); Magnesium 1.7 mg/dL (1.9-2.7); Potassium 3.4 mmol/L (3.5-5.0); Total Bilirubin 0.3 mg/dL (0.2-1.0); Total Protein 5.3 g/dL (6.4-8.9)
[2019-12-02] MEDS: Heparin 5000 UNITS/ML 1 mL VIAL SUBCUT SCH ×3 (06:18→21:24)
[2019-12-02] MEDS ORDERED: Magnesium Sulfate 2 gm BAG 2 GM/50 ML BAG IVPB ONE (07:28)
[2019-12-02] MEDS: Pantoprazole VIAL 40 MG VIAL IV SCH (09:23)
[2019-12-02] MEDS: KCL 20 MEQ/100 ML IVPREMIX 20 MEQ/100 ML BAG IV SCH ×2 (09:24→11:56)
[2019-12-02] MEDS: Nystatin SUSPENSION 100,000 UNITS/ML UDC PO SCH ×2 (16:47→21:19)
[2019-12-03] MEDS: HYDROmorphone 0.5 MG/0.5 ML SYRINGE IV SLOW PU PRN ×4 (01:02→21:45)
[2019-12-03] MEDS: LACTATED RINGERS 1000 ML BAG IV SCH (05:03)
[2019-12-03 05:42] LABS: Hematocrit 30 % (35-47); Hemoglobin 10.1 g/dL (12.0-16.0); Mean Corpuscular HGB Conc 34 g/dL (31-36); Mean Corpuscular Hemoglobin 29 pg (27-31); Mean Corpuscular Volume 85 fL (80-97); Mean Platelet Volume 7.3 fL (7.4-10.4); Platelet Count 339 10^3/uL (150-450); Red Blood Count 3.54 10^6 /uL (3.70-4.87); Red Cell Distribution Width 15 % (10-15); White Blood Count 8.5 10^3/uL (3.5-10.8)
[2019-12-03] MEDS: Heparin 5000 UNITS/ML 1 mL VIAL SUBCUT SCH ×3 (05:52→21:42)
[2019-12-03] MEDS: Ondansetron 4 mg VIAL 2 MG/ML 2 ml VIAL IV PRN ×3 (05:52→14:45)
[2019-12-03 05:59] LABS: BUN/Creatinine Ratio 25.6 (8-20); Calcium 7.9 mg/dL (8.6-10.3); EGFR African American 172.3 (>60); EGFR Non-African American 142.4 (>60); Magnesium 1.8 mg/dL (1.9-2.7); Phosphorus 2.4 mg/dL (2.5-5.0); Potassium 3.6 mmol/L (3.5-5.0)
[2019-12-03] MEDS ORDERED: Magnesium Sulfate 2 gm BAG 2 GM/50 ML BAG IVPB ONE (07:10)
[2019-12-03 07:32] LABS: ABS Eosinophils 0.2 10^3/ul (0-0.6); ABS Lymphocytes 1.9 10^3/ul (1.0-4.8); ABS Monocytes 0.8 10^3/ul (0-0.8); ABS Neutrophils 5.6 10^3/ul (1.5-7.7); Eosinophil % 2.3 %; Lymphocyte % 21.8 %
[2019-12-03] MEDS: Nystatin SUSPENSION 100,000 UNITS/ML UDC PO SCH ×4 (09:13→20:31)
[2019-12-03] MEDS: Pantoprazole VIAL 40 MG VIAL IV SCH (10:26)
[2019-12-03] MEDS: Lactated Ringers 1000 ml BAG 1,000 ML IV SCH (14:44)
[2019-12-03] MEDS ORDERED: KCL 20 MEQ/100 ML IVPREMIX 20 MEQ/100 ML BAG IV ONE (15:00)
[2019-12-04] MEDS: HYDROmorphone 0.5 MG/0.5 ML SYRINGE IV SLOW PU PRN (02:46)
[2019-12-04] MEDS: Lactated Ringers 1000 ml BAG 1,000 ML IV SCH ×2 (03:55→18:09)
[2019-12-04] MEDS: Heparin 5000 UNITS/ML 1 mL VIAL SUBCUT SCH ×2 (05:38→13:50)
[2019-12-04 05:59] LABS: Calcium 7.8 mg/dL (8.6-10.3); Magnesium 1.8 mg/dL (1.9-2.7); Potassium 3.6 mmol/L (3.5-5.0)
[2019-12-04 06:04] LABS: BUN/Creatinine Ratio 26.7 (8-20); EGFR African American 163.5 (>60); EGFR Non-African American 135.1 (>60)
[2019-12-04] MEDS: Nystatin SUSPENSION 100,000 UNITS/ML UDC PO SCH ×4 (08:57→21:22)
[2019-12-04] MEDS: Pantoprazole VIAL 40 MG VIAL IV SCH (08:57)
[2019-12-04] MEDS ORDERED: Potassium Chlor 20 meq TAB.ER PO ONE (09:00)
[2019-12-04] MEDS: Ondansetron 4 mg VIAL 2 MG/ML 2 ml VIAL IV PRN (12:30)
[2019-12-04 12:58] LABS: Hematocrit 29 % (35-47)
[2019-12-05 05:43] LABS: ABS Eosinophils 0.2 10^3/ul (0-0.6); ABS Lymphocytes 1.4 10^3/ul (1.0-4.8); ABS Monocytes 0.8 10^3/ul (0-0.8); ABS Neutrophils 5.2 10^3/ul (1.5-7.7); Eosinophil % 2.5 %; Hematocrit 27 % (35-47); Hemoglobin 9.3 g/dL (12.0-16.0); Lymphocyte % 18.7 %; Mean Corpuscular HGB Conc 35 g/dL (31-36); Mean Corpuscular Hemoglobin 29 pg (27-31); Mean Corpuscular Volume 84 fL (80-97); Mean Platelet Volume 7.4 fL (7.4-10.4); Nucleated Red Blood Cells % 0.1; Platelet Count 351 10^3/uL (150-450); Red Cell Distribution Width 14 % (10-15); White Blood Count 7.5 10^3/uL (3.5-10.8)
[2019-12-05 05:55] LABS: INR 1.44 (0.82-1.09)
[2019-12-05 06:02] LABS: Calcium 7.9 mg/dL (8.6-10.3); EGFR African American 163.5 (>60); EGFR Non-African American 135.1 (>60); Magnesium 1.6 mg/dL (1.9-2.7); Phosphorus 2.4 mg/dL (2.5-5.0); Potassium 3.3 mmol/L (3.5-5.0)
[2019-12-05] MEDS ORDERED: Magnesium Sulfate IV 3 GM in NS 0.9% 100 ml BAG 100 ML IVPB ONE (07:10)
[2019-12-05 08:24] LABS: Albumin 2.8 g/dL (3.2-5.2)
[2019-12-05] MEDS ORDERED: Magnesium Sulfate IV 1GM/100ML 1 GM/100 ML BAG IV ONE ×2 (08:35→08:36)
[2019-12-05] MEDS ORDERED: Potassium Phosphate IV 10 MMOLE in NS 0.9% 250 ml 250 ML IVPB ONE (09:00)
[2019-12-05] MEDS ORDERED: KCL 20 MEQ/100 ML IVPREMIX 20 MEQ/100 ML BAG IV SCH (09:00)
[2019-12-05] MEDS: Pantoprazole VIAL 40 MG VIAL IV SCH (10:18)
[2019-12-05] MEDS: Nystatin SUSPENSION 100,000 UNITS/ML UDC PO SCH ×4 (10:23→19:49)
[2019-12-05] MEDS: KCL 20 MEQ/100 ML IVPREMIX 20 MEQ/100 ML BAG IV SCH ×3 (11:14→15:38)
[2019-12-05 17:47] LABS: Hematocrit 27 % (35-47); Hemoglobin 9.3 g/dL (12.0-16.0)
[2019-12-06 07:15] LABS: ABS Basophils 0.1 10^3/ul (0-0.2); ABS Eosinophils 0.1 10^3/ul (0-0.6); ABS Monocytes 0.9 10^3/ul (0-0.8); ABS Neutrophils 12.7 10^3/ul (1.5-7.7); Eosinophil % 0.8 %; Hematocrit 26 % (35-47); Hemoglobin 9.1 g/dL (12.0-16.0); Lymphocyte % 12.8 %; Mean Corpuscular HGB Conc 35 g/dL (31-36); Mean Corpuscular Hemoglobin 29 pg (27-31); Mean Corpuscular Volume 85 fL (80-97); Mean Platelet Volume 7.7 fL (7.4-10.4); Platelet Count 363 10^3/uL (150-450); Red Cell Distribution Width 15 % (10-15); White Blood Count 15.9 10^3/uL (3.5-10.8)
[2019-12-06 07:30] LABS: BUN/Creatinine Ratio 10.2 (8-20); Calcium 7.7 mg/dL (8.6-10.3); EGFR African American 148.2 (>60); EGFR Non-African American 122.5 (>60); Magnesium 1.7 mg/dL (1.9-2.7); Potassium 3.5 mmol/L (3.5-5.0)
[2019-12-06] MEDS: Pantoprazole VIAL 40 MG VIAL IV SCH (10:42)
[2019-12-06] MEDS: Nystatin SUSPENSION 100,000 UNITS/ML UDC PO SCH ×4 (10:42→20:46)
[2019-12-06 11:54] LABS: Urine Appearance Clear; Urine Bilirubin Negative (Negative); Urine Blood Negative (Negative); Urine Color Yellow; Urine Glucose Negative (Negative); Urine Ketones Trace (Negative); Urine Nitrite Negative (Negative); Urine Protein Negative (Negative); Urine Specific Gravity 1.015 (1.010-1.030); Urine Urobilinogen Negative (Negative)
[2019-12-06 12:35] LABS: Urine Bacteria Absent (Absent); Urine Red Blood Cell Absent (Absent); Urine White Blood Cell 1+(6-10/hpf) (Absent)
[2019-12-06] MEDS ORDERED: Iohexol 300 (CONTRAST) 10 ML SDV IV ONE (16:02)
[2019-12-06] MEDS: Heparin 5000 UNITS/ML 1 mL VIAL SUBCUT SCH ×2 (17:03→22:18)
[2019-12-07 04:59] LABS: ABS Eosinophils 0.3 10^3/ul (0-0.6); ABS Lymphocytes 1.8 10^3/ul (1.0-4.8); ABS Monocytes 0.8 10^3/ul (0-0.8); ABS Neutrophils 10.1 10^3/ul (1.5-7.7); Eosinophil % 2.1 %; Hematocrit 27 % (35-47); Hemoglobin 9.2 g/dL (12.0-16.0); Lymphocyte % 13.7 %; Mean Corpuscular HGB Conc 34 g/dL (31-36); Mean Corpuscular Hemoglobin 29 pg (27-31); Mean Corpuscular Volume 85 fL (80-97); Mean Platelet Volume 7.5 fL (7.4-10.4); Platelet Count 399 10^3/uL (150-450); Red Blood Count 3.16 10^6 /uL (3.70-4.87); Red Cell Distribution Width 15 % (10-15)
[2019-12-07 05:18] LABS: BUN/Creatinine Ratio 13.2 (8-20); Calcium 8.2 mg/dL (8.6-10.3); EGFR African American 135.3 (>60); EGFR Non-African American 111.9 (>60); Magnesium 1.8 mg/dL (1.9-2.7); Potassium 3.2 mmol/L (3.5-5.0)
[2019-12-07] MEDS: Heparin 5000 UNITS/ML 1 mL VIAL SUBCUT SCH (05:59)
[2019-12-07] MEDS ORDERED: Magnesium Sulfate 2 gm BAG 2 GM/50 ML BAG IVPB ONE (07:15)
[2019-12-07 07:46] VITALS: BP 137/67
[2019-12-07] MEDS ORDERED: KCL 20 MEQ/100 ML IVPREMIX 20 MEQ/100 ML BAG IV SCH (08:00)
[2019-12-07] MEDS: Nystatin SUSPENSION 100,000 UNITS/ML UDC PO SCH (08:04)
[2019-12-07] MEDS: Potassium Chlor 20 meq TAB.ER PO SCH ×2 (09:08→12:35)
[2019-12-07] MEDS: Pantoprazole VIAL 40 MG VIAL IV SCH (09:08)
== END 2019-12-07 12:40 | disposition home or self-care (01) | DRG 331 ==
LOC: ED 08:00 → SSU 11:49
PROVIDERS: ADMIT Internal Medicine; ATTEND Internal Medicine

== ENCOUNTER 2021-06-21 19:04 | Inpatient (IN) ==
[2021-06-21 20:06] LABS: ABS Lymphocytes 0.4 10^3/ul (1.0-4.8); ABS Monocytes 0.5 10^3/ul (0-0.8); ABS Neutrophils 8.4 10^3/ul (1.5-7.7); Hematocrit 42 % (35-47); Lymphocyte % 4.3 %; Mean Corpuscular HGB Conc 34 g/dL (31-36); Mean Corpuscular Hemoglobin 29 pg (27-31); Mean Corpuscular Volume 85 fL (80-97); Mean Platelet Volume 7.4 fL (7.4-10.4); Platelet Count 373 10^3/uL (150-450); Red Cell Distribution Width 15 % (10-15); White Blood Count 9.4 10^3/uL (3.5-10.8)
[2021-06-21 20:54] LABS: Albumin 4.4 g/dL (3.2-5.2); Calcium 9.9 mg/dL (8.6-10.3); Potassium 4.4 mmol/L (3.5-5.0); Total Bilirubin 0.7 mg/dL (0.2-1.0)
[2021-06-21 21:01] LABS: Albumin/Globulin Ratio 1.4 (1-3); C Reactive Protein 25.71 mg/L (<8.01); Globulin 3.1 g/dL (2-4); Total Protein 7.5 g/dL (6.4-8.9)
[2021-06-21] MEDS ORDERED: Iodixanol (CONTRAST) 320 MG/ML 100 ML SDV IV ONE (21:07)
[2021-06-21] MEDS ORDERED: Ondansetron 4 mg VIAL 2 MG/ML 2 ml VIAL IV ONE (21:12)
[2021-06-21] MEDS ORDERED: Lactated Ringers 1000 ml BAG 1,000 ML IV ONE (22:39)
[2021-06-21] MEDS ORDERED: fentaNYL 100 mcg/2 ml 50 MCG/ML VIAL IV SLOW PU ONE (22:43)
[2021-06-21] MEDS: Lactated Ringers 1000 ml BAG 1,000 ML IV SCH (23:50)
[2021-06-22] MEDS: HYDROmorphone 1 MG/1 ML SYRINGE IV SLOW PU PRN ×3 (01:22→10:26)
[2021-06-22] MEDS: Ondansetron 4 mg VIAL 2 MG/ML 2 ml VIAL IV PRN ×3 (01:22→10:38)
[2021-06-22] MEDS: Lactated Ringers 1000 ml BAG 1,000 ML IV SCH ×2 (06:06→22:28)
[2021-06-22 06:20] LABS: ABS Lymphocytes 1.7 10^3/ul (1.0-4.8); ABS Monocytes 1.1 10^3/ul (0-0.8); ABS Neutrophils 4.4 10^3/ul (1.5-7.7); Eosinophil % 0.1 %; Hematocrit 35 % (35-47); Hemoglobin 11.8 g/dL (12.0-16.0); Mean Corpuscular HGB Conc 34 g/dL (31-36); Mean Corpuscular Hemoglobin 29 pg (27-31); Mean Corpuscular Volume 84 fL (80-97); Mean Platelet Volume 7.2 fL (7.4-10.4); Platelet Count 316 10^3/uL (150-450); Red Blood Count 4.11 10^6 /uL (3.70-4.87); Red Cell Distribution Width 15 % (10-15); White Blood Count 7.2 10^3/uL (3.5-10.8)
[2021-06-22 06:41] LABS: INR 1.16 (0.86-1.15)
[2021-06-22 07:23] LABS: Calcium 8.6 mg/dL (8.6-10.3); Magnesium 1.9 mg/dL (1.9-2.7); Potassium 4.2 mmol/L (3.5-5.0); eGFR CKD-EPI 80.2 (>60)
[2021-06-22] MEDS ORDERED: Famotidine IV 10 MG/ML 2 ml VIAL (20 mg) IV ONE (10:44)
[2021-06-22] MEDS ORDERED: Lactated Ringers 1000 ml BAG 1,000 ML IV SCH (11:00)
[2021-06-22] MEDS ORDERED: ceFAZolin 2 GM PREMIX 2 GM/50 ML BAG ONE (11:02)
[2021-06-22] MEDS ORDERED: metroNIDAZOLE IV 500 MG/100ML 500 MG/100 ML BAG ONE (11:03)
[2021-06-22] MEDS ORDERED: Dexamethasone IV 4 MG/ML VIAL 1 ml VIAL ONE (11:31)
[2021-06-22] MEDS ORDERED: Propofol 10 MG/ML 20 ML BTL ONE (11:31)
[2021-06-22] MEDS ORDERED: Midazolam 2 mg/2 ml VIAL 1 mg/ml 2 ml VIAL (2 mg) ONE (11:31)
[2021-06-22] MEDS ORDERED: Famotidine IV 10 MG/ML 2 ml VIAL (20 mg) ONE (11:31)
[2021-06-22] MEDS ORDERED: fentaNYL 100 mcg/2 ml 50 MCG/ML VIAL ONE ×2 (11:31→14:57)
[2021-06-22] MEDS ORDERED: Rocuronium 50 mg VIAL 10 mg/ml 5 ml VIAL (50 mg) ONE (11:31)
[2021-06-22] MEDS ORDERED: Lidocaine 2% PF 5 ML VIAL ONE (11:45)
[2021-06-22] MEDS ORDERED: Bupivacaine 0.5% 50 ML MDV VIAL ONE (12:08)
[2021-06-22] MEDS ORDERED: Phenylephrine 40 mcg/mL 10mL (400mcg) SYRINGE ONE (12:18)
[2021-06-22] MEDS ORDERED: EPHEDrine (Pressors) 50 MG/ML VIAL ONE (12:54)
[2021-06-22] MEDS ORDERED: Acetaminophen IV 1 GM/100ML 100 ML IV ONE (13:20)
[2021-06-22] MEDS ORDERED: fentaNYL 100 mcg/2 ml 50 MCG/ML VIAL IV PRN (13:21)
[2021-06-22] MEDS ORDERED: Naloxone 0.4 mg VIAL 0.4 mg/ml 1 ml VIAL IV PRN (13:21)
[2021-06-22] MEDS ORDERED: Ondansetron 4 mg VIAL 2 MG/ML 2 ml VIAL IV PRN (13:21)
[2021-06-22] MEDS ORDERED: DiMENhydriNATE IV 50 mg/ml 1 ml VIAL IV PUSH PRN (13:21)
[2021-06-22] MEDS ORDERED: Ondansetron 4 mg VIAL 2 MG/ML 2 ml VIAL ONE (14:55)
[2021-06-22] MEDS ORDERED: HYDROmorphone 0.5 MG/0.5 ML SYRINGE IV PRN (17:32)
[2021-06-22] MEDS: Heparin 5000 UNITS/ML 1 mL VIAL SUBCUT SCH (22:28)
[2021-06-23] MEDS: Lactated Ringers 1000 ml BAG 1,000 ML IV SCH (03:11)
[2021-06-23] MEDS: Heparin 5000 UNITS/ML 1 mL VIAL SUBCUT SCH ×3 (05:23→22:19)
[2021-06-24] MEDS: Heparin 5000 UNITS/ML 1 mL VIAL SUBCUT SCH ×2 (05:27→15:11)
[2021-06-24 05:48] LABS: Hematocrit 32 % (35-47); Hemoglobin 10.6 g/dL (12.0-16.0)
[2021-06-24 11:41] VITALS: BP 126/71
== END 2021-06-24 16:55 | disposition home or self-care (01) | DRG 354 ==
LOC: EDHOLD 19:04 → ED 19:04 → SSU 06-22 00:44
PROVIDERS: ADMIT Surgery; ATTEND Surgery